=== PATIENT | female | born 1990 | race Caucasian/White ===

== ENCOUNTER 2018-04-04 10:15 | Outpatient (RCR) | payer MEDICAID, SELFPAY | END 2018-04-04 10:16 | disposition home or self-care (01) | LOC: PT 10:15 | PROVIDERS: Visit Provider Orthopaedic Surgery | DX: S82.899A Other fracture of unspecified lower leg, initial encounter for closed fracture (principal) | CPT/HCPCS: 97760 ==

== ENCOUNTER → 2018-04-11 11:44 | Outpatient (CLI) | payer MEDICAID, SELFPAY ==
--- NOTE | 2018-04-11 11:46 | XR_ITS ---
XR ankle RT min 3V HISTORY: Follow-up fracture ITS.REASON: Right Ankle Fracture ORDERING PHYSICIAN: Amaris Herrera MD PATIENT AGE: 27 years Comparison: 04/02/2018 FINDINGS: Oblique distal fibular fracture once again noted nondisplaced with good alignment. Fracture lines not significant change. IMPRESSION: Overall no change in nondisplaced oblique distal fibular fracture
== END ==
PROVIDERS: PCP Nurse Practitioner Family; Visit Provider Orthopaedic Surgery
DX: S82.899A Other fracture of unspecified lower leg, initial encounter for closed fracture (principal)
CPT/HCPCS: 73610

== ENCOUNTER → 2018-05-09 13:36 | Outpatient (CLI) | payer MEDICAID, SELFPAY ==
--- NOTE | 2018-05-09 13:38 | XR_ITS ---
XR ankle RT min 3V HISTORY: Follow-up ankle fracture ITS.REASON: Rt ankle fx ORDERING PHYSICIAN: Amaris Herrera MD PATIENT AGE: 27 years Comparison: 04/11/2018 FINDINGS: Nondisplaced oblique fracture involves the distal fibula as before. The fracture line is still visible although somewhat less distinct. No significant callus formation. IMPRESSION: No change nondisplaced oblique fracture distal fibula
== END ==
PROVIDERS: PCP Physician Assistant; Visit Provider Orthopaedic Surgery
DX: S82.891A Other fracture of right lower leg, initial encounter for closed fracture (principal)
CPT/HCPCS: 73610

== ENCOUNTER → 2018-06-06 13:43 | Outpatient (CLI) | payer MEDICAID, SELFPAY ==
--- NOTE | 2018-06-06 13:45 | XR_ITS ---
XR ankle RT min 3V HISTORY: Follow-up fracture ITS.REASON: Rt Ankle Fx ORDERING PHYSICIAN: Amaris Herrera MD PATIENT AGE: 27 years Comparison: 05/09/2018 FINDINGS: Nondisplaced oblique fracture once again noted involving the distal fibula exiting medially at the level of the ankle joint. Fracture line is still visible with no obvious significant callus formation.. Ankle mortise is not widened. IMPRESSION: No change nondisplaced oblique fracture of the distal fibula
== END ==
PROVIDERS: PCP Physician Assistant; Visit Provider Orthopaedic Surgery
DX: S82.891A Other fracture of right lower leg, initial encounter for closed fracture (principal)
CPT/HCPCS: 73610

== ENCOUNTER → 2018-07-04 13:42 | Outpatient (CLI) | payer MEDICAID, SELFPAY ==
--- NOTE | 2018-07-04 14:06 | XR_ITS ---
XR ankle wt bearing RT min 3V HISTORY: Follow-up fracture ITS.REASON: Rt ankle fx ORDERING PHYSICIAN: Amaris Herrera MD PATIENT AGE: 27 years Comparison: 06/06/2018 FINDINGS: Nondisplaced oblique fracture once again noted involving the distal fibula overall not significant change. There is good alignment in the ankle mortise is well-preserved. Fracture line still visible. IMPRESSION: No change oblique nondisplaced fracture distal fibula
== END ==
PROVIDERS: PCP Physician Assistant; Visit Provider Orthopaedic Surgery
DX: S82.899A Other fracture of unspecified lower leg, initial encounter for closed fracture (principal)
CPT/HCPCS: 73610

== ENCOUNTER 2018-08-11 16:30 | Outpatient (RCR) | payer MEDICAID, SELFPAY ==
--- NOTE | 2018-06-12 12:12 | HMH.PTOPEV ---
PT Outpatient Evaluation Rehab PT Outpatient Evaluation Start: 06/12/18 11:42 Freq: Status: Active Protocol: Document 06/12/18 11:42 LINDA (Rec: 06/12/18 12:11 VIOLETASERCANDIDOX [id number]) Electronically Signed By Rinku Taveras, MARQUEZ 06/12/18 11:42 Outpatient Therapy Subjective History Subjective History Pt. is a 27 year old female who presents to outpatient PT for complaints of chronic R ankle/foot pain since 2017. Pt. reports slipping and falling on her R ankle/foot while descending her stairs at home. Recent diagnostic imaging positive for a fracture per pt . report. Pt. reports she was told to discontinue using her axillary crutches 2 weeks ago, but to continue to don her CAM walker boot. Pt. reports she returns to her MD in the middle of 2018. PMH includes two sections . Current medications include Lortab, Prozac, Zyrtec, control, and Buspirone per pt. report. Chief Complaint Pain Symptom Type Ache Sharp Symptoms Relieved By Rest/Positioning Heat Brace/Support Prescription Meds Symptoms Aggravated By Standing Physical Activity Twisting Walking Lifting Prior Functional Limitations None Current Functional Limitations Lifting Housework Dressing Sleeping Standing Squatting Recreation Activity Walking Stairs Balance Symptom Description Constant but Variable Level of pain today (0-10) 2 Pain scale - at its best (0-10) 0 Pain scale - at its worst (0-10) 10 Ankle/Foot Eval Gait Observation General Gait Pattern Observation Antalgic Gait Wide Based Gait
== END 2018-08-20 14:06 | disposition home or self-care (01) ==
LOC: PT 16:30
PROVIDERS: Visit Provider Orthopaedic Surgery
DX: S82.831D Other fracture of upper and lower end of right fibula, subsequent encounter for closed fracture with routine healing (principal)
CPT/HCPCS: 97010; 97014; 97033; 97035; 97110; 97112; 97116; 97140; 97163; 97164; 97760; G0283

== ENCOUNTER → 2018-08-21 08:53 | Outpatient (CLI) | payer MEDICAID, SELFPAY ==
[2018-08-21 14:11] LABS: HCG Qualitative, Serum Negative (Negative)
== END ==
PROVIDERS: PCP Physician Assistant; Visit Provider Nurse Practitioner Family
DX: N91.2 Amenorrhea, unspecified (principal)
CPT/HCPCS: 36415; 84703

== ENCOUNTER → 2019-02-22 20:50 | Outpatient (CLI) | payer MEDICAID, SELFPAY ==
[2019-02-23 09:07] LABS: Adenovirus F 40/41, stool Not Detected (NotDetected); Astrovirus Not Detected (NotDetected); Campylobacter Not Detected (NotDetected); Clostridium Difficile A/B, PCR Not Detected (NotDetected); Cryptosporidium Not Detected (NotDetected); Cyclospora Cayetanesis Not Detected (NotDetected); Entamoeba histolytica Not Detected (NotDetected); Enteroaggregative E coli Not Detected (NotDetected); Enterotoxigenic E coli Not Detected (NotDetected); Giardia lamblia Not Detected (NotDetected); Norovirus Not Detected (NotDetected); Plesimonas Shigalloides, PCR Not Detected (NotDetected); Rotavirus A Not Detected (NotDetected); Salmonella, PCR Not Detected (NotDetected); Sapovirus Not Detected (NotDetected); Shiga-like toxin E coli Not Detected (NotDetected); Shigella Enterovasive E coli Not Detected (NotDetected); Vibrio Cholerae Not Detected (NotDetected); Vibrio, PCR Not Detected (NotDetected); Yersinia Entercolitica, PCR Not Detected (NotDetected)
[2019-02-23 16:50] LABS: Enteropathogenic E coli Detected (NotDetected)
== END ==
PROVIDERS: PCP Nurse Practitioner Family; Visit Provider Nurse Practitioner Family
DX: R19.7 Diarrhea, unspecified (principal); A04.0 Enteropathogenic Escherichia coli infection
CPT/HCPCS: 87507

== ENCOUNTER → 2019-09-17 14:55 | Outpatient (CLI) | payer MEDICAID, SELFPAY ==
[2019-09-17 17:07] LABS: HCG,Quantitative 808 mIU/ml (0-5.42)
== END ==
PROVIDERS: Visit Provider Nurse Practitioner Obstetrics & Gynecology
DX: Z34.90 Encounter for supervision of normal pregnancy, unspecified, unspecified trimester (principal)
CPT/HCPCS: 36415; 84702

== ENCOUNTER → 2019-10-15 10:26 | Outpatient (CLI) | payer MEDICAID, SELFPAY ==
[2019-10-15 11:08] LABS: Basophils # 0.1 K/mm3 (0-0.2); Basophils % 0.6 % (0.1-2.0); Eosinophils # 0.1 K/mm3 (0.0-0.4); Eosinophils % 0.3 % (0.1-12.0); Hemoglobin 13.6 g/dL (12.2-16.2); Lymphocytes # 2.7 K/mm3 (0.7-4.5); Lymphocytes % 17.7 % (10-50); Mean Corpuscular HGB Conc 31.6 g/dL (31.8-35.4); Mean Corpuscular Hemoglobin 24.9 pg (27.0-31.2); Mean Corpuscular Volume 78.6 fl (81-99); Monocytes # 0.5 K/mm3 (0.1-1.0); Monocytes % 3.4 % (1.7-9.3); Neutrophils % 77.9 % (37.0-80.0); Platelet Count 370 K/mm3 (142-424); Red Blood Count 5.46 M/mm3 (4.20-5.40); Red Cell Distribution Width 13.4 % (11.5-17.5); White Blood Count 15.4 K/mm3 (4.8-10.8)
[2019-10-15 11:10] LABS: MANUAL DIFFERENTIAL MANUAL DIFFERENTIAL (MANUAL DIFF)
[2019-10-15 12:41] LABS: Anisocytosis 1+; Lymphocytes % 21 % (10-50); Microcytosis 1+; Monocytes % 2 % (2-9); Neutrophils % 74 % (42-76); Platelet Estimate Normal; Total Cells Counted 100
[2019-10-16 05:16] LABS: HIV Screen 4th Generation wRfx Non Reactive (Non Reactive)
[2019-10-16 05:38] LABS: Hepatitis B Surface Antigen Negative (Negative); Hepatitis C Antibody <0.1 s/co ratio (0.0-0.9)
[2019-10-16 09:30] LABS: Rapid Plasma Reagin Ab Titer Non Reactive (NonRea<1:1)
== END ==
PROVIDERS: Visit Provider Nurse Practitioner Obstetrics & Gynecology
DX: Z34.90 Encounter for supervision of normal pregnancy, unspecified, unspecified trimester (principal); Z3A.01 Less than 8 weeks gestation of pregnancy
CPT/HCPCS: 36415; 85007; 85025; 86592; 86703; 86762; 86850; 87340; 87380; G0432

== ENCOUNTER → 2019-10-22 09:19 | Outpatient (CLI) | payer MEDICAID, SELFPAY ==
--- NOTE | 2019-10-22 09:19 | US_ITS ---
PROCEDURE: US OB TRANSVAGINAL CLINICAL INDICATION: for dates Early Ob evaluation for dates COMPARISON: No exams were available for comparison FINDINGS: An intrauterine gestational sac is present with a pole with a crown-rump length of 2.6cm correlating to gestational age of 9weeks 3days. heart tones are present with an FHR of 182bpm. Yolk sac is noted. Ovaries are not identified. IMPRESSION: Live IUP at 9 weeks 3 days Estimated due date by Ultrasound is 05/23/2020 Dictated by: Eloy Manrique MD 10/22/2019 13:55 Electronically signed by Eloy Manrique MD in [place] 10/22/2019 13:55
== END ==
PROVIDERS: PCP Nurse Practitioner Family; Visit Provider Nurse Practitioner Obstetrics & Gynecology
DX: Z34.90 Encounter for supervision of normal pregnancy, unspecified, unspecified trimester (principal)
CPT/HCPCS: 76817

== ENCOUNTER → 2019-11-26 11:01 | Outpatient (CLI) | payer MEDICAID, SELFPAY | PROVIDERS: Visit Provider Nurse Practitioner Obstetrics & Gynecology | DX: Z36.0 Encounter for antenatal screening for chromosomal anomalies (principal) | CPT/HCPCS: 36415 ==

== ENCOUNTER 2019-12-26 14:36 | Emergency (ER) | payer MEDICAID, SELFPAY ==
[2019-12-26 14:42] VITALS: BP 116/78; PULSE 95; RESP 18; TEMP 36.8; O2SAT 100; BMI 36.7
[2019-12-26 15:11] VITALS: BP 116/78; PULSE 95; RESP 18; TEMP 36.8; O2SAT 100; BMI 36.6
[2019-12-26 15:14] VITALS: BP 116/78; PULSE 95; RESP 18; TEMP 36.8; O2SAT 100; BMI 36.6
--- NOTE | 2019-12-26 15:19 | HMH.EDUTC ---
[facility] Disposition Clinical Impression: Dizzy spells Disposition: Still a Patient Condition on Discharge: Good Referrals: Ronna Rainey [Primary Care Provider] - Time of Disposition: 15:05 Medical Decision Making - Burton Inquiry Pt receiving controlled substance: No Vital Signs: 12/26/19 14:42 12/26/19 15:11 12/26/19 15:14 Temperature 98.3 F 98.3 F 98.3 F Temperature Source Oral Oral Oral Pulse Rate [Left Radial] 95 H 95 H 95 H Respiratory Rate 18 18 18 Blood Pressure [Left Arm] 116/78 116/78 116/78 Blood Pressure Mean [Left Arm] 90 90 90 Blood Pressure Source [Left Arm] Automatic Cuff Automatic Cuff Automatic Cuff Blood Pressure Position [Left Arm] Sitting Sitting Sitting 02 Sat by Pulse Oximetry 100 100 100 Oxygen Delivery Method Room Air Room Air Room Air Medical Decision Narrative: sent to ed for eval report to [facility] HPI - General Chief complaint: Dizziness Stated complaint: dizzy Time Seen by Provider: 12/26/19 15:01 Mode of Arrival: Ambulatory Source of Information: Patient Limitations: No Limitations Description of Symptoms (Recalled from Triage Doc. by RN): PATIENT C/O DIZZINESS AND LIGHTHEADEDNESS X 2 DAYS THAT HAS GOTTEN WORSE TODAY. PATIENT IS 18 WEEKS WITH HER THIRD CHILD HEENT Symptoms (Recalled from RN notes): Yes Resp Symptoms (Recalled from RN notes): No Skin Symptoms (Recalled from RN notes): No MS Symptoms (Recalled from RN notes): No Functional Status (Recalled from RN notes): WNL - History of Present Illness Provider Complaint: 29-year-old female presents for dizziness for a few days But worse today. Patient states she also has a headache with pressure. Patient states she inform Dr. Beavers at her visit of her dizziness and she was told it was probably vertigo and to take some magnesium. Patient states it is worse today and even worse if she lays down the room spins. Patient is also complaining of left lower leg pain. Patient is reporting urinary frequency states she went for 5 times last night. Patient states she has had vertigo before and this does not feel like her normal vertigo. - Related Data Home Medications Medication Instructions Recorded Confirmed fluoxetine 40 mg capsule mg PO 11/26/19 12/25/19 levothyroxine 50 mcg tablet PO 11/26/19 12/25/19 Previous Rx's Medication Instructions Recorded promethazine 12.5 mg tablet 12.5 mg PO Q4-6H PRN #30 tab 09/29/19 promethazine 12.5 mg rectal 12.5 mg ND Q6H PRN #12 each 10/15/19 suppository promethazine 6.25 mg/5 mL oral 12.5 mg PO Q4-6H PRN #473 ml 10/15/19 syrup ondansetron 4 mg disintegrating 4 mg PO Q6H #30 tab 11/09/19 tablet ferrous sulfate 325 mg (65 mg 325 mg PO DAILY #90 tab 12/25/19 iron) tablet Allergies Allergy/AdvReac Type Severity Reaction Status Date / Time azithromycin [AZITHROMYCIN] Allergy Mild Verified 12/25/19 11:02 latex [LATEX] Allergy Mild Verified 12/25/19 11:02 - Worker's Comp Is this a Worker's Comp case?: No [facility] History - Hepatitis A Screen Drug use history?: No High risk sexual behaviors?: No History of sexually transmitted infection?: No Currently employed?: No Childcare worker?: No Do you have indoor plumbing?: Yes Do you have electricity?: Yes Attestation statement:: This patient has been screened for Hepatitis A risk factors. I have reviewed the patient's past medical history: Yes 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: Reports:: Anxiety, Depression Other Surgeries: Yes: Amputation: No Fractures: Yes (ANKLE) - Social History Smoking Status: Never smoker Alcohol Intake: never Alcohol Intake Frequency:: other Occupational Status: other Housing: house - Psychiatric History Pschychiatric History:: Reports:: Anxiety, Depression Family Hx:: Non-contributory ROS Obtained: Yes Systems reviewed as appropriate & no additional complaints - Constitutional Constitutional: Reports system reviewed and no additional complaints, except as Wilkins
--- NOTE | 2019-12-26 15:20 | PC.NURSE ---
PATIENT SENT TO ER PER SANDY HINKLE APRN FOR FURTHER EVALUATION
--- NOTE | 2019-12-26 15:28 | HMH.EDDIZZ ---
ED Disposition Clinical Impression: Dizzy spells, BPPV (benign paroxysmal positional vertigo) Disposition: Home, Self-Care Condition on Discharge: Good Prescriptions: Meclizine HCl [Meclizine 25mg Tab] 25 mg PO Q8HP PRN #30 tab PRN Reason: dizziness/vertigo Transmission Status: Pending to [facility] Referrals: Ronna Rainey [Primary Care Provider] - - Critical Care Critical Care Time: No Attestation: On 12/26/19, the high probability of a clinically significant, sudden or life threatening deterioration of the following system(s) required my full and direct attention, intervention and personal management. The time I documented below is in addition to time spent performing reported procedures but includes the following listed in this critical care notation. Medical Decision Making - Medical Records Medical records reviewed: Yes: I reviewed the patient's medical records. - Burton Inquiry Pt receiving controlled substance: No Vital Signs: 12/26/19 14:42 12/26/19 15:11 12/26/19 15:14 Temperature 98.3 F 98.3 F 98.3 F Temperature Source Oral Oral Oral Pulse Rate [Left Radial] 95 H 95 H 95 H Respiratory Rate 18 18 18 Blood Pressure [Left Arm] 116/78 116/78 116/78 Blood Pressure Mean [Left Arm] 90 90 90 Blood Pressure Source [Left Arm] Automatic Cuff Automatic Cuff Automatic Cuff Blood Pressure Position [Left Arm] Sitting Sitting Sitting 02 Sat by Pulse Oximetry 100 100 100 Oxygen Delivery Method Room Air Room Air Room Air 12/26/19 16:57 Temperature Temperature Source Pulse Rate [Left Radial] 78 Respiratory Rate Blood Pressure [Left Arm] 95/47 L Blood Pressure Mean [Left Arm] 63 Blood Pressure Source [Left Arm] Automatic Cuff Blood Pressure Position [Left Arm] Sitting 02 Sat by Pulse Oximetry 97 Oxygen Delivery Method Room Air - Lab Data Lab results reviewed: Yes: I reviewed the patient's lab results. Lab Results 12/26/19 16:56: WBC 14.5 H, RBC 4.62, Hgb 12.2, Hct 36.0 L, MCV 77.9 L, MCH 26.4 L, MCHC 33.8, RDW 14.9, Plt Count 329, MPV 7.6, Neut % (Auto) 79.3, Lymph % (Auto) 16.9, Loving % (Auto) 3.2, Eos % (Auto) 0.5, Baso % (Auto) 0.1, Neut # (Auto) 11.5 H, Lymph # (Auto) 2.5, Loving # (Auto) 0.5, Eos # (Auto) 0.1, Baso # (Auto) 0.0 12/26/19 16:56: Sodium 135 L, Potassium 3.9, Chloride 103, Carbon Dioxide 25, Anion Gap 10.9, BUN 5 L, Creatinine 0.50 L, Estimated Creat Clear 216, Estimated GFR 146, Est GFR ( Amer) 177, Glucose 99, Calcium 9.3 12/26/19 16:56: Magnesium 1.8 Result diagrams: 12/26/19 16:56 12/26/19 16:56 Orders (Tests/Meds): ED MEDICATIONS Discontinued Medications Generic Name Dose Route Start Last Admin Trade Name Freq PRN Reason Stop Dose Admin Ketorolac Tromethamine 60 mg 12/26/19 15:27 12/26/19 16:43 Toradol 60mg/2ml Vial IM 12/26/19 15:28 60 mg ONCE ONE Administration Dizzy HPI - General Chief Complaint: Dizziness Stated Complaint: dizzy Time Seen by Provider: 12/26/19 15:01 Mode of Arrival: Ambulatory Source of Information: Patient Limitations: No Limitations Description of Symptoms (Recalled from ER Triage Doc. by RN): PATIENT C/O DIZZINESS AND LIGHTHEADEDNESS X 2 DAYS THAT HAS GOTTEN WORSE TODAY. PATIENT IS 18 WEEKS WITH HER THIRD CHILD - History of Present Illness HPI Narrative: Is a 29-year-old female who presents with 2-day history of dizziness patient reports dizziness worsens upon standing or change in position. She does report that the dizziness began after she had a pop in her left ear followed by the dizziness. Dizziness is moderate in intensity. Patient also reports a global headache that began shortly after her presentation to the emergency department. Pain is dull and global not exacerbated or alleviated by anything. No fever no chills or photophobia. No changes in vision or hearing. Patient does report she is 18 weeks . - Related Data Home Medications Medication Instructions
[2019-12-26 16:57] VITALS: BP 95/47; PULSE 78; O2SAT 97
[2019-12-26 17:15] LABS: Chloride 103 mmol/L (98-107); Potassium 3.9 mmoL/L (3.5-5.1); Sodium 135 mmol/L (136-145)
[2019-12-26 17:18] LABS: Blood Urea Nitrogen 5 mg/dl (7-17); Creatinine Clearance Estimated 216 mL/min (50-200); Estimated Glomerular Filt Rate 146 ml/min (>60); GFR (African American) 177 ML/MIN (>60)
[2019-12-26 17:19] LABS: Anion Gap 10.9 mEq/L (5-15); Calcium 9.3 mg/dl (8.4-10.2); Carbon Dioxide 25 mmol/L (22.0-30.0); Glucose 99 mg/dl (74-100); Magnesium 1.8 mg/dl (1.6-2.3)
[2019-12-26 17:30] LABS: Basophils % 0.1 % (0.1-2.0); Eosinophils # 0.1 K/mm3 (0.0-0.4); Eosinophils % 0.5 % (0.1-12.0); Hemoglobin 12.2 g/dL (12.2-16.2); Lymphocytes # 2.5 K/mm3 (0.7-4.5); Lymphocytes % 16.9 % (10-50); Mean Corpuscular HGB Conc 33.8 g/dL (31.8-35.4); Mean Corpuscular Hemoglobin 26.4 pg (27.0-31.2); Mean Corpuscular Volume 77.9 fl (81-99); Mean Platelet Volume 7.6 fl (7.4-10.4); Monocytes # 0.5 K/mm3 (0.1-1.0); Monocytes % 3.2 % (1.7-9.3); Neutrophils # 11.5 K/mm3 (1.8-7.8); Neutrophils % 79.3 % (37.0-80.0); Platelet Count 329 K/mm3 (142-424); Red Blood Count 4.62 M/mm3 (4.20-5.40); Red Cell Distribution Width 14.9 % (11.5-17.5); White Blood Count 14.5 K/mm3 (4.8-10.8)
[2019-12-26 17:51] VITALS: BP 95/47; PULSE 78; RESP 18; TEMP 36.8; O2SAT 97
== END 2019-12-26 17:52 | disposition home or self-care (01) ==
LOC: UTC 14:45 → ER 15:01
PROVIDERS: Emergency Provider Emergency Medicine; PCP Nurse Practitioner Family
DX: H81.10 Benign paroxysmal vertigo, unspecified ear (principal); Z3A.18 18 weeks gestation of pregnancy; F41.8 Other specified anxiety disorders; Z79.899 Other long term (current) drug therapy
CPT/HCPCS: 80048; 83735; 85025; 96372; 99282; 99283

== ENCOUNTER → 2020-01-07 10:11 | Outpatient (CLI) | payer MEDICAID, SELFPAY ==
--- NOTE | 2020-01-07 10:11 | US_ITS ---
PROCEDURE: US OB /MATERNAL DETAIL CLINICAL INDICATION: 20 week gestation Twenty week anatomy exam COMPARISON: US US OB TRANSVAGINAL from 10/22/2019 FINDINGS: There is a single live fetus which is in cephalic presentation. Cervix is closed and measures 3.9 cm transabdominal. heart body motion noted. Placenta is posterior and grade 1 without previa Complete survey performed and was unremarkable on the submitted images as in PACS. No discrete anomalies identified on survey imaging by technologist. Active fetus. Three-vessel cord with satisfactory umbilical cord insertion. 4- chamber heart noted. Survey of brain & ventricles Unremarkable. Face and neck survey unremarkable. Diaphragm and chest views unremarkable. Abdomen: Both kidneys noted and unremarkable. Stomach noted and satisfactory. Spine: Survey of the spine satisfactory with no anomalies identified nor imaged. Both arms and legs noted. Amniotic Fluid: Adequate. Maternal adnexa: No significant findings. Measurements: Average ultrasound age 20weeks. Gestational Age 20weeks 2days Estimated due date by ultrasound age 1205/26/2020. Estimated weight 340g BPD = 20weeks OFD = 20weeks HC = 19weeks 2days AC = 20weeks 6days FL = 19weeks 6days Growth Percentile= 42Percent% Heart Rate = 139bpm Cerebellum = 20weeks 5days Humerus = 20weeks 5days HC/AC is 1.05 CI is 0.8 FL/BPD is 0.69 FL/AC is 0.2 IMPRESSION: Live IUP at 20 weeks 0 days. No obvious anomalies. Please see above for detail Dictated by: Eloy Manrique MD 01/08/2020 10:16 Eloy Manrique MD in [place] 01/08/2020 10:16
== END ==
PROVIDERS: PCP Nurse Practitioner Family; Visit Provider Nurse Practitioner Obstetrics & Gynecology
DX: Z34.90 Encounter for supervision of normal pregnancy, unspecified, unspecified trimester (principal); Z3A.20 20 weeks gestation of pregnancy
CPT/HCPCS: 76811

== ENCOUNTER → 2020-02-16 07:01 | Outpatient (CLI) | payer MEDICAID, SELFPAY ==
[2020-02-16 08:55] LABS: Glucose 1 Hour 176 mg/dL (74-100); Glucose,Fasting 92 mg/dl (74-100)
== END ==
PROVIDERS: Visit Provider Nurse Practitioner Obstetrics & Gynecology
DX: Z34.90 Encounter for supervision of normal pregnancy, unspecified, unspecified trimester (principal)
CPT/HCPCS: 36415; 82951

== ENCOUNTER → 2020-02-18 07:00 | Outpatient (CLI) | payer MEDICAID, SELFPAY ==
[2020-02-18 07:46] LABS: Glucose,Fasting 98 mg/dl (74-100)
[2020-02-18 09:09] LABS: Glucose 1 Hour 202 mg/dL (74-100)
[2020-02-18 10:09] LABS: Glucose 2 Hour 158 mg/dL (74-100)
[2020-02-18 11:17] LABS: Glucose 3 Hour 145 mg/dL (74-100)
== END ==
PROVIDERS: Visit Provider Nurse Practitioner Obstetrics & Gynecology
DX: Z34.90 Encounter for supervision of normal pregnancy, unspecified, unspecified trimester (principal)
CPT/HCPCS: 36415; 82951

== ENCOUNTER → 2020-04-22 10:24 | Outpatient (CLI) | payer MEDICAID, SELFPAY ==
--- NOTE | 2020-04-22 10:24 | US_ITS ---
PROCEDURE: US OB BIOPHYSICAL PROFILE CLINICAL INDICATION: gestational diabetes TECHNIQUE: FINDINGS: The following parameters are obtained: Average ultrasound age is Average 34 weeks 0 days estimated due date by ultrasound is 06/03/2020. Estimated weight is 2429 g which is 20th percentile. BPD: 33 weeks 6 days OFD: 31 weeks 1 day HC: 32 weeks 1 day AC: 34 weeks 6 days FL: 35 weeks 0 days heart rate: 152 bpm. HC/AC: 0.94 Cephalic index: 84 percent FL/BPD: 81 percent FL/AC: 22 percent Amniotic fluid index: 10 cm Qualitative AFV: 2 breathing movements: 2 Gross body movements: 2 Tone: 2 Biophysical profile score: 8 The fetus is in cephalic presentation. Heart rate is 146 BPM. The placenta is posterior and lateral and is grade 2-3 IMPRESSION: Live IUP in cephalic presentation with an average ultrasound age of 34 weeks 0 days. Estimated weight is 2004 in 29 g which is 20th percentile. Placenta is posterior and lateral and grade 2-3 Biophysical profile 8 of 8 ZACH 10 cm Dictated by: Eloy Manrique MD 04/22/2020 15:57 Eloy Manrique MD in [place] 04/22/2020 15:57
== END ==
PROVIDERS: PCP Nurse Practitioner Family; Visit Provider Nurse Practitioner Obstetrics & Gynecology
DX: O24.419 Gestational diabetes mellitus in pregnancy, unspecified control (principal)
CPT/HCPCS: 76811; 76819

== ENCOUNTER 2020-04-29 11:20 | Outpatient (CLI) | payer MEDICAID, SELFPAY ==
[2020-04-29 11:49] VITALS: BP 110/80; PULSE 110; RESP 20; O2SAT 97; BMI 38.0
== END 2020-04-29 13:15 | disposition home or self-care (01) ==
LOC: OBOUT 11:22 → OB 11:22
PROVIDERS: PCP Surgery; Visit Provider Nurse Practitioner Obstetrics & Gynecology
DX: O47.03 False labor before 37 completed weeks of gestation, third trimester (principal); Z3A.36 36 weeks gestation of pregnancy; R11.0 Nausea
CPT/HCPCS: 59025; 96372; G0463

== ENCOUNTER → 2020-04-29 15:55 | Outpatient (CLI) | payer MEDICAID, SELFPAY ==
[2020-04-29 15:58] LABS: Microscopic, Urine URINE MICROSCOPIC (MICROSCOPIC)
[2020-04-29 16:42] LABS: Appearance,Urine CLEAR (Clear); Bilirubin,Urine Negative (Negative); Blood, Urine Negative (Negative); Color,Urine YELLOW (Yellow); Glucose,Urine (UA) Negative (Negative); Ketones,Urine Negative (Negative); Leukocyte Esterase,Urine Negative (Negative); Nitrate,Urine Negative (Negative); Protein,Urine Negative (Negative); Urobilinogen,Urine 0.2 EU/dl (0.2)
[2020-04-29 17:44] LABS: Bacteria,Urine 2+ /lpf
== END ==
PROVIDERS: Visit Provider Nurse Practitioner Obstetrics & Gynecology
DX: Z34.90 Encounter for supervision of normal pregnancy, unspecified, unspecified trimester (principal); Z3A.36 36 weeks gestation of pregnancy
CPT/HCPCS: 81001; 86403; 87086

== ENCOUNTER → 2020-05-05 15:05 | Outpatient (CLI) | payer MEDICAID, SELFPAY ==
[2020-05-05 15:06] LABS: Microscopic, Urine URINE MICROSCOPIC (MICROSCOPIC)
[2020-05-05 15:38] LABS: Appearance,Urine SL CLOUDY (Clear); Bilirubin,Urine Negative (Negative); Blood, Urine Negative (Negative); Color,Urine YELLOW (Yellow); Glucose,Urine (UA) Negative (Negative); Ketones,Urine Negative (Negative); Leukocyte Esterase,Urine Negative (Negative); Nitrate,Urine Negative (Negative); PH,Urine 5.5 (5.0-8.5); Protein,Urine Negative (Negative); Urobilinogen,Urine 0.2 EU/dl (0.2)
[2020-05-05 15:49] LABS: Bacteria,Urine 1+ /lpf; WBC,Urine Occasional #/hpf (0-3)
== END ==
PROVIDERS: Visit Provider Nurse Practitioner Obstetrics & Gynecology
DX: Z34.90 Encounter for supervision of normal pregnancy, unspecified, unspecified trimester (principal); Z3A.37 37 weeks gestation of pregnancy
CPT/HCPCS: 81001

== ENCOUNTER 2020-05-16 05:22 | Inpatient (IN) | payer MEDICAID, SELFPAY ==
[2020-05-16] VITALS (10 sets, daily range): BP systolic 102–126; BP diastolic 58–77; PULSE 68–89; RESP 16–20; TEMP 36.1–36.8; O2SAT 96–100; BMI 38.3
[2020-05-16 06:19] LABS: Microscopic, Urine URINE MICROSCOPIC (MICROSCOPIC)
[2020-05-16 06:20] LABS: Chloride 105 mmol/L (98-107)
[2020-05-16 06:21] LABS: Sodium 135 mmol/L (136-145)
[2020-05-16 06:23] LABS: Basophils % 0.4 % (0.1-2.0); Blood Urea Nitrogen 9 mg/dl (7-17); Creatinine Clearance Estimated 188 mL/min (50-200); Eosinophils # 0.1 K/mm3 (0.0-0.4); Eosinophils % 0.6 % (0.1-12.0); Estimated Glomerular Filt Rate 118 ml/min (>60); GFR (African American) 143 ML/MIN (>60); Hematocrit 37.1 % (37.0-47.0); Hemoglobin 12.1 g/dL (12.2-16.2); Lymphocytes # 3.6 K/mm3 (0.7-4.5); Mean Corpuscular HGB Conc 32.6 g/dL (31.8-35.4); Mean Corpuscular Hemoglobin 24.3 pg (27.0-31.2); Mean Corpuscular Volume 74.4 fl (81-99); Monocytes # 0.7 K/mm3 (0.1-1.0); Monocytes % 5.1 % (1.7-9.3); Neutrophils # 8.4 K/mm3 (1.8-7.8); Neutrophils % 65.9 % (37.0-80.0); Platelet Count 368 K/mm3 (142-424); Red Blood Count 4.98 M/mm3 (4.20-5.40); Red Cell Distribution Width 15.9 % (11.5-17.5); White Blood Count 12.8 K/mm3 (4.8-10.8)
[2020-05-16 06:24] LABS: Carbon Dioxide 23 mmol/L (22.0-30.0); Glucose 89 mg/dl (74-100)
[2020-05-16 06:25] LABS: Appearance,Urine CLEAR (Clear); Bilirubin,Urine Negative (Negative); Blood, Urine Negative (Negative); Color,Urine YELLOW (Yellow); Glucose,Urine (UA) Negative (Negative); Ketones,Urine Negative (Negative); Leukocyte Esterase,Urine Negative (Negative); Nitrate,Urine Negative (Negative); Protein,Urine Negative (Negative); Urobilinogen,Urine 0.2 EU/dl (0.2)
[2020-05-16 06:36] LABS: Barbiturates Screen,Urine Negative ng/ml (<200); Benzodiazepines Screen,Urine Negative ng/ml (<200)
[2020-05-16 06:37] LABS: Amphetamine/Metha Screen,Urine Negative ng/ml (<1000)
[2020-05-16 06:39] LABS: Methadone Screen,Urine Negative ng/ml (<300)
[2020-05-16 06:40] LABS: Cannabinoid Screen,Urine Negative ng/ml (<50); Cocaine Screen,Urine Negative ng/ml (<300)
[2020-05-16 06:41] LABS: Opiate Screen,Urine Negative ng/ml (<300); Phencyclidine Screen,Urine Negative ng/ml (<25)
[2020-05-16 06:54] LABS: Coronavirus 19 IgG Antibody Negative (Negative); Coronavirus 19 IgM Antibody Negative (Negative)
--- NOTE | 2020-05-16 07:21 | HMH.OBAPHP ---
OB - H&P: HPI Antepartum - History of Present Illness Chief complaint: Term , previous section, desire for sterilization History of present illness: She is a 29-year-old 3 para 2 at 39 weeks gestational age. She has gestational diabetes that is diet-controlled. She has had 2 previous sections and as result of that is brought in for repeat lower segment transverse section at term. She also expressed desire for sterilization. The risks and benefits as well as the irreversibility of bilateral salpingectomy were discussed with the patient prior to surgery. - History of Present Criteria for establishing EDC:: LMP confirmed by 1st trimester US care: good care Ultrasounds: normal 1st trimester US, normal mid trimester US Obstetrical complications: gestational diabetes Medical complications: none - Labs Blood type: A (+) positive Rubella: immune RPR/VDRL: nonreactive GBS status: negative HBsAG: negative [facility] History I have reviewed the patient's past medical history: Yes 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: Reports:: Anxiety, Depression *Have you ever received a pneumonia vaccine?: No *Have you received a flu vaccine this season?: Yes Other Surgeries: Yes: Amputation: No Fractures: Yes (ANKLE) - *Social History Smoking Status: Never smoker Alcohol Intake: never Alcohol Intake Frequency:: other Substance Use Type: denies use *Occupational Status:: employed Housing: house *Travel in the last 8 weeks: None - Psychiatric History Pschychiatric History:: Reports:: Anxiety, Depression Family Hx:: Non-contributory Para: 2 Review of Systems - Review of Systems Review of systems:: pertinent systems reviewed and negative unless documented below Meds Home Medications Medication Instructions Recorded Confirmed Type fluoxetine 40 mg capsule 40 mg PO DAILY 11/26/19 05/12/20 History levothyroxine 50 mcg tablet 50 mcg PO DAILY 11/26/19 05/12/20 History ferrous sulfate 325 mg (65 mg 325 mg PO DAILY #90 tab 12/25/19 05/12/20 Rx iron) tablet levocetirizine 5 mg tablet 5 mg PO DAILY tab 02/19/20 05/16/20 History blood sugar diagnostic See Rx Instructions .ROUTE 02/25/20 05/12/20 Rx .MEDSUPPLY #10 each blood-glucose meter See Rx Instructions .ROUTE 02/25/20 05/12/20 Rx .MEDSUPPLY #1 each lancets See Rx Instructions .ROUTE 02/25/20 05/12/20 Rx .MEDSUPPLY #100 each flu vac qs 2019-(4 yr up) CD 60 IM 03/25/20 05/12/20 History mcg (15 mcg x 4)/0.5 mL IM susp lancets 33 gauge See Rx Instructions .ROUTE 03/25/20 05/12/20 History .MEDSUPPLY #100 each Ondansetron [Zofran 4mg ODT] 4 mg PO Q6H 05/16/20 05/16/20 History Allergies Allergy/AdvReac Type Severity Reaction Status Date / Time azithromycin [AZITHROMYCIN] Allergy Mild Verified 05/12/20 10:08 latex [LATEX] Allergy Mild Verified 05/12/20 10:08 OB - H&P: Exam - Physical Exam Vital signs: Temp Pulse Resp BP Pulse Ox 98.3 F 87 20 102/65 L 97 05/16/20 06:17 05/16/20 06:17 05/16/20 06:17 05/16/20 06:17 05/16/20 06:17 - Constitutional no acute distress - Routine HEENT Exam Head: Present: normocephalic Eye: Present: EOMI, PERRL ENT: Present: mucous membranes moist - Routine Neck Exam Present: supple, full ROM - Routine Respiratory Exam Absent: accessory muscle use (good air entry bilaterally), respiratory distress, wheezes, crackles - Routine Cardiovascular Exam Present: RRR. Absent: murmur - Routine Abdominal Exam Present: soft, normoactive bowel sounds. Absent: tenderness, distended, guarding - Routine Rectal Exam Patient deferred: visual exam, digital exam - Routine Exam Patient deferred: external exam, groin exam, perineal exam - Routine Extremities Exam Present: full ROM. Absent: cyanosis, edema - Routine Skin Exam Present: intact. Absent: cyanosis - Routine Neurological Exam Present: alert, oriented X3 - Routine Psychiatr
[2020-05-16 07:56] LABS: Cord Blood PH 7.38 (7.35-7.45)
--- NOTE | 2020-05-16 08:33 | HMH.OPNOTE ---
Date of procedure: 05/16/20 Pre-op Diagnosis:: Term , previous section, desire for sterilization, gestational diabetes Post-op Diagnosis:: Term , previous section, gestational diabetes, desire for sterilization, pelvic peritoneal adhesions Procedure performed:: Repeat lower segment transverse section, bilateral salpingectomy, lysis of adhesions Surgeon:: Jed Jacobs MD Software Engineering Associate Manager(s):: Jinny Jameson CO DIRECTOR:: Grant Jaime Anesthesia: spinal Estimated blood loss (mL): 800 Clinical Note:: She is a 29-year-old 3 para 2 who was 39 weeks gestational age. She has been followed with diet-controlled gestational diabetes throughout the . She has done well with this. She also expressed desire for sterilization. She is brought in for repeat lower segment transverse section at term. The risks and benefits of surgery as well as the irreversibility of bilateral salpingectomy were discussed with the patient prior to surgery. Operative findings:: She delivered a liveborn male child at 7:46 AM on the morning of May 16, 2020. The baby had a nuchal cord x2 that was loose. Apgars were 9 at 1 minute and 9 at 5 minutes. Ovaries and tubes appeared normal. There were some adhesions along the tubes especially on the left side. There were extensive adhesions of omentum to the anterior abdominal wall. The uterus itself was also adherent to the anterior abdominal wall. Operative note:: She was taken to the operating room where spinal anesthesia was found be adequate. She was prepped and draped in normal sterile fashion in the supine position with a leftward tilt. A Cerda catheter was in the bladder. A Pfannenstiel skin incision was made with knife then carried through to the underlying layer of fascia with cautery. The fascia was opened in the midline with cautery and extended laterally using Olvera scissors. Austin clamps were applied to the superior aspect of the fascial incision which was tented up and the underlying rectus muscles dissected off using cautery. The Ivan clamps were then applied to the inferior aspect of the fascial incision which in a similar fashion was tented up and the underlying rectus muscles dissected off using cautery. The rectus muscles were then in the midline, the peritoneum identified, and entered sharply with Metzenbaum scissors. This incision was then extended superiorly and inferiorly with cautery. We had good visualization of the bladder inferiorly. The bladder peritoneum was then opened in the midline and extended laterally using Metzenbaum scissors. A bladder flap was created digitally. Transverse incision was made through the uterine muscle to the amnion. This incision was then extended laterally using fingers traction. The amnion was entered sharply with knife. There was clear amniotic fluid. The 's head was then delivered atraumatically. There were 2 loose nuchal cords that were then reduced. This was followed by the anterior shoulder and the rest of the infant's body atraumatically. The oropharynx and nasopharynx were bulb suctioned. The was vigorous so we allowed the cord to continue to pulsate for approximately 1 minute. The infant was then handed off to Dr. Morton Who assigned Apgars of 9 at 1 minute and 9 at 5 minutes. We then obtained cord blood as well as cord pH. Using gentle traction on the cord and countertraction on the fundus I was able to easily deliver the placenta intact. It had a normal three-vessel cord. The uterus was then cleared of clots and debris . The uterine incision was then closed using running 0 Vicryl suture in a locked fashion. A second layer of the same suture was used to imbricate the first layer. The gutters and cul-de-sac were then cleared of clots and debris . Once again hemostasis was assured. There were adhesions on the both right and left side of the uterus around the round ligaments and o
--- NOTE | 2020-05-16 08:33 | HMH.ANESCL ---
[facility] Anesthesia Checklist - Patient Identification Patient Identification: Arm Band - Structural Data Admitted From: Inpatient Planned Operative Procedure/s: Repeat C/S with BTL Consent for Planned Operative Procedure(s) Verified: Yes Verified Documents: Surgical Consent, History and Physical - NPO Status Verified Time NPO: 00:00 - Additional verifications Anesthesia Reactions: No - Airway Assessment C-Spine Mobility Assessed: Yes (mp2) TMJ Mobility Assessed: Yes Dentition: Good Dentition - Neurological Assessment Level of Consciousness: Awake, Alert - Anesthesia Plan Anesthesia Risk discussed: Yes Anesthesia Plan: Verified ASA Class: II Anesthesia Type: Spinal [facility] History I have reviewed the patient's past medical history: Yes 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: Reports:: Anxiety, Depression *Have you ever received a pneumonia vaccine?: No *Have you received a flu vaccine this season?: Yes Anesthesia experience/problems:: nac Other Surgeries: Yes: Amputation: No Fractures: Yes (ANKLE) - *Social History Smoking Status: Never smoker Alcohol Intake: never Alcohol Intake Frequency:: other Substance Use Type: denies use *Occupational Status:: employed Housing: house *Travel in the last 8 weeks: None - Psychiatric History Pschychiatric History:: Reports:: Anxiety, Depression Family Hx:: Non-contributory Para: 2
--- NOTE | 2020-05-16 08:34 | P.PN_ITS ---
[facility] Anesthesia Record Part I Intake, IV Amount: 2,000 Estimated blood loss (mL): 800 Urine output (mL): 300 Blood Pressure: 126/59 SaO2: 99 Pulse Rate: 71 Respiratory Rate: 16 Temperature: 97.6 F Patient is:: Awake, Stable Stable to PACU at:: 08:30
[2020-05-16 08:50] LABS: POC Glucose,Bedside 77 (70-110)
[2020-05-16 10:17] LABS: POC Glucose,Bedside 100 (70-110)
--- NOTE | 2020-05-16 11:24 | P.PN_ITS ---
[facility] Anesthesia Record Part II Discharge Time: 09:00 Destination: Obstetric PACU nurse assessment reviewed?: Yes Patient Condition:: Good Anesthesia Complications:: None Swallowing reflex intact?: Yes Cyanosis?: No Blood Pressure: 124/77 Pulse Rate: 69 Temperature: 97.0 F Mental Status: Alert & Oriented Pain level:: 0 Nausea and/or vomitting:: None Intake, IV Amount: 0
[2020-05-16 12:52] LABS: Microscopic,Cath URINE MICROSCOPIC (MICROSCOPIC)
--- NOTE | 2020-05-16 15:00 | P.CONPHA_ITS ---
[facility] Pharmacy VTE Monitoring - Patient Demographics Admission date: 05/16/20 Report Date: 05/16/20 Time: 15:00 Allergies/Adverse Reactions: Patient Allergies azithromycin [AZITHROMYCIN] Allergy (Mild, Verified 05/12/20 10:08) latex [LATEX] Allergy (Mild, Verified 05/12/20 10:08) Height: 1.5 m Weight: 86.183 kg Patient Problems: Current Active Problems Previous section complicating (Acute) delivery delivered (Acute) Encounter for female sterilization procedure (Acute) Gestational diabetes (Acute) - VTE Risk Labs: VTE Related Lab Results Hgb 12.1 g/dL (12.2-16.2) L 05/16/20 05:35 Hct 37.1 % (37.0-47.0) 05/16/20 05:35 Plt Count 368 K/mm3 (142-424) 05/16/20 05:35 BUN 9 mg/dl (7-17) 05/16/20 05:35 Creatinine 0.60 mg/dl (0.52-1.04) 05/16/20 05:35 Estimated Creat Clear 188 mL/min (50-200) 05/16/20 05:35 Clinical Trial Participant: No - Prophylaxis VTE Prophylaxis Ordered?: Yes Types of VTE Prophylaxis: IPCS Thigh High
[2020-05-16 15:32] LABS: Appearance,Urine/Cath CLEAR (Clear); Bilirubin,Cath Negative (Negative); Blood, Urine/Cath Negative (Negative); Color,Urine/Cath YELLOW (Yellow); Glucose,Urine/Cath (UA) Negative (Negative); Ketones,Urine/Cath Negative (Negative); Leukocyte Esterase,Cath Negative (Negative); Nitrate,Cath Negative (Negative); Protein,Urine/Cath Negative (Negative); Specific Gravity, Urine/Cath <= 1.005 (1.005-1.030); Urobilinogen,Cath 0.2 EU/dl (0.2)
[2020-05-16 16:14] LABS: RBC,Urine/Cath Occasional # /hpf (0-3)
[2020-05-16 17:05] LABS: Hematocrit 35.7 % (37.0-47.0)
[2020-05-16 17:21] LABS: Hemoglobin 11.3 g/dL (12.2-16.2)
[2020-05-17 03:39] VITALS: BP 120/76; PULSE 96; RESP 18; TEMP 36.8; O2SAT 97
[2020-05-17 07:15] LABS: Basophils % 0.2 % (0.1-2.0); Eosinophils # 0.1 K/mm3 (0.0-0.4); Eosinophils % 0.4 % (0.1-12.0); Hematocrit 34.5 % (37.0-47.0); Hemoglobin 10.5 g/dL (12.2-16.2); Lymphocytes # 2.1 K/mm3 (0.7-4.5); Mean Corpuscular HGB Conc 30.6 g/dL (31.8-35.4); Mean Corpuscular Hemoglobin 23.6 pg (27.0-31.2); Mean Corpuscular Volume 77.2 fl (81-99); Mean Platelet Volume 7.4 fl (7.4-10.4); Monocytes # 0.7 K/mm3 (0.1-1.0); Monocytes % 4.9 % (1.7-9.3); Neutrophils # 11.9 K/mm3 (1.8-7.8); Neutrophils % 80.5 % (37.0-80.0); Platelet Count 328 K/mm3 (142-424); Red Blood Count 4.47 M/mm3 (4.20-5.40); White Blood Count 14.8 K/mm3 (4.8-10.8)
--- NOTE | 2020-05-17 08:25 | P.PN_ITS ---
Internal Medicine - PN: Subj *Date: 05/17/20 *Time: 08:25 Interval history: She is doing very well this morning. She is eating and drinking and ambulating. Her pain is reasonably well controlled. Her lochia is normal. She is breast- feeding. Exam Vital signs and Labs for Last 24 Hours: Temp Pulse Resp BP Pulse Ox 98.3 F 96 H 18 120/76 97 05/17/20 03:39 05/17/20 03:39 05/17/20 03:39 05/17/20 03:39 05/17/20 03:39 Laboratory Results - last 24 hr 05/16/20 07:16: POC Glucose 77 05/16/20 07:32: Urine Color Yellow, Urine Appearance Clear, Urine pH 7.0, Ur Specific [place] <= 1.005, Urine Protein Negative, Urine Glucose (UA) Negative, Urine Ketones Negative, Urine Blood Negative, Urine Nitrate Negative, Urine Bilirubin Negative, Urine Urobilinogen 0.2, Ur Leukocyte Esterase Negative, Urine RBC Occasional, Urine WBC 3-5, Ur Squamous Epith Cells 3-5 05/16/20 09:22: POC Glucose 100 05/16/20 16:40: Hgb 11.3 L, Hct 35.7 L 05/17/20 07:05: WBC 14.8 H, RBC 4.47, Hgb 10.5 L, Hct 34.5 L, MCV 77.2 L, MCH 23.6 L, MCHC 30.6 L, RDW 16.0, Plt Count 328, MPV 7.4, Neut % (Auto) 80.5 H, Lymph % (Auto) 14.0, [place] % (Auto) 4.9, Eos % (Auto) 0.4, Baso % (Auto) 0.2, Neut # (Auto) 11.9 H, Lymph # (Auto) 2.1, [place] # (Auto) 0.7, Eos # (Auto) 0.1, Baso # (Auto) 0.0 I & O for Last 24 hours: Intake & Output 05/14/20 05/15/20 05/16/20 05/17/20 11:59 11:59 11:59 11:59 Intake Total 1999 Output Total 500 / 500 Balance 1999 -500 / -500 Weight 190 lb - Constitutional no acute distress - *Routine HEENT Exam Head: Present: normocephalic Eye: Present: EOMI, PERRL ENT: Present: mucous membranes moist Assessment and Plan (1) Previous section complicating Status: Acute Category: Surgical Code(s): O34.219 - Maternal care for unspecified type scar from previous delivery (2) delivery delivered Status: Acute Category: Medical Code(s): O82 - Encounter for delivery without indication (3) Encounter for female sterilization procedure Status: Acute Category: Medical Code(s): Z30.2 - Encounter for sterilization (4) Gestational diabetes Status: Acute Category: Medical Code(s): O24.419 - Gestational diabetes mellitus in , unspecified control - Assessment and plan all Dx Assessment and Plan for all problems:: She is doing well this morning. We will plan to send her home in 48 hours time.
--- NOTE | 2020-05-18 10:26 | HMH.OBDCSM ---
General - General Admission date:: 05/16/20 Discharge date: 05/18/20 HPI - History of Present Illness History of present illness: She is a 29-year-old 3 now para 3 who was 39 weeks gestational age. She has had 2 previous sections and as result of that was offered repeat lower segment transverse section at term. She also expressed desire for sterilization and had a bilateral salpingectomy as well. Hospital Course Hospital Course: On May 16, 2020 she underwent a repeat lower segment transverse section and bilateral salpingectomy. She delivered a liveborn male child at 7:46 AM. The baby had Apgars of 9 at 1 minute and 9 at 5 minutes. He weighed 6 pounds 7 ounces and was 19 inches long. She has done well postoperatively and has remained afebrile throughout her hospitalization. She is eating and drinking and ambulating. She is breast-feeding. Her pain is reasonably well controlled. She has a positive blood, she is rubella immune and was group B streptococcus negative. Her hot man is Dr. Morton. She is discharged home to follow-up with me in approximately 2 weeks time. She will continue with her vitamins and iron. She was given the usual instructions with respect to limiting her activity, driving and sexual activity. Her condition on discharge is stable and improved. Rhogam Administration: Not Indicated Objective Vital signs: Temp Pulse Resp BP Pulse Ox 98.3 F 96 H 18 120/76 97 05/17/20 03:39 05/17/20 03:39 05/17/20 03:39 05/17/20 03:39 05/17/20 03:39 no acute distress - *Routine HEENT Exam Head: Present: normocephalic Eye: Present: EOMI, PERRL ENT: Present: mucous membranes moist DS: Diagnosis - Discharge Diagnosis (1) Previous section complicating Status: Acute (2) delivery delivered Status: Acute (3) Encounter for female sterilization procedure Status: Acute (4) Gestational diabetes Status: Acute Discharge Plan - Patient Discharge Instructions ACTIVITY: No heavy lifting DIET: continue same diet Additional Instructions: No driving No heavy lifting Nothing in the vagina for 6 weeks Patient Instructions: Depression, Hemorrhage, DI for , DI for Pre-eclampsia, [facility] Post Discharge Instructions, Preventing the Spread of Coronavirus Discharge Instructions - Follow up Plan Follow up with: Jed Jacobs MD [Staff Physician] - 05/30/20 1:45 pm Disposition: Home, Self-Senior Living Medications: Home Medications Medication Instructions Recorded Confirmed Type fluoxetine 40 mg capsule 40 mg PO DAILY 11/26/19 05/16/20 History levothyroxine 50 mcg tablet 50 mcg PO DAILY 11/26/19 05/16/20 History levocetirizine 5 mg tablet 5 mg PO PM tab 02/19/20 05/16/20 History Ondansetron [Zofran 4mg ODT] 4 mg PO Q6H 05/16/20 05/16/20 History Ibuprofen [Motrin 400mg 400 mg PO Q4HP PRN #40 tab 05/18/20 Rx tablet] Oxycodone HCl/Acetaminophen 1 tab PO Q4-6H PRN #20 tablet 05/18/20 Rx [Percocet 5/325mg tablet] Prescriptions/Medication Reconciliation: New Oxycodone HCl/Acetaminophen [Percocet 5/325mg tablet] 1 tab PO Q4-6H PRN #20 tablet PRN Reason: Severe Pain Ibuprofen [Motrin 400mg tablet] 400 mg PO Q4HP PRN #40 tab PRN Reason: Moderate Pain Continued fluoxetine 40 mg capsule 40 mg PO DAILY levothyroxine 50 mcg tablet 50 mcg PO DAILY levocetirizine 5 mg tablet 5 mg PO PM tab Ondansetron [Zofran 4mg ODT] 4 mg PO Q6H - Problem Reconciliation Problems Reviewed?: Yes
== END 2020-05-18 15:00 | disposition home or self-care (01) | DRG 785 ==
PROVIDERS: Admitting Provider Nurse Practitioner Obstetrics & Gynecology; PCP Nurse Practitioner Family; Visit Provider Nurse Practitioner Obstetrics & Gynecology
PROC: 10D00Z1 Extraction of Products of Conception, Low, Open Approach (ICD-10-PCS; CPT 59514; principal; 2020-05-16 07:30)
DX: O24.410 Gestational diabetes mellitus in pregnancy, diet controlled (principal); O34.211 Maternal care for low transverse scar from previous cesarean delivery; N85.8 Other specified noninflammatory disorders of uterus; Z3A.39 39 weeks gestation of pregnancy; Z37.0 Single live birth; O69.81X0 Labor and delivery complicated by cord around neck, without compression, not applicable or unspecified; Z30.2 Encounter for sterilization
CPT/HCPCS: 59514; 58700; 36415; 59025; 80048; 80305; 81001; 82800; 82962; 85014; 85018; 85025; 86328; 86850; 88302; 94761; J2405

== ENCOUNTER → 2020-07-22 11:20 | Outpatient (CLI) | payer MEDICAID, SELFPAY ==
--- NOTE | 2020-07-22 11:24 | XR_ITS ---
PROCEDURE: XR KNEE LT 3V CLINICAL INDICATION: PAIN IN LT KNEE COMPARISON: No exams were available for comparison FINDINGS: No fracture or dislocation. No lytic or blastic change. There is normal mineralization. The joint spaces are well-preserved. No significant degenerative/arthritic changes. No erosive changes evident. Other findings:None. IMPRESSION: No acute findings. Dictated by: Eloy Manrique MD 07/22/2020 16:03 Eloy Manrique MD in [place] 07/22/2020 16:03
== END ==
PROVIDERS: PCP Nurse Practitioner Family; Visit Provider Nurse Practitioner Family
DX: M25.562 Pain in left knee (principal)
CPT/HCPCS: 73562

== ENCOUNTER 2020-08-05 09:00 | Outpatient (RCR) | payer MEDICAID, SELFPAY | END 2020-08-24 16:00 | disposition home or self-care (01) | LOC: PT.CARL 09:00 | PROVIDERS: Visit Provider Nurse Practitioner Family | DX: M25.562 Pain in left knee (principal) | CPT/HCPCS: 97110; 97163 ==

== ENCOUNTER 2020-12-18 09:06 | Emergency (ER) | payer MEDICAID, SELFPAY ==
[2020-12-18 09:07] VITALS: BP 113/87; PULSE 89; RESP 18; TEMP 36.8; O2SAT 98; BMI 38.3
--- NOTE | 2020-12-18 09:29 | HMH.EDABDPAI ---
ED Disposition Clinical Impression: Abdominal pain Qualifiers: Abdominal location: generalized Qualified Code(s): R10.84 - Generalized abdominal pain Disposition: Home, Self-Care Condition on Discharge: Good Instructions: DI for Acute Abdominal Pain Prescriptions: Hydrocod/Acet 5/325 mg [[place] 5/325mg tablet] 1 tab PO Q6HP PRN #7 tab PRN Reason: Moderate Pain Transmission Status: Sent to [employer] Referrals: Ronna Rainey [Primary Care Provider] - Jed Jacobs MD [Staff Physician] - - Critical Care Critical Care Time: No Attestation: On 12/18/20, the high probability of a clinically significant, sudden or life threatening deterioration of the following system(s) required my full and direct attention, intervention and personal management. The time I documented below is in addition to time spent performing reported procedures but includes the following listed in this critical care notation. Medical Decision Making - Medical Records Medical records reviewed: Yes: I reviewed the patient's medical records. - [place] Inquiry Pt receiving controlled substance: No Vital Signs: 12/18/20 09:07 Temperature 98.3 F Temperature Source Oral Pulse Rate [Right] 89 Respiratory Rate 18 Blood Pressure [Right Arm] 113/87 Blood Pressure Mean [Right Arm] 95 02 Sat by Pulse Oximetry 98 Oxygen Delivery Method Room Air - Lab Data Lab Results 12/18/20 09:23: Urine Color Yellow, Urine Appearance Clear, Urine pH 7.5, Ur Specific [place] 1.020, Urine Protein Trace, Urine Glucose (UA) Negative, Urine Ketones Negative, Urine Blood Negative, Urine Nitrate Negative, Urine Bilirubin Negative, Urine Urobilinogen 0.2, Ur Leukocyte Esterase Negative, Urine RBC None, Urine WBC Occasional, Ur Squamous Epith Cells 10-20, Urine Bacteria 1+ 12/18/20 09:27: WBC 13.1 H, RBC 5.43 H, Hgb 13.1, Hct 39.9, MCV 73.5 L, MCH 24.1 L, MCHC 32.8, RDW 14.9, Plt Count 403, MPV 7.0 L, Neut % (Auto) 67.0, Lymph % (Auto) 27.4, [place] % (Auto) 4.0, Eos % (Auto) 1.0, Baso % (Auto) 0.7, Neut # (Auto) 8.7 H, Lymph # (Auto) 3.6, [place] # (Auto) 0.5, Eos # (Auto) 0.1, Baso # (Auto) 0.1 12/18/20 09:27: Sodium 138, Potassium 4.0, Chloride 102, Carbon Dioxide 31 H, Anion Gap 9.0, BUN 12, Creatinine 0.70, Estimated Creat Clear 160, Estimated GFR 98, Est GFR ( Amer) 119, Glucose 93, Calcium 9.0, Total Bilirubin 0.5, AST 31, ALT 32, Alkaline Phosphatase 135 H, Total Protein 7.5, Albumin 4.1, Globulin 3.4 H, Albumin/Globulin Ratio 1.2, Lipase 111 12/18/20 09:30: Urine HCG, Qual Negative Result diagrams: 12/18/20 09:27 12/18/20 09:27 Orders (Tests/Meds): ED MEDICATIONS Generic Name Dose Route Start Last Admin Trade Name Freq PRN Reason Stop Dose Admin Sodium Chloride 1,000 mls @ 999 mls/hr 12/18/20 10:30 12/18/20 10:20 Sod Chlor 0.9% 1000ml Bag IV 12/18/20 11:30 999 mls/hr .Q1H1M CHRISTIAN Administration Discontinued Medications Generic Name Dose Route Start Last Admin Trade Name Freq PRN Reason Stop Dose Admin Diphenhydramine HCl 25 mg 12/18/20 09:23 12/18/20 09:31 Diphenhydramine 50mg/Ml Vial IV 12/18/20 09:24 25 mg ONCE ONE Administration Iopamidol 75 ml 12/18/20 10:51 12/18/20 10:52 Iopamidol-370 (76%);100ml Bottle IV 12/18/20 10:52 75 ml ONCE ONE Administration Ketorolac Tromethamine 30 mg 12/18/20 09:23 12/18/20 09:31 Ketorolac 30mg/Ml Vial IV 12/18/20 09:24 30 mg ONCE ONE Administration Sodium Chloride 10 ml 12/18/20 10:51 12/18/20 10:52 Sodium Chloride 0.9% 10ml Syr (Rad Only) IV 12/18/20 10:52 10 ml ONCE ONE Administration - CT Data CT Scan: Abdomen, Pelvis Time Received: 11:[address] Reviewed: Yes: I have reviewed the patient's CT results, I have viewed the radiologist's interpretation Findings Narrative: IMPRESSION: 1. Stable nodule partially visualized in the left breast measures 1.3 cm. 2. Stable subpleural nodules left base, larger measures 9 mm with central
[2020-12-18 09:41] LABS: Basophils # 0.1 K/mm3 (0-0.2); Basophils % 0.7 % (0.1-2.0); Eosinophils # 0.1 K/mm3 (0.0-0.4); Hematocrit 39.9 % (37.0-47.0); Hemoglobin 13.1 g/dL (12.2-16.2); Lymphocytes # 3.6 K/mm3 (0.7-4.5); Lymphocytes % 27.4 % (10-50); Mean Corpuscular HGB Conc 32.8 g/dL (31.8-35.4); Mean Corpuscular Hemoglobin 24.1 pg (27.0-31.2); Mean Corpuscular Volume 73.5 fl (81-99); Monocytes # 0.5 K/mm3 (0.1-1.0); Neutrophils # 8.7 K/mm3 (1.8-7.8); Platelet Count 403 K/mm3 (142-424); Red Blood Count 5.43 M/mm3 (4.20-5.40); Red Cell Distribution Width 14.9 % (11.5-17.5); White Blood Count 13.1 K/mm3 (4.8-10.8)
[2020-12-18 09:43] LABS: Microscopic, Urine URINE MICROSCOPIC (MICROSCOPIC)
[2020-12-18 09:44] LABS: Appearance,Urine CLEAR (Clear); Bilirubin,Urine Negative (Negative); Blood, Urine Negative (Negative); Color,Urine YELLOW (Yellow); Glucose,Urine (UA) Negative (Negative); Ketones,Urine Negative (Negative); Leukocyte Esterase,Urine Negative (Negative); Nitrate,Urine Negative (Negative); PH,Urine 7.5 (5.0-8.5); Protein,Urine TRACE (Negative); Urobilinogen,Urine 0.2 EU/dl (0.2)
[2020-12-18 09:44] LABS: Chloride 102 mmol/L (98-107); Sodium 138 mmol/L (136-145)
[2020-12-18 09:46] LABS: Urine Pregnancy, HCG Qual. Negative (Negative)
[2020-12-18 09:47] LABS: Alanine Aminotransferase 32 U/L (12-78); Albumin Level 4.1 g/dl (3.5-5.0); Albumin/Globulin Ratio 1.2 (1.1-1.8); Alkaline Phosphatase 135 U/L (38-126); Aspartate Amino Transferase 31 U/L (14-36); Bilirubin,Total 0.5 mg/dl (0.2-1.3); Blood Urea Nitrogen 12 mg/dl (7-17); Carbon Dioxide 31 mmol/L (22.0-30.0); Creatinine Clearance Estimated 160 mL/min (50-200); Estimated Glomerular Filt Rate 98 ml/min (>60); GFR (African American) 119 ML/MIN (>60); Globulin 3.4 g/dL (1.3-3.2); Glucose 93 mg/dl (74-100); Lipase 111 U/L (23-300); Total Protein,Serum 7.5 g/dl (6.3-8.2)
[2020-12-18 09:50] LABS: Bacteria,Urine 1+ /lpf; WBC,Urine Occasional #/hpf (0-3)
--- NOTE | 2020-12-18 10:17 | CT_ITS ---
PROCEDURE INFORMATION: Exam: CT Abdomen And Pelvis With Contrast Exam date and time: 12/18/2020 10:17 AM Age: 30 years old Clinical indication: Abdominal pain; Localized; Prior surgery; Patient HX: Right sided abdomen pain TECHNIQUE: Imaging protocol: Computed tomography of the abdomen and pelvis with contrast. Radiation optimization: All CT scans at this facility use at least one of these dose optimization techniques: automated exposure control; mA and/or kV adjustment per patient size (includes targeted exams where dose is matched to clinical indication); or iterative reconstruction. Contrast material: ISOVUE; Contrast volume: 75 ml; Contrast route: IV; COMPARISON: CT ABDOMEN PELVIS W CON 04/12/2019 3:08 PM FINDINGS: Liver: Normal. No mass. Gallbladder and bile ducts: Normal. No calcified stones. No ductal dilation. Pancreas: Normal. No ductal dilation. Spleen: Normal. No splenomegaly. Adrenal glands: Normal. No mass. Kidneys and ureters: Normal. No hydronephrosis. Stomach and bowel: Unremarkable. No obstruction. No mucosal thickening. Appendix: Appendix normal. Intraperitoneal space: Unremarkable. No free air. No significant fluid collection. Vasculature: Unremarkable. No abdominal aortic aneurysm. Lymph nodes: Unremarkable. No enlarged lymph nodes. Urinary bladder: Unremarkable as visualized. Reproductive: Right adnexal cyst measures 2.4 x 2.9 cm. Bones/joints: Unremarkable. No acute fracture. Soft tissues: Stable nodule partially visualized in the left breast measures 1.3 cm. Other findings: Stable subpleural nodules left base, larger measures 9 mm with central calcification. No additional workup necessary. IMPRESSION: 1. Stable nodule partially visualized in the left breast measures 1.3 cm. 2. Stable subpleural nodules left base, larger measures 9 mm with central calcification. No additional workup necessary. 3. Right adnexal cyst measures 2.4 x 2.9 cm. 4. Appendix normal.
--- NOTE | 2020-12-18 10:38 | PC.NURSE ---
Pt to CT scan via wheelchair at this time.
[2020-12-18 11:50] VITALS: BP 141/77; PULSE 70; RESP 18; TEMP 36.7; O2SAT 100
== END 2020-12-18 11:52 | disposition home or self-care (01) ==
PROVIDERS: Emergency Provider Emergency Medicine; PCP Nurse Practitioner Family
DX: R10.84 Generalized abdominal pain (principal); F41.8 Other specified anxiety disorders; E03.9 Hypothyroidism, unspecified; Z91.040 Latex allergy status
CPT/HCPCS: 74177; 80053; 81001; 81025; 83690; 85025; 96365; 96375; 99283; Q9967

== ENCOUNTER → 2021-06-14 15:59 | Outpatient (CLI) | payer MEDICAID, SELFPAY | PROVIDERS: Visit Provider Nurse Practitioner | DX: U07.1 COVID-19 (principal) | CPT/HCPCS: C9803; U0003; U0005 ==

== ENCOUNTER 2022-01-29 13:47 | Emergency (ER) | payer BC, MEDICAID, SELFPAY ==
[2022-01-29 14:52] VITALS: BP 137/75; PULSE 84; RESP 16; TEMP 36.8; O2SAT 97; BMI 41.8
--- NOTE | 2022-01-29 15:33 | EXP.UTC ---
Discharge Plan Disposition Patient Disposition: Home, Self-Care Condition: Good Prescriptions Prescriptions: New methylprednisolone 4 mg Tablets,Dose Pack 4 mg PO DIRECTED Qty: 21 0RF cefdinir 300 mg capsule 300 mg PO BID Qty: 20 0RF No Action levothyroxine 50 mcg tablet 50 mcg PO DAILY fluoxetine 40 mg capsule 40 mg PO DAILY levocetirizine 5 mg tablet 5 mg PO PM nystatin 100,000 unit/gram cream 1 applic TOPICAL TID Qty: 30 2RF nystatin 100,000 unit/gram powder 1 applic TOPICAL TID Qty: 60 1RF fluticasone propionate 50 mcg/actuation spray,suspension INTRANASAL Xulane 150-35 mcg/24 hr patch weekly 1 patch TRANSDERMA WEEKLY Qty: 3 12RF Rx Instructions: apply once weekly for 3 weeks of a 4-week cycle hydrocodone-acetaminophen 1 TAB tablet 1 tab PO Q6HP PRN (Reason: Moderate Pain) Qty: 7 0RF Referrals Follow up/Referrals: Ronna Rainey [Primary Care Provider] - See instructions Activity Restrictions/Add. Instructions Additional Instructions/Restrictions: Drink plenty of fluids. Take tylenol or ibuprofen for pain or fever. Take the medications as directed. Follow up with your regular doctor. GO TO THE ER FOR ANY WORSENING SYMPTOMS Clinical Impressions Clinical Impression: Otitis media Stand Alone Forms Stand Alone Forms: Work/School Release Instructions Patient Instructions: Middle Ear Infection Discharge ED Provider: Elijah Dale [facility] General Stated complaint: right ear pain Mode of Arrival: Ambulatory Source of Information: Patient Limitations: No Limitations Time Seen by Provider: 01/29/22 15:30 Description of Symptoms (Recalled from Triage Doc. by RN): pt comes in with c/o right ear pain that began last night, dizziness that has been ongoing for 2 weeks. HEENT Symptoms (Recalled from RN notes): Yes Resp Symptoms (Recalled from RN notes): No Skin Symptoms (Recalled from RN notes): No MS Symptoms (Recalled from RN notes): No Functional Status (Recalled from RN notes): n/a History of Present Illness Provider Complaint: She states that she has had ear pain intermittently for the past 2 weeks. She started to have dizziness at times 2 days ago. She denies other significant symptoms. Related Data Home Medications Medication Instructions Recorded Confirmed fluoxetine 40 mg capsule 40 mg PO DAILY Nausea & vomiting 11/26/19 06/29/20 levothyroxine 50 mcg tablet 50 mcg PO DAILY THYROID 11/26/19 06/29/20 levocetirizine 5 mg tablet 5 mg PO PM Allergy symptoms 02/19/20 06/29/20 fluticasone propionate 50 intranasal 06/29/20 06/29/20 mcg/actuation nasal spray,suspension Previous Rx's Medication Instructions Recorded nystatin 100,000 unit/gram topical 1 applic topical TID #30 grams 06/23/20 cream nystatin 100,000 unit/gram topical 1 applic topical TID #60 grams 06/23/20 powder norelgestromin 150 mcg-e.estradiol 1 patch transdermal WEEKLY #3 ea 08/03/20 35 mcg/24 hr weekly transderm patch (Xulane) hydrocodone 5 mg-acetaminophen 325 1 tab PO Q6HP PRN Moderate Pain #7 12/18/20 mg tablet tabs cefdinir 300 mg capsule 300 mg PO BID #20 caps 01/29/22 methylprednisolone 4 mg tablets in 4 mg PO DIRECTED #21 tabs 01/29/22 a dose pack Allergies Allergy/AdvReac Type Severity Reaction Status Date / Time azithromycin [AZITHROMYCIN] Allergy Mild Verified 01/29/22 14:55 latex [LATEX] Allergy Mild Verified 01/29/22 14:55 Worker's Comp Is this a Worker's Comp case?: No PFSH PFSH Social History Smoking Status: Never smoker alcohol intake: never substance use type: denies use current occupational status: employed Travel in the last 8 weeks: None housing: house ROS Obtained: Yes All systems reviewed & no additional complaints except as documented Constitutional Constitutional: Denies chills, Reports fever(s) and Reports poor appetite
[2022-01-29 15:38] VITALS: BP 137/75; PULSE 84; RESP 16; TEMP 36.8
== END 2022-01-29 15:43 | disposition home or self-care (01) ==
PROVIDERS: Emergency Provider Nurse Practitioner Family; PCP Nurse Practitioner Family
DX: H66.91 Otitis media, unspecified, right ear (principal)
CPT/HCPCS: 99212; G0463

== ENCOUNTER → 2022-10-31 09:10 | Outpatient (CLI) | payer BC, MEDICAID, SELFPAY ==
[2022-10-31 11:15] LABS: Triiodothryronine (T3) Uptake 32 % (23.5-40.5)
[2022-11-01 09:19] LABS: Estradiol 82.5 pg/mL (.); LH 18.5 mIU/mL (.)
[2022-11-01 10:45] LABS: FSH 7.5 mIU/mL (.)
[2022-11-01 12:33] LABS: Free Thyroxine Index 2.4 ug/dL (5.93-13.13)
[2022-11-01 12:34] LABS: T4 (Thyroxine) 7.6 ug/dl (5.53-11.0)
== END ==
PROVIDERS: PCP Family Medicine; Visit Provider Nurse Practitioner Obstetrics & Gynecology
DX: N92.6 Irregular menstruation, unspecified (principal)
CPT/HCPCS: 36415; 82670; 83001; 83002; 84436; 84443; 84479

== ENCOUNTER 2022-11-15 16:41 | Emergency (ER) | payer BC, MEDICAID, OTHER, SELFPAY ==
[2022-11-15 16:42] VITALS: BP 162/99; PULSE 87; RESP 16; TEMP 37.1; O2SAT 100; BMI 39.4
[2022-11-15 16:51] VITALS: BMI 39.4
--- NOTE | 2022-11-15 16:52 | XR_ITS ---
PROCEDURE INFORMATION: Exam: XR Left Ankle Exam date and time: 11/15/2022 4:51 PM Age: 32 years old Clinical indication: Injury or trauma; Fall; Blunt trauma; Ankle; Left TECHNIQUE: Imaging protocol: Radiologic exam of the left ankle. Views: 3 or more views. AP, lateral and oblique views are received. COMPARISON: CR XR KNEE LT 3V 07/22/2020 11:29 AM FINDINGS: Bones/joints: No acute fracture or dislocation. Rounded contour of the posterior process of the talus appears developmental.There are no lytic skeletal lesions seen. No significant arthritic deformities at the ankle joint. Question small ankle joint effusion, suboptimally imaged, lateral view is slightly rotated at the ankle. Soft tissues: Slight soft tissue swelling. No radiopaque foreign bodies. No pathologic soft tissue calcification. IMPRESSION: 1. No acute fracture or dislocation. 2. Soft tissue swelling.
--- NOTE | 2022-11-15 16:52 | XR_ITS ---
PROCEDURE INFORMATION: Exam: XR Left Knee Exam date and time: 11/15/2022 4:53 PM Age: 32 years old Clinical indication: Injury or trauma; Fall; Blunt trauma; Knee; Left TECHNIQUE: Imaging protocol: Radiologic exam of the left knee. Views: 3 views. AP, oblique and lateral views are received. COMPARISON: CR XR KNEE LT 3V 07/22/2020 11:29 AM FINDINGS: Bones/joints: There is prominent narrowing of the lateral tibiofemoral joint space suggesting underlying chondromalacia. No significant bony arthritic deformities at the knee or patellofemoral joint. No significant knee joint effusion visible.There are no lytic skeletal lesions seen.No acute fracture or dislocation. Soft tissues: No radiopaque foreign bodies. No pathologic soft tissue calcification.No acute findings. IMPRESSION: 1. Narrowed lateral knee joint space suggesting underlying chondromalacia. 2. No acute fracture or dislocation.
--- NOTE | 2022-11-15 16:52 | XR_ITS ---
PROCEDURE INFORMATION: Exam: XR Left Tibia and Fibula Exam date and time: 11/15/2022 4:54 PM Age: 32 years old Clinical indication: Injury or trauma; Fall; Blunt trauma; Lower leg; Left TECHNIQUE: Imaging protocol: Radiologic exam of the left tibia and fibula. Views: 2 views. AP and lateral views, 4 images are received. COMPARISON: CR Ankle L 11/15/2022 4:51 PM FINDINGS: Bones/joints: No acute fracture or dislocation. The tibia and fibula appear intact and normally aligned with no lytic lesions or arthritic deformities. Soft tissues: Slight soft tissue swelling.No radiopaque foreign bodies. No pathologic soft tissue calcification. IMPRESSION: No acute fracture or dislocation.
--- NOTE | 2022-11-15 16:59 | PC.NURSE ---
pt to radiology
--- NOTE | 2022-11-15 17:58 | HMH.EDLOEX ---
Discharge Plan Disposition Patient Disposition: Home, Self-Care Prescriptions Prescriptions: New naproxen 375 mg tablet 375 mg PO BID Qty: 20 0RF No Action sumatriptan succinate 50 mg tablet 50 mg PO ONCE PRN (Reason: migraine headache) Label Comments: TAKE 1 TABLET AT START OF HEADACHE. MAY TAKE ANOTHER TABLET IN 2 HOURS IF NEEDED. DO NOT TAKE MORE THAN 4 TABLETS IN 24 HOURS. fluoxetine 20 mg capsule 20 mg PO DAILY 30 Days Qty: 30 2RF levocetirizine 5 mg tablet 5 mg PO PM 30 Days Qty: 30 5RF phentermine [Adipex-P] 37.5 mg tablet 37.5 mg PO DAILY Qty: 30 0RF Rx Instructions: must administer 30 minutes before or 1-2 hours after breakfast norgestimate-ethinyl estradiol [Sprintec (28)] 0.25-35 mg-mcg tablet 1 tab PO DAILY Qty: 84 4RF Referrals Follow up/Referrals: Rick Kim MD [Primary Care Provider] - See instructions Clinical Impressions Clinical Impression: Injury of leg, left, superficial Instructions Patient Instructions: DI for Minor Laceration Discharge ED Provider: Myron Gallegos Lower Extremity Injury HPI General Chief Complaint: Extremity Injury, Lower Stated Complaint: WC11/15 fall LT leg inj Time Seen by Provider: 11/15/22 17:00 Mode of Arrival: Wheelchair Source of Information: Patient Limitations: No Limitations Description of Symptoms (Recalled from ER Triage Doc. by RN): pt to ED with left hip pain after a fall earlier today. pt reports her right ankle gave out earlier causing her to fall on her left side. pt has abrasions to her left knee and reports her left leg feels like jello and intermitten pins and needles senation down her leg since the fall History of Present Illness HPI Narrative: 32-year-old white female got to the side of the road was walking and twisted her ankle fell striking her left knee. The patient is allergic to azithromycin and latex. Her past medical history positive for gastroenteritis TMJ weight gain Related Data Home Medications Medication Instructions Recorded Confirmed sumatriptan succinate 50 mg tablet 50 mg PO ONCE PRN migraine headache 03/14/22 11/12/22 Previous Rx's Medication Instructions Recorded fluoxetine 20 mg capsule 20 mg PO DAILY 30 days #30 caps 04/09/22 levocetirizine 5 mg tablet 5 mg PO PM Allergy symptoms 30 04/09/22 days #30 tabs norgestimate 0.25 mg-ethinyl 1 tab PO DAILY #84 tabs 10/31/22 estradiol 35 mcg tablet (Sprintec (28)) phentermine 37.5 mg tablet 37.5 mg PO DAILY #30 tabs 10/31/22 (Adipex-P) naproxen 375 mg tablet 375 mg PO BID #20 tabs 11/15/22 Allergies Allergy/AdvReac Type Severity Reaction Status Date / Time azithromycin [AZITHROMYCIN] Allergy Mild Verified 11/12/22 09:56 latex [LATEX] Allergy Mild Verified 11/12/22 09:56 [facility] Disclaimer: The information contained in this section may have been updated after the patient was seen, as this information can be updated by other users. 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 Anxiety Depression Dizziness of unknown cause Gestational diabetes Hypothyroidism Seasonal allergies TMJ (temporomandibular joint syndrome) Surgical History History of History of tubal ligation Family History Mother Hypertension Thyroid disorder Father Hypertension Social History Smoking Status: Never smoker alcohol intake: never substance use type: denies use current occupational status: employed Travel in the last 8 weeks: None housing: house ROS Obtained: Yes Systems reviewed as appropriate & no additional complaints except as documented Physical Exam General General appearance: alert and in distress (Mild) Head Head exam: atraumatic and normocephalic Respiratory Respiratory exam: Present no
[2022-11-15 18:10] VITALS: BP 146/90; PULSE 70; RESP 17; TEMP 36.9; O2SAT 98
--- NOTE | 2022-11-15 18:10 | PC.NURSE ---
KNEE CLEANED AND BACITRACIN APPLIED
== END 2022-11-15 18:17 | disposition home or self-care (01) ==
PROVIDERS: Emergency Provider Emergency Medicine; PCP Family Medicine
DX: S80.922A Unspecified superficial injury of left lower leg, initial encounter (principal); E03.9 Hypothyroidism, unspecified; F41.9 Anxiety disorder, unspecified; F32.A Depression, unspecified; X50.1XXA Overexertion from prolonged static or awkward postures, initial encounter
CPT/HCPCS: 73560; 73590; 73600; 96372; 99283; 99284

== ENCOUNTER → 2023-01-09 16:03 | Outpatient (POV) | payer BC, MEDICAID, SELFPAY | PROVIDERS: Visit Provider Specialist/Technologist | DX: Z00.00 Encounter for general adult medical examination without abnormal findings (principal) ==

== ENCOUNTER → 2023-01-24 16:27 | Outpatient (CLI) | payer BC, MEDICAID, SELFPAY ==
--- NOTE | 2023-01-24 17:01 | MR_ITS ---
PROCEDURE INFORMATION: Exam: MRA Neck Without Contrast Exam date and time: 01/24/2023 4:57 PM Age: 32 years old Clinical indication: Pain; Headache; Additional info: Eval posterior circulation TECHNIQUE: Imaging protocol: Magnetic resonance angiography of the neck without contrast. Mfwb-[id number]-[id number] (TOF) technique was utilized for this exam. COMPARISON: No relevant prior studies available. FINDINGS: Right common carotid artery: No stenosis. No dissection or occlusion. Right internal carotid artery: No stenosis of the extracranial segment. No dissection or occlusion. Right external carotid artery: No stenosis. No dissection or occlusion of the origin. Right vertebral artery: No stenosis. No dissection or occlusion. Left common carotid artery: No stenosis. No dissection or occlusion. Left internal carotid artery: No stenosis of the extracranial segment. No dissection or occlusion. Left external carotid artery: No stenosis. No dissection or occlusion of the origin. Left vertebral artery: No stenosis. No dissection or occlusion. IMPRESSION: No stenosis. No evidence of acute dissection. REFERENCES: NASCET CRITERIA. The degree of stenosis in the cervical segment of the internal carotid artery is based on NASCET criteria. Normal is no stenosis. Mild is less than 50% stenosis. Moderate is 50-69% stenosis. Severe is 70% to 99% stenosis. Total occlusion is no detectable patent lumen.
--- NOTE | 2023-01-24 17:01 | MR_ITS ---
PROCEDURE INFORMATION: Exam: MRA Head Without Contrast; Arteriography Exam date and time: 01/24/2023 4:57 PM Age: 32 years old Clinical indication: Pain; Headache; Additional info: Eval posterior circulation TECHNIQUE: Imaging protocol: Magnetic resonance angiography head without contrast. Qaju-[id number]-[id number] (TOF) technique was utilized for this exam. Exam focused on the arteries. COMPARISON: No relevant prior studies available. FINDINGS: ANTERIOR CIRCULATION: Right internal carotid artery: Intracranial segment is patent with no significant stenosis. No aneurysm. Right middle cerebral artery: No occlusion or significant stenosis. No aneurysm. Right anterior cerebral artery: No occlusion or significant stenosis. No aneurysm. Left internal carotid artery: Intracranial segment is patent with no significant stenosis. No aneurysm. Left middle cerebral artery: No occlusion or significant stenosis. No aneurysm. Left anterior cerebral artery: No occlusion or significant stenosis. No aneurysm. POSTERIOR CIRCULATION: Right vertebral artery: No occlusion or significant stenosis. No aneurysm. Left vertebral artery: No occlusion or significant stenosis. No aneurysm. Basilar artery: No occlusion or significant stenosis. No aneurysm. Right posterior cerebral artery: No occlusion or significant stenosis. No aneurysm. Left posterior cerebral artery: No occlusion or significant stenosis. No aneurysm. IMPRESSION: No significant stenosis or aneurysm.
[2023-01-24 17:35] LABS: Basophils # 0.1 K/mm3 (0-0.2); Basophils % 0.6 % (0.1-2.0); Eosinophils # 0.1 K/mm3 (0.0-0.4); Eosinophils % 1.2 % (0.1-12.0); Hematocrit 40.3 % (37.0-47.0); Hemoglobin 13.1 g/dL (12.2-16.2); Lymphocytes # 4.3 K/mm3 (0.7-4.5); Lymphocytes % 37.9 % (10-50); Mean Corpuscular HGB Conc 32.5 g/dL (31.8-35.4); Mean Corpuscular Hemoglobin 25.1 pg (27.0-31.2); Mean Platelet Volume 7.6 fl (7.4-10.4); Monocytes # 0.5 K/mm3 (0.1-1.0); Monocytes % 4.6 % (1.7-9.3); Neutrophils # 6.3 K/mm3 (1.8-7.8); Neutrophils % 55.7 % (37.0-80.0); Platelet Count 396 K/mm3 (142-424); Red Blood Count 5.23 M/mm3 (4.20-5.40); Red Cell Distribution Width 13.8 % (11.5-17.5); White Blood Count 11.3 K/mm3 (4.8-10.8)
[2023-01-24 18:01] LABS: Chloride 109 mmol/L (98-107); Sodium 141 mmol/L (136-145)
[2023-01-24 18:04] LABS: Alanine Aminotransferase 21 U/L (12-78); Albumin Level 3.4 g/dl (3.5-5.0); Albumin/Globulin Ratio 1.1 (1.1-1.8); Alkaline Phosphatase 85 U/L (38-126); Aspartate Amino Transferase 25 U/L (14-36); Blood Urea Nitrogen 12 mg/dl (7-17); Calcium 9.3 mg/dl (8.4-10.2); Carbon Dioxide 23 mmol/L (22.0-30.0); Estimated Glomerular Filt Rate 73 ml/min (>60); GFR (African American) 88 ML/MIN (>60); Globulin 3.2 g/dL (1.3-3.2); Glucose 91 mg/dl (74-100); Total Protein,Serum 6.6 g/dl (6.3-8.2)
[2023-01-24 18:10] LABS: C-Reactive Protein 11.6 mg/L (0-4)
[2023-01-24 18:16] LABS: Bilirubin,Total 0.1 mg/dl (0.2-1.3)
[2023-01-24 19:43] LABS: Erythrocyte Sedimentation Rate 22 mm/hr (0-20)
[2023-01-24 22:22] LABS: Vitamin B12 239 pg/mL (239-931)
[2023-01-26 11:50] LABS: Rapid Plasma Reagin Ab Titer Non Reactive (NonRea<1:1)
[2023-01-30 09:12] LABS: Antinuclear Antibodies (ANA) Negative
== END ==
PROVIDERS: PCP Family Medicine; Visit Provider Nurse Practitioner Family
DX: R42 Dizziness and giddiness (principal); R51.9 Headache, unspecified; H91.90 Unspecified hearing loss, unspecified ear; H92.02 Otalgia, left ear; R53.83 Other fatigue; R06.83 Snoring; E66.01 Morbid (severe) obesity due to excess calories; Z68.39 Body mass index [BMI] 39.0-39.9, adult; Z86.69 Personal history of other diseases of the nervous system and sense organs
CPT/HCPCS: 36415; 70544; 70547; 80053; 82607; 82746; 85025; 85651; 86038; 86140; 86225; 86235; 86593

== ENCOUNTER → 2023-02-05 16:01 | Outpatient (CLI) | payer BC, MEDICAID, SELFPAY ==
--- NOTE | 2023-02-05 16:01 | MR_ITS ---
PROCEDURE INFORMATION: Exam: MR Head Without and With Contrast Exam date and time: 02/05/2023 4:00 PM Age: 32 years old Clinical indication: Pain; Headache; Patient HX: Special attention 8th cn, posterior fossa; Additional info: Worsening headache TECHNIQUE: Imaging protocol: Magnetic resonance imaging of the head without and with contrast. Contrast material: ISOVUE; Contrast volume: 19 ml; Contrast route: IV; COMPARISON: No relevant prior studies available. FINDINGS: Brain parenchyma demonstrates normal signal intensity and enhancement without an intra- or extra-axial mass or abnormality. No mass effect or midline shift. No evidence of restricted diffusion in the supra-or infratentorial brain. . Midline brain structures including the corpus callosum, pituitary gland, pineal region, and craniovertebral junction are unremarkable. Ventricles and sulci are normal without evidence of hydrocephalus. Intracranial vessels demonstrate a normal flow-void. IMPRESSION: 1. Normal study without acute hemorrhagic or ischemic infarct. 2. No evidence of supra-, infratentorial mass or abnormality.
== END ==
LOC: RAD 16:01
PROVIDERS: PCP Family Medicine; Visit Provider Nurse Practitioner Family
DX: R51.9 Headache, unspecified (principal); R42 Dizziness and giddiness; R53.83 Other fatigue; R06.83 Snoring; Z86.69 Personal history of other diseases of the nervous system and sense organs
CPT/HCPCS: 70553; A9576

== ENCOUNTER → 2023-02-18 16:49 | Outpatient (CLI) | payer OTHER, SELFPAY ==
--- NOTE | 2023-02-18 16:53 | MR_ITS ---
PROCEDURE INFORMATION: Exam: MR Left Lower Extremity Joint Without Contrast, Knee Exam date and time: 02/18/2023 4:48 PM Age: 32 years old Clinical indication: Pain; Knee; Left; Additional info: Left knee pain. Fell 3 months ago. [place] a pop in knee 2 months ago. Pain when applying pressure to patella. Lateral sided knee pain TECHNIQUE: Imaging protocol: Magnetic resonance imaging of the left lower extremity joint without contrast. Exam focused on the knee. COMPARISON: CR XR KNEE LT 2V 11/15/2022 4:53 PM FINDINGS: Bones/joints: No fracture or suspicious marrow signal. Good preservation of articular cartilage in all 3 joint spaces. There is a tiny focal fissure in the articular cartilage lateral facet of the patella. Medial meniscus: No internal derangement. Lateral meniscus: Unremarkable. No tear. Anterior cruciate ligament: Unremarkable. No tear. Posterior cruciate ligament: Unremarkable. No tear. Medial capsule and supporting structures: Unremarkable. No tear. Lateral capsule and supporting structures: Unremarkable. No tear. Extensor mechanism of knee: Unremarkable. No tear. Soft tissues: Unremarkable. IMPRESSION: 1. No fracture or suspicious marrow signal. 2. No internal derangement. 3. Good preservation of articular cartilage in all 3 joint spaces. There is a tiny focal fissure in the articular cartilage lateral facet of the patella.
== END ==
PROVIDERS: PCP Family Medicine; Visit Provider Orthopaedic Surgery
DX: M25.562 Pain in left knee (principal)
CPT/HCPCS: 73721

== ENCOUNTER → 2023-03-07 09:04 | Outpatient (CLI) | payer BC, MEDICAID, SELFPAY ==
[2023-03-07 10:09] LABS: Basophils # 0.1 K/mm3 (0-0.2); Basophils % 0.5 % (0.1-2.0); Eosinophils # 0.1 K/mm3 (0.0-0.4); Eosinophils % 1.3 % (0.1-12.0); Hemoglobin 13.7 g/dL (12.2-16.2); Lymphocytes # 2.8 K/mm3 (0.7-4.5); Lymphocytes % 28.7 % (10-50); Mean Corpuscular HGB Conc 33.5 g/dL (31.8-35.4); Mean Corpuscular Hemoglobin 26.5 pg (27.0-31.2); Mean Platelet Volume 7.5 fl (7.4-10.4); Monocytes # 0.4 K/mm3 (0.1-1.0); Neutrophils # 6.5 K/mm3 (1.8-7.8); Neutrophils % 65.5 % (37.0-80.0); Platelet Count 329 K/mm3 (142-424); Red Blood Count 5.19 M/mm3 (4.20-5.40); Red Cell Distribution Width 13.6 % (11.5-17.5); White Blood Count 9.9 K/mm3 (4.8-10.8)
[2023-03-07 11:05] LABS: Ferritin 18.3 ng/ml (6.24-137)
[2023-03-07 18:14] LABS: Iron 74 ug/dL (37-170)
[2023-03-07 18:29] LABS: Total Iron Binding Capacity 385 ug/dL (265-497)
[2023-03-09 09:36] LABS: Peripheral Smear Review Scanned Result
== END ==
PROVIDERS: PCP Family Medicine; Visit Provider Internal Medicine Medical Oncology
DX: R51.9 Headache, unspecified (principal); R53.83 Other fatigue; R42 Dizziness and giddiness; R06.83 Snoring; Z86.69 Personal history of other diseases of the nervous system and sense organs; E66.01 Morbid (severe) obesity due to excess calories; Z68.39 Body mass index [BMI] 39.0-39.9, adult
CPT/HCPCS: 36415; 82728; 83540; 83550; 85025

== ENCOUNTER → 2023-04-08 19:37 | Outpatient (CLI) | payer BC, MEDICAID, SELFPAY | PROVIDERS: PCP Nurse Practitioner Family; Visit Provider Nurse Practitioner Family | DX: J02.9 Acute pharyngitis, unspecified (principal) | CPT/HCPCS: 87635 ==

== ENCOUNTER 2023-08-15 09:56 | Emergency (ER) | payer BC, SELFPAY ==
[2023-08-15 10:35] VITALS: BP 127/77; PULSE 84; RESP 18; TEMP 36.7; O2SAT 99; BMI 34.2
--- NOTE | 2023-08-15 11:04 | ED_ITS ---
Discharge Plan Disposition Patient Disposition: Home, Self-Care Condition: Good Prescriptions Prescriptions: No Action buspirone 7.5 mg tablet 7.5 mg PO ONCE fluoxetine [Prozac] 40 mg capsule 40 mg PO DAILY Qty: 30 2RF omeprazole 20 mg capsule,delayed release(DR/EC) 20 mg PO DAILY Patient Comments: Take 1 capsule every day by oral route for 60 days. levocetirizine 5 mg tablet See Rx Instructions .ROUTE .COMPLEX Qty: 30 5RF Dose Instruction: TAKE 1 TABLET 1 TIME EACH DAY IN THE EVENING FOR FOR ALLERGY SYMPTOMS Rx Instructions: TAKE 1 TABLET 1 TIME EACH DAY IN THE EVENING FOR FOR ALLERGY SYMPTOMS Nurtec ODT 75 mg tablet,disintegrating 75 mg PO Q OTHER DAY PRN (Reason: migraine headache) Qty: 8 5RF Rx Instructions: 1 tablet per day, by mouth, as needed. Max 1 tab per 24 hours. Emgality Pen 120 mg/mL pen injector 120 mg SQ QMONTH Qty: 1 2RF rizatriptan 10 mg tablet 10 mg PO DAILY Patient Comments: Take 1 tablet every day by oral route as needed for Migraine. Referrals Follow up/Referrals: Ronna Rainey [Primary Care Provider] - See instructions Activity Restrictions/Add. Instructions Additional Instructions/Restrictions: Go home lay down and try to sleep off remaining of Migraine headache Follow up with your Family Doctor if migraines continue Follow up with Neurology if migraines continue Straight to ER if any life threatening symptoms Clinical Impressions Clinical Impression: Migraine Stand Alone Forms Stand Alone Forms: Work/School Release Instructions Patient Instructions: DI for Migraine, Migraine -- Adult Discharge ED Provider: Sayda Isaacs [facility] General Stated complaint: migraine Mode of Arrival: Ambulatory Source of Information: Patient Limitations: No Limitations Time Seen by Provider: 08/15/23 11:04 Description of Symptoms (Recalled from Triage Doc. by RN): PATIENT C/O HEADACHE THAT STARTED THIS MORNING HEENT Symptoms (Recalled from RN notes): Yes Resp Symptoms (Recalled from RN notes): No Skin Symptoms (Recalled from RN notes): No MS Symptoms (Recalled from RN notes): No Functional Status (Recalled from RN notes): WNL History of Present Illness Provider Complaint: Patient states that she has a hx of migraine headaches that she sees Neurology for States that she recently stopped the Topamax she took for Migraines and is suppose to start her new medication on Saturday but woke up this morning with migraine headache like she normally has States that she took her Nurtec but it hasnt helped so she came in to get something to help knock the migraine Related Data Home Medications Medication Instructions Recorded Confirmed buspirone 7.5 mg tablet 7.5 mg PO ONCE 07/24/23 08/15/23 omeprazole 20 mg capsule,delayed 20 mg PO DAILY 08/08/23 08/15/23 release rizatriptan 10 mg tablet 10 mg PO DAILY 08/15/23 08/15/23 Previous Rx's Medication Instructions Recorded levocetirizine 5 mg tablet See Rx Instructions .Route 01/10/23 .COMPLEX #30 tabs rimegepant 75 mg disintegrating 75 mg PO Q OTHER DAY PRN migraine 03/18/23 tablet (Nurtec ODT) headache #8 tabs fluoxetine 40 mg capsule (Prozac) 40 mg PO DAILY #30 caps 04/08/23 galcanezumab-gnlm 120 mg/mL 120 mg SQ QMONTH Migraine Headache 08/02/23 subcutaneous pen injector #1 mL (Emgality Pen) Allergies Allergy/AdvReac Type Severity Reaction Status Date / Time azithromycin [AZITHROMYCIN] Allergy Mild Verified 08/08/23 15:45 latex [LATEX] Allergy Mild Verified 08/08/23 15:45 Worker's Comp Is this a Worker's Comp case?: No [facility] Disclaimer: The information contained in this section may have been updated after the patient was seen, as this information can be updated by other users. 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 Dizziness of unknown cause TMJ (temporomandibular joint syndrome) Hypothyroidism Depression Anxiety Gestational diabetes Seasonal allergies Surgical History History of tubal ligation History of Family History Mother Hypertension Thyroid disorder Father Hypertension Social History Smoking Status: Never smoker alcohol intake: never substance use type: denies use current occupational status: employed Travel in the last 8 weeks: None housing: house ROS Obtained: Yes All systems reviewed & no additional complaints except as documented and Yes Systems reviewed as appropriate & no additional complaints except as documented Constitutional Constitutional: Reports system reviewed and no additional complaints, except as documented, Reports as per HPI and Reports headache(s) Eyes Eyes: Reports system reviewed and no additional complaints, except as documented, Reports as per HPI, Denies blurry vision, Denies loss of vision, Denies eye pain, Reports photophobia, Denies seeing flashes and Denies tunnel vision ENT Ears, Nose, Mouth, and Throat: Reports system reviewed and no additional complaints, except as documented, Reports as per HPI and Reports headache(s) Cardiovascular Cardiovascular: Reports system reviewed and no additional complaints, except as documented and Reports as per HPI Respiratory Respiratory: Reports system reviewed and no additional complaints, except as documented and Reports as per HPI Gastrointestinal Gastrointestingal: Reports system reviewed and no additional complaints, except as documented, as per HPI and nausea Genitourinary Female Genitourinary: Reports system reviewed and no additional complaints, except as documented and Reports as per HPI Neurologic Neurologic: Reports headache(s) and Denies loss of vision Physical Exam General General appearance: alert and in no apparent distress Eye Eye exam: Present normal appearance, PERRL and EOMI Chest Chest inspection: Present normal inspection and symmetric chest wall rise Respiratory Respiratory exam: Present normal lung sounds bilaterally; Absent respiratory distress or wheezes Cardiovascular Cardiovascular exam: Present regular rate, normal rhythm and normal heart sounds Neurological Exam Neurological exam: Present alert, oriented X3 and normal gait Medical Decision Making Burton Inquiry Pt receiving controlled substance: No Burton was queried for this patient: No Vital Signs: 08/15/23 10:35 Temperature 98.1 F Temperature Source Oral Pulse Rate [Left Brachial] 84 Respiratory Rate 18 Blood Pressure [Left Arm] 127/77 Blood Pressure Mean [Left Arm] 93 Blood Pressure Source [Left Arm] Automatic Cuff Blood Pressure Position [Left Arm] Sitting 02 Sat by Pulse Oximetry 99 Oxygen Delivery Method Room Air Medical Decision Narrative: Patient denies states that she had her Tubes removed, states that she thinks she has taken migraine cocktail before of Toradol and benadryl Medication discussed with pharmacy will give Toradol, benadryl and zofran and reassess for diminishing of pain from migraine Patient states that migraine is starting to ease up patient dc home
[2023-08-15 11:18] VITALS: BP 127/77; PULSE 84; RESP 18; TEMP 36.7; O2SAT 99
[2023-08-15] MEDS: KETOROLAC 60MG/2ML VIAL 60 MG IM (11:18)
[2023-08-15] MEDS: ONDANSETRON 4MG ODT 4 MG SL (11:18)
[2023-08-15] MEDS: diphenhydrAMINE 50MG/ML VIAL 25 MG IM (11:18)
== END 2023-08-15 11:50 | disposition home or self-care (01) ==
PROVIDERS: Emergency Provider Nurse Practitioner; PCP Nurse Practitioner Family
DX: G43.909 Migraine, unspecified, not intractable, without status migrainosus (principal); E03.9 Hypothyroidism, unspecified
CPT/HCPCS: 96372; 99212; 99214; G0463

== ENCOUNTER 2023-09-05 16:42 | Emergency (ER) | payer BC, SELFPAY ==
[2023-09-05 16:50] VITALS: BP 130/96; PULSE 85; RESP 20; TEMP 36.8; O2SAT 97; BMI 36.7
--- NOTE | 2023-09-05 16:53 | EXP.UTC ---
Discharge Plan Disposition Patient Disposition: Home, Self-Care Condition: Good Prescriptions Prescriptions: New triamcinolone acetonide 0.1 % cream 1 applic topical BID PRN (Reason: itching) Qty: 30 0RF No Action buspirone 7.5 mg tablet 7.5 mg PO ONCE prednisone 10 mg tablets,dose pack See Rx Instructions PO PER PKG DIR Qty: 21 0RF Rx Instructions: PO PER PKG DIR fluoxetine [Prozac] 40 mg capsule 40 mg PO DAILY Qty: 30 2RF omeprazole 20 mg capsule,delayed release(DR/EC) 20 mg PO DAILY Patient Comments: Take 1 capsule every day by oral route for 60 days. levocetirizine 5 mg tablet See Rx Instructions .ROUTE .COMPLEX Qty: 30 5RF Dose Instruction: TAKE 1 TABLET 1 TIME EACH DAY IN THE EVENING FOR FOR ALLERGY SYMPTOMS Rx Instructions: TAKE 1 TABLET 1 TIME EACH DAY IN THE EVENING FOR FOR ALLERGY SYMPTOMS Emgality Pen 120 mg/mL pen injector 120 mg SQ QMONTH Qty: 1 2RF Ubrelvy 100 mg tablet 100 mg PO ONCE PRN (Reason: migraine headache) Qty: 10 5RF Referrals Follow up/Referrals: Ronna Rainey [Primary Care Provider] - See instructions Activity Restrictions/Add. Instructions Additional Instructions/Restrictions: Don't put the topical steroids (triamcinolone) on your face or your groin. Follow up with your regular doctor. GO TO THE ER FOR ANY WORSENING SYMPTOMS OR CONCERNS Clinical Impressions Clinical Impression: Insect bite Instructions Patient Instructions: DI for Insect Bites and Stings, Triamcinolone Topical Discharge ED Provider: Elijah Dale [facility] HPI General Stated complaint: poss bug bite Time Seen by Provider: 09/05/23 16:51 History of Present Illness Provider Complaint: She states that she has 2 bug bites on on her forearms. She states they have been present for 2 days. She was instructed by her boss to come to the [facility] to make sure the the places were not ringworm. She denies any other skin lesions or any other complaints. Related Data Home Medications Medication Instructions Recorded Confirmed buspirone 7.5 mg tablet 7.5 mg PO ONCE 07/24/23 09/04/23 omeprazole 20 mg capsule,delayed 20 mg PO DAILY 08/08/23 09/04/23 release Previous Rx's Medication Instructions Recorded levocetirizine 5 mg tablet See Rx Instructions .Route 01/10/23 .COMPLEX #30 tabs fluoxetine 40 mg capsule (Prozac) 40 mg PO DAILY #30 caps 04/08/23 galcanezumab-gnlm 120 mg/mL 120 mg SQ QMONTH Migraine Headache 08/02/23 subcutaneous pen injector #1 mL (Emgality Pen) ubrogepant 100 mg tablet (Ubrelvy) 100 mg PO ONCE PRN migraine 08/28/23 headache #10 tabs prednisone 10 mg tablets in a dose See Rx Instructions PO PER PKG DIR 09/04/23 pack #21 tabs triamcinolone acetonide 0.1 % 1 applic topical BID PRN itching 09/05/23 topical cream #30 grams Allergies Allergy/AdvReac Type Severity Reaction Status Date / Time azithromycin [AZITHROMYCIN] Allergy Mild Verified 09/04/23 14:53 latex [LATEX] Allergy Mild Verified 09/04/23 14:53 [facility] Disclaimer: The information contained in this section may have been updated after the patient was seen, as this information can be updated by other users. 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 Dizziness of unknown cause TMJ (temporomandibular joint syndrome) Hypothyroidism Depression Anxiety Gestational diabetes Seasonal allergies Surgical History History of tubal ligation History of Family History Mother Hypertension Thyroid disorder Father Hypertension Social History Smoking Status: Never smoker alcohol intake: never substance use type: denies use current occupational status: employed Travel in the last 8 weeks: None housing: house ROS Obtained: Yes All systems reviewed & no additional complaints except as documented Constitutional Constitutional: Denies chills and Denies fever(s) Eyes Eyes: Denies eye discharge ENT Ears, Nose, Mouth, and Throat: Denies dizziness, Denies otalgia and Denies sore throat Cardiovascular Cardiovascular: Denies chest pain Respiratory Respiratory: Denies shortness of breath, Denies chest congestion, Denies cough, Denies stridor and Denies wheezing Gastrointestinal Gastrointestingal: Denies nausea or vomiting Musculoskeletal Musculoskeletal: Reports system reviewed and no additional complaints, except as documented and Denies arthralgias Integumentary/Breasts Skin/Breast: Reports as per HPI and Reports redness Neurologic Neurologic: Denies dizziness and Denies paresthesias Allergic/Immunologic Allergic/Immunologic: Denies wheezing Physical Exam General General appearance: alert and in no apparent distress Head Head exam: atraumatic, normocephalic and normal inspection Eye Eye exam: Present normal appearance, PERRL and EOMI ENT ENT exam: Present normal exam, normal oropharynx, mucous membranes moist, TM's normal bilaterally and normal external ear exam Neck Neck exam: Present normal inspection, full ROM and trachea midline; Absent meningismus or lymphadenopathy Chest Chest inspection: Present normal inspection and symmetric chest wall rise; Absent tenderness Respiratory Respiratory exam: Present normal lung sounds bilaterally; Absent respiratory distress Cardiovascular Cardiovascular exam: Present regular rate and normal rhythm; Absent JVD Abdominal Exam Abdominal exam: Present soft and normal bowel sounds; Absent distention, tenderness or guarding Extremities Exam Extremities exam: Present normal inspection, full ROM and normal capillary refill; Absent calf tenderness Back Exam Back exam: Present normal inspection; Absent tenderness Neurological Exam Neurological exam: Present alert and oriented X3 Psychiatric Psychiatric exam: Present normal affect and normal mood Skin Skin exam: Present erythema (she has an area of redness on her right forearm and her left forearm that both measure 2 cm diameter, no central clearing, no induration, no open wounds or drainage. ) Lymphatic Lymphatic Findings: no adenopathy Medical Decision Making Medical Records Medical records reviewed: No I reviewed the patient's medical records. Burton Inquiry Pt receiving controlled substance: No
[2023-09-05 17:10] VITALS: BP 130/96; PULSE 85; RESP 20; TEMP 36.8; O2SAT 97
== END 2023-09-05 17:13 | disposition home or self-care (01) ==
PROVIDERS: Emergency Provider Nurse Practitioner Family; PCP Nurse Practitioner Family
DX: S50.861A Insect bite (nonvenomous) of right forearm, initial encounter (principal); S50.862A Insect bite (nonvenomous) of left forearm, initial encounter; W57.XXXA Bitten or stung by nonvenomous insect and other nonvenomous arthropods, initial encounter; E03.9 Hypothyroidism, unspecified
CPT/HCPCS: 99212; 99214; G0463

== ENCOUNTER 2023-12-20 07:06 | Outpatient (CLI) | payer MEDICAID, SELFPAY ==
--- NOTE | 2023-12-20 07:11 | US_ITS ---
FINAL REPORT TECHNIQUE: Multiple transverse and longitudinal images CLINICAL HISTORY: RUQ PAIN FINDINGS: The gallbladder shows no wall thickening, distention or stone disease. No biliary ductal dilatation is appreciated. No fluid collections are seen. Limited portions of the right liver are unremarkable. Limited portions of the right kidney are unremarkable. IMPRESSION: 1. No evidence of cholelithiasis 2. No evidence of biliary obstruction Reviewed, Interpreted and Dictated by Maik Nava MD Transcribed by Chani Elkins Authenticated and [facility]
== END 2023-12-20 23:59 | disposition home or self-care (01) ==
PROVIDERS: PCP Nurse Practitioner Family; Visit Provider Nurse Practitioner Family
DX: R10.11 Right upper quadrant pain (principal)
CPT/HCPCS: 76705

== ENCOUNTER → 2024-02-13 07:09 | Outpatient (CLI) | payer MEDICAID, SELFPAY | LOC: SL 07:10 | PROVIDERS: Visit Provider Specialist | DX: G47.33 Obstructive sleep apnea (adult) (pediatric) (principal) | CPT/HCPCS: G0399 ==

== ENCOUNTER 2024-04-05 09:11 | Emergency (ER) | payer MEDICAID, SELFPAY ==
[2024-04-05 10:00] VITALS: BP 112/79; PULSE 73; RESP 20; TEMP 36.8; O2SAT 98; BMI 36.3
--- NOTE | 2024-04-05 10:18 | ED_ITS ---
Discharge Plan Disposition Patient Disposition: Home, Self-Care Condition: Good Prescriptions Prescriptions: No Action buspirone 7.5 mg tablet 7.5 mg PO ONCE bupropion HCl 150 mg tablet extended release 24 hr 150 mg PO DAILY Patient Comments: Take 1 tablet every day by oral route, for depression. fluoxetine [Prozac] 40 mg capsule 40 mg PO DAILY Qty: 30 2RF Qulipta 60 mg tablet 60 mg PO DAILY Qty: 30 6RF levocetirizine 5 mg tablet See Rx Instructions .ROUTE .COMPLEX Qty: 30 5RF Dose Instruction: TAKE 1 TABLET 1 TIME EACH DAY IN THE EVENING FOR FOR ALLERGY SYMPTOMS Rx Instructions: TAKE 1 TABLET 1 TIME EACH DAY IN THE EVENING FOR FOR ALLERGY SYMPTOMS Referrals Follow up/Referrals: Ronna Rainey [Primary Care Provider] - See instructions Activity Restrictions/Add. Instructions Additional Instructions/Restrictions: Follow-up with primary care for more workup If symptoms worsen or do not improve return Clinical Impressions Clinical Impression: Acute wrist pain, Acute leg pain Instructions Patient Instructions: DI for Wrist Pain, DI for Leg Pain Print Language Print Language: Setswana Discharge ED Provider: Johnny ([facility] [facility] [place] General Stated complaint: leg and arm pain Mode of Arrival: Ambulatory Source of Information: Patient Limitations: No Limitations Time Seen by Provider: 04/05/24 10:03 Description of Symptoms (Recalled from Triage Doc. by RN): PATIENT C/O PAIN TO RIGHT FOREARM AND RIGHT LOWER LEG FOR A COUPLE OF WEEKS, NO KNOWN INJURY HEENT Symptoms (Recalled from RN notes): No Resp Symptoms (Recalled from RN notes): No Skin Symptoms (Recalled from RN notes): No MS Symptoms (Recalled from RN notes): Yes Functional Status (Recalled from RN notes): WNL History of Present Illness Provider Complaint: 33-year-old female presents for pain in pinky that radiates down forearm and pain in right calf muscle for couple of weeks and walking makes it worse Related Data Home Medications ?Medication ?Instructions ?Recorded ?Confirmed buspirone 7.5 mg tablet 7.5 mg PO ONCE 07/24/23 04/05/24 bupropion HCl 150 mg 24 hr tablet, 150 mg PO DAILY 11/19/23 04/05/24 extended release Previous Rx's ?Medication ?Instructions ?Recorded levocetirizine 5 mg tablet See Rx Instructions .Route 01/10/23 .COMPLEX #30 tabs fluoxetine 40 mg capsule (Prozac) 40 mg PO DAILY #30 caps 04/08/23 atogepant 60 mg tablet (Qulipta) 60 mg PO DAILY #30 tabs 01/01/24 Allergies Allergy/AdvReac Type Severity Reaction Status Date / Time azithromycin [AZITHROMYCIN] Allergy Mild Unknown Verified 04/05/24 10:17 allergy reaction latex [LATEX] Allergy Mild Unknown Verified 04/05/24 10:17 allergy reaction cefdinir Allergy Unknown Verified 04/05/24 10:17 allergy reaction Worker's Comp Is this a Worker's Comp case?: No [facility] Disclaimer: The information contained in this section may have been updated after the patient was seen, as this information can be updated by other users. 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) Smoking Status: Never smoker alcohol intake: never substance use type: denies use current occupational status: employed Travel in the last 8 weeks: None housing: house ROS Obtained: Yes Systems reviewed as appropriate & no additional complaints except as documented Musculoskeletal Musculoskeletal: Reports system reviewed and no additional complaints, except as documented, Reports as per HPI, Reports arthralgias, Reports myalgias, Reports radiating pain into limb and Reports small joint pain in the hands Physical Exam General General appearance: alert and in no apparent distress Head Head exam: atraumatic Eye Eye exam: Present normal appearance ENT ENT exam: Present normal exam Respiratory Respiratory exam: Present normal lung sounds bilaterally Cardiovascular Cardiovascular exam: Present regular rate and normal rhythm Extremities Exam Extremities exam: Present normal inspection, full ROM and tenderness Expanded Upper Extremity Exam Right: Arm exam: Present normal inspection and full ROM Elbow exam: Present normal inspection and full ROM Forearm/Wrist exam: Present normal inspection and full ROM Hand exam: Present normal inspection and full ROM Neuromotor exam: Normal wrist extension Neurosensory exam: Normal radial nerve Expanded Lower Extremity Exam Right: Upper leg exam: Present normal inspection and full ROM Lower leg exam: Present normal inspection and full ROM Neurological Exam Neurological exam: Present alert, oriented X3 and CN II-XII intact Lymphatic Lymphatic Findings: no adenopathy Medical Decision Making Medical Records Medical records reviewed: Yes I reviewed the patient's medical records. Screening: Per USPSTF and CDC recommendations, given the prevalence of disease in our region, it is our hospital?s policy to screen for HIV and viral Hepatitis for all patients aged 18 and over and those with ongoing risk factors. Burton Inquiry Pt receiving controlled substance: No Burton was queried for this patient: No Vital Signs: 04/05/24 10:00 Temperature 98.2 F Temperature Source Oral Pulse Rate [Left Brachial] 73 Respiratory Rate 20 Blood Pressure [Left Arm] 112/79 Blood Pressure Mean [Left Arm] 90 Blood Pressure Source [Left Arm] Automatic Cuff Blood Pressure Position [Left Arm] Sitting 02 Sat by Pulse Oximetry 98 Oxygen Delivery Method Room Air Lab Data Lab results reviewed: Yes I reviewed the patient's lab results. Orders (Tests/Meds): ORDERS Category Date Time Status CBC Man Diff [Complete Blood Count Man Dif] Stat Lab 04/05/24 10:08 Ordered CMP [Comprehensive Metabolic Panel] Stat Lab 04/05/24 10:07 Ordered Magnesium Stat Lab 04/05/24 10:07 Ordered
[2024-04-05 11:01] LABS: MANUAL DIFFERENTIAL MANUAL DIFFERENTIAL (MANUAL DIFF)
[2024-04-05 11:04] LABS: Basophils # 0.1 K/mm3 (0-0.2); Basophils % 1.2 % (0.1-2.0); Eosinophils # 0.1 K/mm3 (0.0-0.4); Eosinophils % 1.5 % (0.1-12.0); Hematocrit 42.4 % (37.0-47.0); Hemoglobin 13.9 g/dL (12.2-16.2); Lymphocytes # 2.9 K/mm3 (0.7-4.5); Mean Corpuscular HGB Conc 32.7 g/dL (31.8-35.4); Mean Corpuscular Hemoglobin 25.7 pg (27.0-31.2); Mean Corpuscular Volume 78.5 fl (81-99); Mean Platelet Volume 6.8 fl (7.4-10.4); Monocytes # 0.4 K/mm3 (0.1-1.0); Monocytes % 5.2 % (1.7-9.3); Neutrophils # 3.8 K/mm3 (1.8-7.8); Neutrophils % 52.1 % (37.0-80.0); Platelet Count 319 K/mm3 (142-424); Red Cell Distribution Width 14.4 % (11.5-17.5); White Blood Count 7.4 K/mm3 (4.8-10.8)
[2024-04-05 11:10] LABS: Alanine Aminotransferase 27 U/L (12-78); Albumin/Globulin Ratio 1.3 (1.1-1.8); Alkaline Phosphatase 88 U/L (38-126); Anion Gap 7.4 mEq/L (5-15); Aspartate Amino Transferase 31 U/L (14-36); Bilirubin,Total 0.5 mg/dl (0.2-1.3); Blood Urea Nitrogen 11 mg/dl (7-17); Calcium 8.9 mg/dl (8.4-10.2); Carbon Dioxide 31 mmol/L (22.0-30.0); Chloride 103 mmol/L (98-107); Creatinine Clearance Estimated 129 mL/min (50-200); Estimated Glomerular Filt Rate 83 ml/min (>60); GFR (African American) 100 ML/MIN (>60); Glucose 84 mg/dl (74-100); Potassium 4.4 mmoL/L (3.5-5.1); Sodium 137 mmol/L (136-145)
[2024-04-05 11:14] LABS: Magnesium 2.1 mg/dl (1.6-2.3)
[2024-04-05 11:19] VITALS: BP 112/79; PULSE 73; RESP 20; TEMP 36.8; O2SAT 98
[2024-04-05 11:48] LABS: Hypochromasia 1+; Lymphocytes % 50 % (10-50); Monocytes % 5 % (2-9); Neutrophils % 45 % (42-76); Platelet Estimate Normal; Total Cells Counted 100
== END 2024-04-05 11:26 | disposition home or self-care (01) ==
PROVIDERS: Emergency Provider Nurse Practitioner Family; PCP Nurse Practitioner Family
DX: M25.531 Pain in right wrist (principal); M79.661 Pain in right lower leg
CPT/HCPCS: 80053; 83735; 85007; 85014; 85018; 85048; 85049; 99213; G0381

== ENCOUNTER 2024-04-07 16:49 | Emergency (ER) | payer MEDICAID, SELFPAY ==
[2024-04-07 17:49] VITALS: BP 119/77; PULSE 81; RESP 19; TEMP 37.1; O2SAT 98; BMI 25.1
--- NOTE | 2024-04-07 17:53 | ED_ITS ---
Discharge Plan Disposition Patient Disposition: Home, Self-Care Condition: Good Prescriptions Prescriptions: No Action buspirone 7.5 mg tablet 7.5 mg PO ONCE bupropion HCl 150 mg tablet extended release 24 hr 150 mg PO DAILY Patient Comments: Take 1 tablet every day by oral route, for depression. fluoxetine [Prozac] 40 mg capsule 40 mg PO DAILY Qty: 30 2RF Qulipta 60 mg tablet 60 mg PO DAILY Qty: 30 6RF levocetirizine 5 mg tablet See Rx Instructions .ROUTE .COMPLEX Qty: 30 5RF Dose Instruction: TAKE 1 TABLET 1 TIME EACH DAY IN THE EVENING FOR FOR ALLERGY SYMPTOMS Rx Instructions: TAKE 1 TABLET 1 TIME EACH DAY IN THE EVENING FOR FOR ALLERGY SYMPTOMS metformin 500 mg tablet extended release 24 hr 500 mg PO DIRECTED Patient Comments: TAKE ONE TABLET BY MOUTH ONCE DAILY Qulipta 60 mg tablet 60 mg PO DIRECTED Patient Comments: take 1 tablet by mouth daily Referrals Follow up/Referrals: Ronna Rainey [Primary Care Provider] - See instructions Activity Restrictions/Add. Instructions Additional Instructions/Restrictions: Drink plenty of fluids. Resume your normal prescribed migraine medications. Go home and rest. Follow up with your regular doctor. GO TO THE ER FOR ANY WORSENING SYMPTOMS Clinical Impressions Clinical Impression: Migraine Stand Alone Forms Stand Alone Forms: Work/School Release Instructions Patient Instructions: Migraine -- Adult, DI for Migraine, Promethazine, Ketorolac Injection, Dexamethasone Injection Print Language Print Language: Senegalese Discharge ED Provider: Elijah Dale [facility] [place] HPI General Stated complaint: GARCIA Time Seen by Provider: 04/07/24 17:53 History of Present Illness Provider Complaint: She states that she has had a migraine headache for the past 2 days. She has taken her normal prescribed medications and they have not relieved the headache. She denies that this headache is the worst in her life. She states that it feels like her normal migraine symptoms. She has had to have a toradol injection in the past for similar symptoms. That is what she is requesting to have. Related Data Home Medications ?Medication ?Instructions ?Recorded ?Confirmed buspirone 7.5 mg tablet 7.5 mg PO ONCE 07/24/23 04/07/24 bupropion HCl 150 mg 24 hr tablet, 150 mg PO DAILY 11/19/23 04/07/24 extended release atogepant 60 mg tablet (Qulipta) 60 mg PO DIRECTED 04/07/24 04/07/24 metformin 500 mg tablet,extended 500 mg PO DIRECTED 04/07/24 04/07/24 release 24 hr Previous Rx's ?Medication ?Instructions ?Recorded levocetirizine 5 mg tablet See Rx Instructions .Route 01/10/23 .COMPLEX #30 tabs fluoxetine 40 mg capsule (Prozac) 40 mg PO DAILY #30 caps 04/08/23 atogepant 60 mg tablet (Qulipta) 60 mg PO DAILY #30 tabs 01/01/24 Allergies Allergy/AdvReac Type Severity Reaction Status Date / Time azithromycin [AZITHROMYCIN] Allergy Mild Unknown Verified 04/05/24 10:17 allergy reaction latex [LATEX] Allergy Mild Unknown Verified 04/05/24 10:17 allergy reaction cefdinir Allergy Unknown Verified 04/05/24 10:17 allergy reaction PFSH [facility] Disclaimer: The information contained in this section may have been updated after the patient was seen, as this information can be updated by other users. 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) Smoking Status: Never smoker alcohol intake: never substance use type: denies use current occupational status: employed Travel in the last 8 weeks: None housing: house ROS Obtained: Yes All systems reviewed & no additional complaints except as documented Constitutional Constitutional: Denies chills, Denies fever(s) and Reports headache(s) Eyes Eyes: Denies eye discharge ENT Ears, Nose, Mouth, and Throat: Denies dizziness, Denies otalgia, Reports headache(s) and Denies sore throat Cardiovascular Cardiovascular: Denies chest pain Respiratory Respiratory: Denies shortness of breath, Denies chest congestion, Denies cough, Denies stridor and Denies wheezing Gastrointestinal Gastrointestingal: Denies nausea or vomiting Musculoskeletal Musculoskeletal: Reports system reviewed and no additional complaints, except as documented and Denies arthralgias Integumentary/Breasts Skin/Breast: Denies rash Neurologic Neurologic: Reports as per HPI, Denies dizziness, Reports headache(s) and Denies paresthesias Allergic/Immunologic Allergic/Immunologic: Denies wheezing Physical Exam General General appearance: alert and in no apparent distress Head Head exam: atraumatic, normocephalic and normal inspection Eye Eye exam: Present normal appearance, PERRL and EOMI ENT ENT exam: Present normal exam, normal oropharynx, mucous membranes moist, TM's normal bilaterally and normal external ear exam Neck Neck exam: Present normal inspection, full ROM and trachea midline; Absent meningismus or lymphadenopathy Chest Chest inspection: Present normal inspection and symmetric chest wall rise; Absent tenderness Respiratory Respiratory exam: Present normal lung sounds bilaterally; Absent respiratory distress Cardiovascular Cardiovascular exam: Present regular rate and normal rhythm; Absent JVD Abdominal Exam Abdominal exam: Present soft and normal bowel sounds; Absent distention, tenderness or guarding Extremities Exam Extremities exam: Present normal inspection, full ROM and normal capillary refill; Absent calf tenderness Back Exam Back exam: Present normal inspection; Absent tenderness Neurological Exam Neurological exam: Present alert, oriented X3, CN II-XII intact, normal gait and reflexes normal; Absent motor sensory deficit Expanded Neurological Exam Patient oriented to: Present person, place and time Speech: Present fluid speech Cranial nerves: Normal: EOM function (II, III, IV, ), facial sensation (V), facial palsy (VII), gag reflex (IX), spinal accessory function (XI) and tongue deviation (XII) Cerebellar function: Normal: finger to nose Cerebellar function: normal gait Motor strength - LUE: 5/5 Motor strength - RUE: 5/5 Motor strength - LLE: 5/5 Motor strength - RLE: 5/5 Upper motor neuron exam: Normal: david neglect and sensory extinction Sensory exam upper extremity: Normal: light touch and 2 point discrimination Sensory exam lower extremity: Normal: light touch and 2 point discrimination DTR: 2+: biceps (L), biceps (R), patellar (L), patellar (R), Achilles tendon (L) and Achilles tendon (R) Psychiatric Psychiatric exam: Present normal affect and normal mood Skin Skin exam: Present warm, dry, intact and normal color Lymphatic Lymphatic Findings: no adenopathy Medical Decision Making Medical Records Medical records reviewed: No I reviewed the patient's medical records. Screening: Per USPSTF and CDC recommendations, given the prevalence of disease in our region, it is our hospital?s policy to screen for HIV and viral Hepatitis for all patients aged 18 and over and those with ongoing risk factors. Burton Inquiry Pt receiving controlled substance: No
[2024-04-07] MEDS: PROMETHAZINE HCL 25MG/ML 1ML VIAL 25 MG IM (18:50)
[2024-04-07] MEDS: KETOROLAC 60MG/2ML VIAL 60 MG IM (18:50)
[2024-04-07] MEDS: DEXAMETHASONE 4MG/ML 1ML VIAL 8 MG IM (18:51)
[2024-04-07 19:03] VITALS: BP 119/77; PULSE 81; RESP 19; TEMP 37.1
== END 2024-04-07 19:06 | disposition home or self-care (01) ==
PROVIDERS: Emergency Provider Nurse Practitioner Family; PCP Nurse Practitioner Family
DX: G43.909 Migraine, unspecified, not intractable, without status migrainosus (principal)
CPT/HCPCS: 96372; 99213; G0381; J1100; J1885; J2550

== ENCOUNTER 2024-05-21 16:22 | Emergency (ER) | payer MEDICAID, SELFPAY ==
--- NOTE | 2024-05-21 17:24 | PC.NURSE ---
no needs at this time
--- NOTE | 2024-05-21 17:49 | ED_ITS ---
<Statement entered by Mini Rhodes DO - 05/21/24 22:08> I was consulted by the MARIA ELENA, and we discussed the complexity of the problems being addressed. I approved the treatment and management plan for this patient's care in the emergency department, thus performing a substantive portion of the medical decision making. Mini Rhodes DO Discharge Plan Disposition Patient Disposition: Home, Self-Care Condition: Good Prescriptions Prescriptions: New methocarbamol 750 mg tablet 750 mg PO Q6H PRN (Reason: muscle spasm) Qty: 20 0RF prednisone 50 mg tablet 50 mg PO DAILY 5 Days Qty: 5 0RF ondansetron 4 mg tablet,disintegrating 4 mg PO QID PRN (Reason: nausea and vomiting) Qty: 10 0RF No Action buspirone 10 mg tablet 10 mg PO BID Patient Comments: TAKE ONE TABLET BY MOUTH TWICE DAILY omeprazole 20 mg capsule,delayed release(DR/EC) 20 mg PO DAILY Patient Comments: TAKE ONE CAPSULE BY MOUTH DAILY FOR 60 DAYS bupropion HCl 300 mg tablet extended release 24 hr 300 mg PO ONCE Patient Comments: TAKE ONE TABLET BY MOUTH ONCE DAILY levocetirizine [Xyzal] 5 mg tablet 5 mg PO DAILY Ubrelvy 100 mg tablet 100 mg PO ONCE PRN Patient Comments: take 1 tablet by mouth once As Needed for migraine headache Ajovy Autoinjector 225 mg/1.5 mL auto-injector 225 mg SQ QMONTH Qty: 1.5 3RF fluoxetine [Prozac] 40 mg capsule 40 mg PO DAILY Qty: 30 2RF metformin 500 mg tablet extended release 24 hr 500 mg PO DIRECTED Patient Comments: TAKE ONE TABLET BY MOUTH ONCE DAILY Referrals Follow up/Referrals: Ronna Rainey [Primary Care Provider] - See instructions Activity Restrictions/Add. Instructions Additional Instructions/Restrictions: Owing to await your urine culture to see if whether or not there is actually an infection there. If you start developing urinary symptoms please follow-up with your PCP sooner. Follow-up with your PCP next week for recheck and reevaluation to see if you may need referral to an orthopedic automotive product specialist. I have sent medications to your pharmacy to try and help with some of your symptoms. Return for any numbness tingling loss of bowel or bladder function loss of sensation. Clinical Impressions Clinical Impression: Low back pain Instructions Patient Instructions: DI for Low Back Pain Print Language Print Language: Lao Discharge ED Provider: Mini Rhodes General Adult HPI General Chief complaint: Back Pain/Injury Stated complaint: lower back pain Time Seen by Provider: 05/21/24 17:49 History of Present Illness HPI narrative: Patient presents for evaluation of acute low back pain. Patient has had atraumatic midline low back pain for going on 2 weeks. It has been progressive and patient can now find no position of comfort. Patient does not however have any radicular or neuropathic pain. It does not radiate. Nothing makes it better there is no position of comfort. She denies any fever chills hemoptysis hematochezia melena nausea vomiting diarrhea. She does not have any saddle anesthesia or loss of bowel or bladder function. Related Data Home Medications ?Medication ?Instructions ?Recorded ?Confirmed metformin 500 mg tablet,extended 500 mg PO DIRECTED 04/07/24 04/15/24 release 24 hr bupropion HCl 300 mg 24 hr tablet, 300 mg PO ONCE 04/14/24 04/15/24 extended release buspirone 10 mg tablet 10 mg PO BID 04/14/24 04/15/24 levocetirizine 5 mg tablet (Xyzal) 5 mg PO DAILY 04/14/24 04/15/24 omeprazole 20 mg capsule,delayed 20 mg PO DAILY 04/14/24 04/15/24 release ubrogepant 100 mg tablet (Ubrelvy) 100 mg PO ONCE PRN 04/14/24 04/15/24 Previous Rx's ?Medication ?Instructions ?Recorded fluoxetine 40 mg capsule (Prozac) 40 mg PO DAILY #30 caps 04/08/23 fremanezumab-vfrm 225 mg/1.5 mL 225 mg (1.5 mL) SQ QMONTH #1.5 mL 04/14/24 subcutaneous auto-injector (Ajovy) methocarbamol 750 mg tablet 750 mg PO Q6H PRN muscle spasm #20 05/21/24 tabs ondansetron 4 mg disintegrating 4 mg PO QID PRN nausea and 05/21/24 tablet vomiting #10 tabs prednisone 50 mg tablet 50 mg PO DAILY 5 days #5 tabs 05/21/24 Allergies Allergy/AdvReac Type Severity Reaction Status Date / Time azithromycin (AZITHROMYCIN) Allergy Mild Unknown Verified 04/15/24 15:29 allergy reaction latex (LATEX) Allergy Mild Unknown Verified 04/15/24 15:29 allergy reaction cefdinir Allergy Unknown Verified 04/15/24 15:29 allergy reaction PFSH PFSH Disclaimer: The information contained in this section may have been updated after the patient was seen, as this information can be updated by other users. 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 cause TMJ (temporomandibular joint syndrome) Hypothyroidism Depression Anxiety Gestational diabetes Seasonal allergies Surgical History History of tubal ligation History of Family History Mother Hypertension Thyroid disorder Father Hypertension Social History Smoking Status: Never smoker alcohol intake: never substance use type: denies use current occupational status: employed Travel in the last 8 weeks: None housing: house Have you lived/traveled outside [place] in past 30 days?: No Contact w/someone who lives/traveled outside US past 30 days?: No Exposure to someone with infectious disease in past 14 days?: No Do you have a fever (greater than 100.4 F or 38 C)?: No Have you tested positive for COVID-19: No Exposed to someone with COVID-19 in past 14 days?: No Do you have a sore throat?: No Do you have a cough?: No Do you have any weakness?: No Do you have any diarrhea?: No Are you experiencing any unusual bleeding?: No Do you have any muscle aches/pain?: No Do you have any abdominal pain?: No Are you experiencing loss of taste or smell?: No Other 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 Have you received the Flu Vaccine for this season: No Have you received the Pneumonia Vaccine: No ROS Obtained: Yes Systems reviewed as appropriate & no additional complaints except as documented Physical Exam General General appearance: alert and in no apparent distress Respiratory Respiratory exam: Present normal lung sounds bilaterally Cardiovascular Cardiovascular exam: Present regular rate Neurological Exam Neurological exam: Present alert and oriented X3 Medical Decision Making Medical Records Medical records reviewed: Yes I reviewed the patient's medical records. Screening: Per USPSTF and CDC recommendations, given the prevalence of disease in our region, it is our hospital?s policy to screen for HIV and viral Hepatitis for all patients aged 18 and over and those with ongoing risk factors. Burton Inquiry Pt receiving controlled substance: No Vital Signs: 05/21/24 17:55 Temperature 98.2 F Temperature Source Oral Pulse Rate [Right Radial] 71 Respiratory Rate 18 Blood Pressure [Right Arm] 134/86 Blood Pressure Mean [Right Arm] 102 02 Sat by Pulse Oximetry 97 Oxygen Delivery Method Room Air Lab Data Lab results reviewed: Yes I reviewed the patient's lab results. Lab Results 05/21/24 17:50: Urine Color Yellow, Urine Appearance Cloudy, Urine pH 8.5, Ur Specific [place] 1.020, Urine Protein Negative, Urine Glucose (UA) Negative, Urine Ketones Negative, Urine Blood Negative, Urine Nitrate Negative, Urine Bilirubin Negative, Urine Urobilinogen 0.2, Ur Leukocyte Esterase Negative, Urine RBC None, Urine WBC 3-5, Ur Squamous Epith Cells 5-10, Urine Bacteria 4+, Urine HCG, Qual Negative Orders (Tests/Meds): ED MEDICATIONS Generic Name Dose Route Start Last Admin Trade Name Freq PRN Reason Stop Dose Admin Dexamethasone Sodium Phosphate 10 mg 05/21/24 18:45 05/21/24 18:47 Dexamethasone 4mg/Ml 5ml Mdv IM 06/20/24 18:44 10 mg Q6H CHRISTIAN Administration Discontinued Medications Generic Name Dose Route Start Last Admin Trade Name Freq PRN Reason Stop Dose Admin Acetaminophen 1,000 mg 05/21/24 18:31 05/21/24 18:47 Acetaminophen 500mg Tab PO 05/21/24 18:32 1,000 mg ONCE ONE Administration Ibuprofen 800 mg 05/21/24 18:31 05/21/24 18:47 Ibuprofen 400 Mg Tablet PO 05/21/24 18:32 800 mg ONCE ONE Administration Methocarbamol 500 mg 05/21/24 18:31 05/21/24 18:47 Methocarbamol 500mg Tablet PO 05/21/24 18:32 500 mg ONCE ONE Administration ORDERS Category Date Time Status CT lumbar spine wo con Stat Cat Scan 05/21/24 18:30 Taken UA [Urinalysis and Microscopic] Stat Lab 05/21/24 17:50 Completed Urine , HCG Qual. Stat Lab 05/21/24 17:50 Completed Urine Culture Stat Micro 05/21/24 17:50 Received Medical Decision Narrative: In summary patient is a 33-year-old female who presents to the emergency department for evaluation of atraumatic low back pain. Patient is hemodynamically stable upon arrival, afebrile. Physical exam is remarkable for tenderness to palpation in the lumbar spine but no palpable bony deformities. It is in the midline. It does not radiate on palpation. I can feel and see no crepitus or step-offs contusions abrasions. Patient is neurovascular intact in both lower extremities has normal gait and station. Patient has no saddle anesthesia.. Differential diagnosis includes degenerative disc disease versus osteoarthritis versus muscle spasm etc. Initial workup will be conducted with CT scan Noncon of the lumbar spine. Initial interventions include ibuprofen acetaminophen Decadron IM. Initial workup reviewed by me and patient has a negative dipstick however microscopic exam shows no red blood cells 3-5 white ce lls white cells 5-10 epithelial cells and 4+ bacteria. Informed interpretation of her imaging shows no acute processes prior to radiology read. Upon repeat evaluation patient actually had improvement in her symptoms after initial intervention. Given this patient is appropriate for discharge with prescription for Robaxin and recommendations with close follow-up with her PCP for possible further evaluation for the cause of her pain. Today we have ruled out any serious or life-threatening condition to the best of our ability and feel the patient is safe for discharge. Critical Care Critical Care Time Critical Care Time: No
[2024-05-21 17:55] VITALS: BP 134/86; PULSE 71; RESP 18; TEMP 36.8; O2SAT 97; BMI 37.1
--- NOTE | 2024-05-21 18:30 | CT_ITS ---
PROCEDURE INFORMATION: Exam: CT Lumbar Spine Without Contrast Exam date and time: 05/21/2024 7:41 PM Age: 33 years old Clinical indication: Low back pain; Additional info: Midline low back pain for 2 weeks TECHNIQUE: Imaging protocol: Computed tomography of the lumbar spine without contrast. Radiation optimization: All CT scans at this facility use at least one of these dose optimization techniques: automated exposure control; mA and/or kV adjustment per patient size (includes targeted exams where dose is matched to clinical indication); or iterative reconstruction. COMPARISON: CT ABDOMEN PELVIS W CON 18/12/2020 10:43 FINDINGS: Bones/joints: No acute fracture. Normal alignment. No significant disc bulge or herniation. No severe spinal canal stenosis. No significant neural foraminal narrowing. Kidneys and ureters: Nonobstructing left renal calculi. Soft tissues: Unremarkable. IMPRESSION: 1. No acute fracture or malalignment of the lumbar spine. 2. Nonobstructing left renal calculi.
[2024-05-21] MEDS: DEXAMETHASONE 4MG/ML 5ML MDV 10 MG IM (18:47)
[2024-05-21] MEDS: ACETAMINOPHEN 500MG TAB 1000 MG PO (18:47)
[2024-05-21] MEDS: IBUPROFEN 400 MG TABLET 800 MG PO (18:47)
[2024-05-21] MEDS: METHOCARBAMOL 500MG TABLET 500 MG PO (18:47)
[2024-05-21 18:53] LABS: Microscopic, Urine URINE MICROSCOPIC (MICROSCOPIC)
--- NOTE | 2024-05-21 19:15 | PC.NURSE ---
I rounded on the pt and hooked her back up to her IVF. no new complaints at this time. call call in reach.
[2024-05-21 19:37] LABS: Urine Pregnancy, HCG Qual. Negative (Negative)
[2024-05-21 19:57] LABS: Appearance,Urine CLOUDY (Clear); Bilirubin,Urine Negative (Negative); Blood, Urine Negative (Negative); Color,Urine YELLOW (Yellow); Glucose,Urine (UA) Negative (Negative); Ketones,Urine Negative (Negative); Leukocyte Esterase,Urine Negative (Negative); Nitrate,Urine Negative (Negative); PH,Urine 8.5 (5.0-8.5); Protein,Urine Negative (Negative); Urobilinogen,Urine 0.2 EU/dl (0.2)
[2024-05-21 20:23] LABS: Bacteria,Urine 4+ /lpf
[2024-05-21 21:17] VITALS: BP 134/64; PULSE 64; RESP 18; TEMP 36.8; O2SAT 98
--- NOTE | 2024-05-23 18:58 | PC.NURSE ---
pt called and I instructed her about the levaquin sent in for her.
--- NOTE | 2024-05-24 08:39 | PC.NURSE ---
URINE CULTURE DISCUSSED WITH CARLA CERON SENT TO PHARMACY
== END 2024-05-21 21:20 | disposition home or self-care (01) ==
PROVIDERS: Emergency Provider Emergency Medicine; PCP Nurse Practitioner Family
DX: M54.50 Low back pain, unspecified (principal)
CPT/HCPCS: 72131; 81001; 81025; 87086; 87088; 87186; 96372; 99284; J1100

== ENCOUNTER 2024-06-25 17:00 | Outpatient (RCR) | payer MEDICAID, SELFPAY | END 2024-06-25 23:59 | disposition home or self-care (01) | LOC: PT 17:00 | PROVIDERS: Visit Provider Nurse Practitioner Family | DX: M54.50 Low back pain, unspecified (principal) | CPT/HCPCS: 97014; 97110; 97140; 97163; 97530; G0283 ==

== ENCOUNTER 2024-07-08 17:00 | Outpatient (RCR) | payer MEDICAID, SELFPAY | END 2024-07-08 23:59 | disposition home or self-care (01) | LOC: PT 17:00 | PROVIDERS: Visit Provider Nurse Practitioner Family | DX: M54.50 Low back pain, unspecified (principal) | CPT/HCPCS: 97014; 97110; 97140; G0283 ==

== ENCOUNTER 2024-08-11 16:08 | Emergency (ER) | payer MEDICAID, SELFPAY ==
--- NOTE | 2024-08-11 16:09 | ED_ITS ---
<Statement entered by Mini Rhodes DO - 08/11/24 23:42> I was consulted by the MARIA ELENA, and we discussed the complexity of the problems being addressed. I approved the treatment and management plan for this patient's care in the emergency department, thus performing a substantive portion of the medical decision making. Mini Rhodes DO Discharge Plan Disposition Patient Disposition: Home, Self-Care Condition: Good Prescriptions Prescriptions: No Action buspirone 10 mg tablet 10 mg PO BID Patient Comments: TAKE ONE TABLET BY MOUTH TWICE DAILY omeprazole 20 mg capsule,delayed release(DR/EC) 20 mg PO DAILY Patient Comments: TAKE ONE CAPSULE BY MOUTH DAILY FOR 60 DAYS bupropion HCl 300 mg tablet extended release 24 hr 300 mg PO ONCE Patient Comments: TAKE ONE TABLET BY MOUTH ONCE DAILY levocetirizine [Xyzal] 5 mg tablet 5 mg PO DAILY Ubrelvy 100 mg tablet 100 mg PO ONCE PRN Patient Comments: take 1 tablet by mouth once As Needed for migraine headache Ajovy Autoinjector 225 mg/1.5 mL auto-injector 225 mg SQ QMONTH Qty: 1.5 3RF fluoxetine [Prozac] 40 mg capsule 40 mg PO DAILY Qty: 30 2RF methocarbamol 750 mg tablet 750 mg PO Q6H PRN (Reason: muscle spasm) Qty: 20 0RF ondansetron 4 mg tablet,disintegrating 4 mg PO QID PRN (Reason: nausea and vomiting) Qty: 10 0RF levofloxacin 750 mg tablet 750 mg PO DAILY 7 Days Qty: 7 0RF Referrals Follow up/Referrals: Ronna Rainey [Primary Care Provider] - See instructions Lexy Gamino DPM [Staff Physician] - See instructions (Right fifth toe injury) Activity Restrictions/Add. Instructions Additional Instructions/Restrictions: I have referred you to podiatry for further evaluation. I recommend that you wear a hard soled shoe and continue taking Tylenol alternating with Motrin as needed for symptomatic treatment. If you have any continuing new or worsening signs or symptoms follow-up with your PCP as needed. Clinical Impressions Clinical Impression: Pain in toe Qualifiers: Laterality: right Qualified Code(s): M79.674 - Pain in right toe(s) Print Language Print Language: Venezuelan Discharge ED Provider: Mini Rhodes General Adult HPI General Chief complaint: Extremity Injury, Lower Stated complaint: RT pinky toe pain Time Seen by Provider: 08/11/24 16:09 History of Present Illness HPI narrative: Patient presents for evaluation of right fifth digit pain. Patient states approximately 2 weeks ago she injured her fifth toe on her right foot while opening a door. She states it did not turn black or blue appeared normal it hurt but not overly so. Patient reports that it continues to hurt 2 weeks later. She denies any numbness tingling loss of motor or sensory. Related Data Home Medications ?Medication ?Instructions ?Recorded ?Confirmed bupropion HCl 300 mg 24 hr tablet, 300 mg PO ONCE 04/14/24 06/16/24 extended release buspirone 10 mg tablet 10 mg PO BID 04/14/24 06/16/24 levocetirizine 5 mg tablet (Xyzal) 5 mg PO DAILY 04/14/24 06/16/24 omeprazole 20 mg capsule,delayed 20 mg PO DAILY 04/14/24 06/16/24 release ubrogepant 100 mg tablet (Ubrelvy) 100 mg PO ONCE PRN 04/14/24 04/15/24 Previous Rx's ?Medication ?Instructions ?Recorded fluoxetine 40 mg capsule (Prozac) 40 mg PO DAILY #30 caps 04/08/23 fremanezumab-vfrm 225 mg/1.5 mL 225 mg (1.5 mL) SQ QMONTH #1.5 mL 04/14/24 subcutaneous auto-injector (Ajovy) methocarbamol 750 mg tablet 750 mg PO Q6H PRN muscle spasm #20 05/21/24 tabs ondansetron 4 mg disintegrating 4 mg PO QID PRN nausea and 05/21/24 tablet vomiting #10 tabs levofloxacin 750 mg tablet 750 mg PO DAILY 7 days #7 tabs 05/23/24 Allergies Allergy/AdvReac Type Severity Reaction Status Date / Time azithromycin (AZITHROMYCIN) Allergy Mild Unknown Verified 06/16/24 16:15 allergy reaction latex (LATEX) Allergy Mild Unknown Verified 06/16/24 16:15 allergy reaction cefdinir Allergy Unknown Verified 06/16/24 16:15 allergy reaction PFSH PFSH Disclaimer: The information contained in this section may have been updated after the patient was seen, as this information can be updated by other users. 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 Dizziness of unknown cause TMJ (temporomandibular joint syndrome) Hypothyroidism Depression Anxiety Gestational diabetes Seasonal allergies Surgical History History of tubal ligation History of Family History Mother Hypertension Thyroid disorder Father Hypertension Social History Smoking Status: Never smoker alcohol intake: never substance use type: denies use current occupational status: employed Travel in the last 8 weeks: None housing: house Have you lived/traveled outside US in past 30 days?: No Contact w/someone who lives/traveled outside US past 30 days?: No Exposure to someone with infectious disease in past 14 days?: No Do you have a fever (greater than 100.4 F or 38 C)?: No Have you tested positive for COVID-19: No Exposed to someone with COVID-19 in past 14 days?: No Do you have a sore throat?: No Do you have a cough?: No Do you have any weakness?: No Do you have any diarrhea?: No Are you experiencing any unusual bleeding?: No Do you have any muscle aches/pain?: No Do you have any abdominal pain?: No Are you experiencing loss of taste or smell?: No Other 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 Have you received the Flu Vaccine for this season: No Have you received the Pneumonia Vaccine: No ROS Obtained: Yes Systems reviewed as appropriate & no additional complaints except as documented Physical Exam General General appearance: alert and in no apparent distress Respiratory Respiratory exam: Present normal lung sounds bilaterally Cardiovascular Cardiovascular exam: Present regular rate Neurological Exam Neurological exam: Present alert and oriented X3 Medical Decision Making Medical Records Screening: Per USPSTF and CDC recommendations, given the prevalence of disease in our region, it is our hospital?s policy to screen for HIV and viral Hepatitis for all patients aged 18 and over and those with ongoing risk factors. [place] Inquiry Pt receiving controlled substance: No Vital Signs: 08/11/24 16:14 Temperature 97.7 F Temperature Source Oral Pulse Rate [Radial] 63 Respiratory Rate 16 Blood Pressure [Right Arm] 153/90 H Blood Pressure Mean [Right Arm] 111 Blood Pressure Source [Right Arm] Automatic Cuff Blood Pressure Position [Right Arm] Sitting 02 Sat by Pulse Oximetry 100 Oxygen Delivery Method Room Air Orders (Tests/Meds): ORDERS Category Date Time Status Foot XR right minimum 3 views [XR foot RT min 3V] Stat Exams 08/11/24 16:16 Completed HIV Combo Stat Lab 08/11/24 16:17 Ordered Hepatitis C Ab Qual. W/ RFX Stat Lab 08/11/24 16:17 Ordered Medical Decision Narrative: In summary patient is a 33-year-old female who presents to the emergency department for evaluation of right fifth toe pain. Patient is hemodynamically stable upon arrival, afebrile. Physical exam is remarkable for tenderness to palpation at the MTP joint and of the toe itself however there is no edema no palpable bony deformity there is no pain with palpation of the fifth metatarsal. Patient has full range of motion is neurovascular intact distally. Differential diagnosis includes fracture versus ligamentous or other soft tissue injury. Initial workup will be conducted with a film x-rays. Initial interventions were considered however patient is already taking Tylenol Motrin today prior to arrival. Initial workup reviewed by me my informal interpretation of her imaging shows no acute fracture. Given this patient is continuing to have symptoms and I am unable to fully ascertain whether or not she has a soft tissue injury I will refer the pronation to podiatry for follow-up. I recommend patient wear hard soled shoe continue taking Tylenol alternating with Motrin as needed for symptomatic treatment. Critical Care Critical Care Time Critical Care Time: No
[2024-08-11 16:14] VITALS: BP 153/90; PULSE 63; RESP 16; TEMP 36.5; O2SAT 100; BMI 38.3
--- NOTE | 2024-08-11 16:16 | XR_ITS ---
FINAL REPORT CLINICAL HISTORY: Fifth digit pain after kicking a door COMPARISON: none FINDINGS: Three views of the right foot show no evidence of acute displaced fracture or dislocation of the visualized bony architecture. The joint spaces appear normal. IMPRESSION: Unremarkable exam. Reviewed, Interpreted and Dictated by Maik Nava MD Transcribed by Shirlene Beavers Authenticated and [facility]
[2024-08-11 17:25] VITALS: BP 141/85; PULSE 65; RESP 18; TEMP 36.7; O2SAT 99
== END 2024-08-11 17:22 | disposition home or self-care (01) ==
PROVIDERS: Emergency Provider Emergency Medicine; PCP Nurse Practitioner Family
DX: M79.674 Pain in right toe(s) (principal); W22.8XXA Striking against or struck by other objects, initial encounter; Y93.89 Activity, other specified; Y92.9 Unspecified place or not applicable
CPT/HCPCS: 73630; 99283

== ENCOUNTER 2024-09-23 13:26 | Outpatient (CLI) | payer MEDICAID, SELFPAY ==
--- NOTE | 2024-09-23 13:28 | XR_ITS ---
FINAL REPORT CLINICAL HISTORY: Right 5th toe FX COMPARISON: 08/11/2024 FINDINGS: RIGHT FOOT Three views were obtained. There is no fracture or dislocation. The joint spaces appear normal. No soft tissue abnormality is identified. IMPRESSION: No acute process. Reviewed, Interpreted and Dictated by Arden Sood MD Transcribed by Chani Elkins Authenticated and [facility]
== END 2024-09-23 23:59 | disposition home or self-care (01) ==
LOC: RAD 13:27
PROVIDERS: PCP Nurse Practitioner Family; Visit Provider Nurse Practitioner
DX: M79.671 Pain in right foot (principal)
CPT/HCPCS: 73630

== ENCOUNTER 2024-12-30 07:47 | Outpatient (CLI) | payer MEDICAID, SELFPAY ==
--- OUTSIDE RECORDS SUMMARY | 2024-12-30 07:49 | XMS_ITS | Clinical Summary ---
Author Organization Healthcare Address [address] [place] [address] Care Team Providers Care Machine Set Up Operator Name Role Phone Ronna Rainey APRN Primary Care Provider + [phone] Encounters Date Type Department Care Team Description 12/22/2024 Travel 10/23/2024 Telephone [place] Clinic [facility] [address] [place] [address] Myron Michelle PA from Last 3 Months Social History Tobacco Use Types Packs/Day Years Used Date Smoking Tobacco: Never Assessed Comments Unknown Sex and Gender Information Value Date Recorded Sex Assigned at Not on file Legal Sex Female 7:32 PM EDT Gender Identity Not on file Sexual Orientation Not on file Plan of Treatment Health Maintenance Due Date Last Done Comments [facility]-Depression Screening 1990 [facility]-HIV Screening 1990 [facility]-Hepatitis C Screening 1990 [facility]-/Child/Adol SDOH Screenings 1990 [facility]-Varicella Vaccines (1 of 2 - 13+ 2-dose series) 11/14/2003 HPV Vaccines (1 - 3-dose series) 2005 [facility]- SDOH Screenings 2008 [facility]-Adult SDOH Screenings 2008 [facility]-Hepatitis B Vaccines (1 of 3 - 19+ 3-dose series) 2009 [facility]-Pap Smear 11/14/2011 [facility]-Cervical Cancer Screening 2020 [facility]-HPV/Cotest 2020 [facility]-DTaP,Tdap,and Td Vaccines (2 - Td or Tdap) 02/10/2023 02/10/2013 [id number] Vaccine ( season) 2024 01/20/2021, 12/19/2020 [facility]-Influenza Vaccine (#1) 2025 02/15/2020 [facility]-Zoster Vaccines (1 of 2) 2040 [facility]-Hepatitis A Vaccines Aged Out 10/08/2017 No longer eligible based on patient's age to complete this topic [facility]-HIB Vaccines Aged Out No longer e ligible based on patient's age to complete this topic [facility]-IPV Vaccines Aged Out No longer e ligible based on patient's age to complete this topic [facility]-Pneumococcal Vaccine: Pediatrics (0 to 5 Years) and At-Risk Patients (6 to 49 Years) Aged Out No longer eligible b ased on patient's age to complete this topic [facility]-Rotavirus Vaccines Aged Out No lo nger eligible based on patient's age to complete this topic Insurance [employer] Care Teams Machine Set Up Operator Relationship Specialty Start Date End Date Ronna Rainey APRN [address] [place] [address] PCP - General 04/16/24
--- OUTSIDE RECORDS SUMMARY | 2024-12-30 07:49 | XMS_ITS | Encounter Summary ---
Author Organization Healthcare Address [address] [place] [address] Care Team Providers Care Poultry Helper Name Role Phone Ronna Rainey APRN Primary Care Provider [phone] Encounter Details Date Type Department Care Team (Late st Contact Info) Description 10/23/2024 Telephone [place] [facility] [address] [place] [address] Myron Michelle, CELSO [address] [place] [address] Social History Tobacco Use Types Packs/Day Years Used Date Smoking Tobacco: Never Assessed Comments Unknown Sex and Gender Information Value Date Recorded Sex Assigned at Not on file Legal Sex Female 7:32 PM EDT Gender Identity Not on file Sexual Orientation Not on file documented as of this encounter Plan of Treatment Not on file documented as of this encounter Visit Diagnoses Not on filedocumented in this encounter Care Teams Poultry Helper Relationship Specialty Start Date End Date Ronna Rainey APRN [address] [place] [address] PCP - General 04/16/24 documented as of this encounter
--- OUTSIDE RECORDS SUMMARY | 2024-12-30 07:49 | XMS_ITS | Encounter Summary ---
Author Organization [facility] Address [address] [place] [address] Care Team Providers Care Explosives Worker Name Role Phone Ronna Rainey APRN Primary Care Provider [phone] Reason for Referral * Consultation (Routine) - Authorized Specialty Diagnoses / Procedures Referred By Contac t Referred To Contact Neurology Diagnoses Intractable chronic migraine without aura and without status migrainosus Irina Troncoso MD [address] [place] [address] Phone: tel: fax: Referral ID Status Reason Start Date Expiration Date Visits Requested Visits Authorized [id number] Authorized Specialty Services Required 10/15/2025 1 1 Encounter Details Date Type Department Care Team (Late st Contact Info) Description 04/15/2024 Community [facility] [address] [place] [address] Irina Troncoso MD [address] [place] [address] Intractable chronic migraine without aura and without status migrainosus (Primary Dx) Social History Tobacco Use Types Packs/Day Years Used Date Smoking Tobacco: Never Assessed Comments Unknown Sex and Gender Information Value Date Recorded Sex Assigned at Not on file Legal Sex Female 7:32 PM EDT Gender Identity Not on file Sexual Orientation Not on file documented as of this encounter Plan of Treatment Scheduled Referrals Name Type Priority Associated Diagnoses Orde r Schedule Ambulatory referral to Neurology Outpatient Referral Routine Intractable chronic migraine without aura and without status migrainosus Expected: 04/15/2024 (Approximate), Expires: 10/13/2025 documented as of this encounter Visit Diagnoses Diagnosis Intractable chronic migraine without aura and without status migrainosus- Primary documented in this encounter Care Teams Explosives Worker Relationship Specialty Start Date End Date Ronna Rainey, WILFRIDO [address] [place] [address] PCP - General 04/16/24 documented as of this encounter
--- OUTSIDE RECORDS SUMMARY | 2024-12-30 07:49 | XMS_ITS | Encounter Summary ---
Author Organization Healthcare Address [address] [place] [address] Care Team Providers Care Raspberry Checker Name Role Phone Ronna Rainey APRN Primary Care Provider [phone] Encounter Details Date Type Department Care Team (Latest Contact Info) Description 12/22/2024 Travel Social History Tobacco Use Types Packs/Day Years [...] on filedocumented in this encounter Care Teams Raspberry Checker Relationship Specialty Start Date End Date Ronna Rainey, WILFRIDO [address] [place] [address] PCP - General 04/16/24 documented as of this encounter
== END 2024-12-30 23:59 | disposition home or self-care (01) ==
LOC: LAB 07:48
PROVIDERS: PCP Nurse Practitioner Family; Visit Provider Student in an Organized Health Care Education/Training Program
DX: R79.89 Other specified abnormal findings of blood chemistry (principal)
CPT/HCPCS: 36415; 82024; 82533

== ENCOUNTER 2025-02-23 13:12 | Emergency (ER) | payer MEDICAID, SELFPAY ==
[2025-02-23 13:12] VITALS: BP 144/92; PULSE 82; RESP 16; TEMP 37; O2SAT 100; BMI 38.1
--- NOTE | 2025-02-23 13:13 | ECG_ITS ---
APPROVED REPORT Exam: Resting ECG HR:77 bpm ECG Measurements Heart Rate 77 AXES WV 142 P 60 QRSd 103 QRS 40 QT 377 T 64 QTc 409 Conclusion Sinus rhythm Normal axis Normal intervals No STEMI Electronically signed by : Cristobal Herron, 02/24/2025 16:46:22
--- NOTE | 2025-02-23 13:32 | XR_ITS ---
FINAL REPORT CLINICAL HISTORY: Shortness of breath, chest pain COMPARISON: None FINDINGS: CHEST 1 VIEW The heart size is normal. The mediastinum is normal. There is no focal infiltrate or edema. There are no pleural effusions. There is no pneumothorax. There is no osseous abnormality. IMPRESSION: No acute cardiopulmonary process Reviewed, Interpreted and Dictated by Arden Sood MD Transcribed by Qing Richter Authenticated and [facility]
--- OUTSIDE RECORDS SUMMARY | 2025-02-23 13:36 | XMS_ITS | Encounter Summary ---
Author Organization [facility] Address [address] [place] [address] Care Team Providers Care Gettering Operator Name Role Phone Ronna Rainey APRN Primary Care Provider [phone] Reason for Referral * Consultation (Routine) - Authorized Specialty Diagnoses / Procedures Referred By Contac t Referred To Contact Neurology Diagnoses Intractable chronic migraine without aura and without status migrainosus Irina Troncoso MD [address] [facility] [address] [place] [address] Phone: tel: fax: Referral ID Status Reason Start Date Expiration Date Visits Requested Visits Authorized [id number] Authorized Specialty Services Required 10/15/2025 1 1 Encounter Details Date Type Department Care Team (Late st Contact Info) Description 04/15/2024 Community [facility] [address] [place] [address] Irina Troncoso MD [address] [place] [address] Intractable chronic migraine without aura and [...] Primary documented in this encounter Care Teams Gettering Operator Relationship Specialty Start Date End Date Ronna Rainey, WILFRIDO [address] [place] [address] PCP - General 04/16/24 documented as of this encounter
--- OUTSIDE RECORDS SUMMARY | 2025-02-23 13:36 | XMS_ITS | Clinical Summary ---
Author Organization [facility] Address [address] [place] [address] Care Team Providers Care Passenger Attendant Name Role Phone Ronna Rainey APRN Primary Care Provider + [phone] Encounters Date Type Department Care Team Description 12/22/2024 Travel from Last 3 Months Social History Tobacco Use Types Packs/Day Years Used Date Smoking Tobacco: Never Assessed Comments Unknown Sex and Gender Information Value Date Recorded Sex Assigned at Not on file Legal Sex Female 7:32 PM EDT Gender Identity Not on file Sexual Orientation Not on file Plan of Treatment Health Maintenance Due Date Last Done Comments [facility]-Depression Screening 1990 [facility]-/Child/Adol SDOH Screenings 1990 [facility]-Varicella Vaccines (1 of 2 - 13+ 2-dose series) 11/14/2003 [facility]- SDOH Screenings 2008 [facility]-Adult SDOH Screenings 2008 [facility]-Hepatitis B Vaccines (1 of 3 - 19+ 3-dose series) 2009 [facility]-Pap Smear 11/14/2011 HPV Vaccines (1 - 3-dose SCDM series) 2017 [facility]-Cervical Cancer Screening 2020 [facility]-HPV/Cotest 2020 [facility]-DTaP,Tdap,and Td Vaccines (2 - Td or Tdap) 02/10/2023 02/10/2013 [id number] Vaccine (3 - 2024- season) 2025 01/20/2021, 12/19/2020 [facility]-Influenza Vaccine (#1) 2025 02/15/2020 [...] this topic Insurance [employer] Care Teams Passenger Attendant Relationship Specialty Start Date End Date Ronna Rainey APRN [address] [place] [address] PCP - General 04/16/24
--- NOTE | 2025-02-23 13:41 | ED_ITS ---
<Statement entered by Cristobal Herron DO - 02/24/25 07:30> I was consulted by the MARIA ELENA, and we discussed the complexity of problems being addressed. I approved the treatment and management plan for this patient's care in the emergency department, thus performing a substantive portion of the medical decision making. Cristobal Herron DO Discharge Plan Disposition Patient Disposition: Home, Self-Care Condition: Good Prescriptions Prescriptions: No Action omeprazole 20 mg capsule,delayed release(DR/EC) 20 mg PO DAILY Patient Comments: TAKE ONE CAPSULE BY MOUTH DAILY FOR 60 DAYS levocetirizine [Xyzal] 5 mg tablet 5 mg PO DAILY Ubrelvy 100 mg tablet 100 mg PO ONCE PRN Patient Comments: take 1 tablet by mouth once As Needed for migraine headache ropinirole 0.5 mg tablet 1 mg PO HS Patient Comments: Take 1 to 2 tablets every day at bedtime as needed for restless legs metformin 500 mg tablet extended release 24 hr 500 mg PO ONCE Patient Comments: TAKE ONE TABLET BY MOUTH EVERY DAY fluoxetine [Prozac] 40 mg capsule 40 mg PO DAILY Qty: 30 2RF mupirocin 2 % ointment 1 applic topical BID 7 Days Qty: 15 0RF Referrals Follow up/Referrals: Mini Jacobo APRN [Primary Care Provider, Medical] - See instructions Activity Restrictions/Add. Instructions Additional Instructions/Restrictions: Please return to the emergency department with any worsening signs or symptoms. Please continue to take all your medication as prescribed. Please utilize [id number] cold and flu medication as needed for symptomatic relief. Utilize [id number] anti-inflammatory medication such as ibuprofen and Tylenol as needed. Please follow-up with your PCP in the upcoming days/weeks. Clinical Impressions Clinical Impression: Atypical chest pain, Acute viral syndrome Instructions Patient Instructions: DI for Atypical Chest Pain, DI for Viral Pharyngitis, DI for Viral Syndrome Print Language Print Language: Turkish Discharge ED Provider: Cristobal Herron HPI <CELSO Vicente - Last Filed: 02/23/25 17:39> General Chief Complaint: Chest Pain Stated Complaint: Chest Pain Time Seen by Provider: 02/23/25 13:22 Mode of Arrival: Ambulatory Source of Information: Patient Description of Symptoms (Recalled from ER Triage Doc. by RN): pt to the ED with chest pain that radiates across her anterior chest. pt reports she is curently being treated for strep and has been on amoxicillin since yesterday. pt also reported being week and shaky. pt POC glucose checked at this time and is 81. History of Present Illness HPI narrative: 34-year-old female presents the emergency department with chest pain that radiates into the left shoulder, this started approximate 1.5 hours ago when the patient was walking up a hill , patient scribes initially as a 5 out of 10, currently a 4-5 out of 10, patient admits to subjective fever chills nonproductive cough, fatigue, weakness, shaky and congestion for the last 2 days, as well as some ongoing left shoulder pain for the last 2 days, no trauma or injury per history, patient denies any neck pain, no numbness or tingling of the left or right upper extremity, no radicular type symptomatology. Patient was seen by her PCP twice, and had a negative rapid antigen swabs for COVID flu and strep, patient however was subsequently treated clinically for strep , with amoxicillin, patient is been taking the medication as prescribed for 1 day, she endorses diarrhea for the last 2 days, denies 1 episode nausea and vomiting 2 days ago, she admits to some shortness of breath, denies any real abdominal pain, denies any urinary type symptomatology, denies any hematuria melena hematochezia or hematemesis, patient denies any alcohol tobacco or drug use, other past medical history is consistent with migraines, anxiety/depression, restless leg syndrome, GERD. Initial triage vitals are unremarkable. Please note that above description of symptoms, in this electronic medical record under categorization of recalled from ER triage doctor by RN are reflective of an initial nursing assessment, however, is not reflective of my full history and physical exam that was personally taken and clarified. Consequentially, this preceding description of symptoms, which may include the patient's categorized chief complaint in the EMR, do not reflect my personal clinical impression, and the ultimate description of history of present illness and patient stated complaints should be deferred to this section of the note. Unless stated otherwise or congruent with this section of the note, additional signs, symptoms, or incongruence should be interpreted as inaccurate with my clinical impression. complaint: chest pain Onset (ago): hour(s) Related Data Home Medications ?Medication ?Instructions ?Recorded ?Confirmed levocetirizine 5 mg tablet (Xyzal) 5 mg PO DAILY 04/1412/30/24 omeprazole 20 mg capsule,delayed 20 mg PO DAILY 12/30/24 release ubrogepant 100 mg tablet (Ubrelvy) 100 mg PO ONCE PRN 04/14/24 12/30/24 metformin 500 mg tablet,extended 500 mg PO ONCE 12/30/24 release 24 hr ropinirole 0.5 mg tablet 1 mg PO HS 09/14/24 12/30/24 Previous Rx's ?Medication ?Instructions ?Recorded fluoxetine 40 mg capsule (Prozac) 40 mg PO DAILY #30 c aps 04/08/23 mupirocin 2 % topical ointment 1 applic topical BID 7 days #15 12/30/24 grams Allergies Allergy/AdvReac Type Severity Reaction Status Date / Time azithromycin (AZITHROMYCIN) Allergy Mild Unknown Verified 12/30/24 18:32 allergy reaction latex (LATEX) Allergy Mild Unknown Verified 12/30/24 18:32 allergy reaction cefdinir Allergy Unknown Verified 12/30/24 18:32 allergy reaction PFS <CELSO Vicente - Last Filed: 02/23/25 17:39> [facility] Disclaimer: The information contained in this section may have been updated after the patient was seen, as this information can be updated by other users. 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 , SECTIONIZER) Dizziness of unknown cause TMJ (temporomandibular joint syndrome) Hypothyroidism Depression Anxiety Gestational diabetes Seasonal allergies Surgical History , SECTIONIZER) History of tubal ligation History of Family History , SECTIONIZER) Hypertension Mother Father Thyroid disorder Mother Social History , SECTIONIZER) Smoking Status: Unknown if ever smoked alcohol intake: never substance use type: denies use current occupational status: employed Travel in the last 8 weeks?: None housing: house Have you lived/traveled outside US in past 30 days?: No Contact w/someone who lives/traveled outside US past 30 days?: No Exposure to someone with infectious disease in past 14 days?: No Do you have a fever (greater than 100.4 F or 38 C)?: No Have you tested positive for COVID-19?: No Exposed to someone with COVID-19 in past 14 days?: No Do you have a sore throat?: No Do you have a cough?: No Do you have any weakness?: No Do you have any diarrhea?: No Are you experiencing any unusual bleeding?: No Do you have any muscle aches/pain?: No Do you have any abdominal pain?: No Are you experiencing loss of taste or smell?: No Other 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 Have you received the Flu Vaccine for this season: No Have you received the Pneumonia Vaccine: No <CELSO Vicente - Last Filed: 02/23/25 17:39> ROS Obtained: Yes All systems reviewed & no additional complaints except as documented Physical Exam <CELSO Vicente - Last Filed: 02/23/25 17:39> General General appearance: alert and in no apparent distress Head Head exam: atraumatic and normocephalic Eye Eye exam: Present normal appearance, PERRL and EOMI Neck Neck exam: Present full ROM; Absent meningismus Chest Chest inspection: Present normal inspection; Absent tenderness Respiratory Respiratory exam: Absent respiratory distress, wheezes, stridor, accessory muscle use or prolonged expiratory phase Cardiovascular Cardiovascular exam: Present normal rhythm and other (Pulses equal and symmetric in bilateral upper and lower extremities) Abdominal Exam Abdominal exam: Absent distention, tenderness, guarding or rebound Extremities Exam Extremities exam: Present normal inspection, full ROM and other (Patient moves remedies to command, negative left shoulder exam, no pain to palpation to the left shoulder, otherwise neurovascular intact.); Absent tenderness or edema Neurological Exam Neurological exam: Present alert Psychiatric Psychiatric exam: Present normal affect Skin Skin exam: Present warm and dry HEART Score <CELSO Vicente - Last Filed: 02/23/25 17:39> HEART Score HEART Score assessment performed?: Yes HEART Score: 1 <Jayesh Ngo MD - Last Filed: 02/23/25 17:42> HEART Score History (anamnesis): Slightly suspicious ECG: Normal Age: <45 years Risk factors: No known risk factors Troponin: </= normal limit HEART Score: 0 Critical Care <CELSO Vicente - Last Filed: 02/23/25 17:39> Critical Care Time Critical Care Time: No Medical Decision Making <CELSO Vicente - Last Filed: 02/23/25 17:39> Medical Records Medical records reviewed: Yes I reviewed the patient's medical records. Burton Inquiry Pt receiving controlled substance: Yes Burton was queried for this patient: No Reason not queried -: Emergent pt cond-no time Risks and benefits of using a controlled substance: were discussed with pt by me Vital Signs Vital Signs: 02/23/25 13:12 02/23/25 15:14 02/23/25 15:30 Temperature 98.6 F Temperature Source Oral Pulse Rate 60 62 Pulse Rate [Left Radial] 82 Respiratory Rate 16 Blood Pressure 119/68 111/71 Blood Pressure [Right Arm] 144/92 H Blood Pressure Mean [Right Arm] 109 Blood Pressure Source [Right Arm] Automatic Cuff Blood Pressure Position [Right Arm] Sitting 02 Sat by Pulse Oximetry 100 95 96 Oxygen Delivery Method Room Air Lab Data Lab results reviewed: Yes I reviewed the patient's lab results. Labs: Lab Results 02/23/25 13:32: WBC 10.8, RBC 5.42 H, Hgb 13.5, Hct 42.0, MCV 77.5 L, MCH 24.9 L , MCHC 32.1, RDW 14.3, Plt Count 330, MPV 9.1, Neut % (Auto) 49.1, Lymph % (Auto) 42.5, [place] % (Auto) 6.5, Eos % (Auto) 1.3, Baso % (Auto) 0.4, Neut # (Auto) 5.3, Lymph # (Auto) 4.6 H, [place] # (Auto) 0.7, Eos # (Auto) 0.1, Baso # (Auto) 0.0, PT 10.9, INR 0.98, D-Dimer 0.55 H, Sodium 137, Potassium 4.0, Chloride 100, Carbon Dioxide 30, Anion Gap 11.0, BUN 15, Creatinine 0.80, Estimated Creat Clear 134, Estimated GFR 82, Est GFR ( Amer) 99, Glucose 96, Calcium 9.0, Magnesium 1.9, Total Bilirubin 0.6, AST 29, ALT 27, Alkaline Phosphatase 130 H, Troponin I < 0.01, NT-Pro-B Natriuret Pep < 20.0, Total Protein 7.1, Albumin 4.0, Globulin 3.1, Albumin/Globulin Ratio 1.3, Lipase 171, Serum HCG, Qual Negative 02/23/25 16:25: Troponin I < 0.01 02/23/25 13:32 02/23/25 13:32 Response Orders (Tests/Meds): ED MEDICATIONS Discontinued Medications Generic Name Dose Route Start Last Admin Trade Name Milvia PRN Reason Stop Dose Admin Aspirin 324 mg 02/23/25 13:38 02/23/25 14:02 Aspirin 81mg Chewable Tablet PO 02/23/25 13:39 324 mg ONCE ONE Administration Morphine Sulfate 2 mg 02/23/25 14:02 02/23/25 14:08 Morphine 2mg/Ml Syringe IV 02/23/25 14:03 2 mg ONCE ONE Administration Ondansetron HCl 4 mg 02/23/25 13:38 02/23/25 14:02 Ondansetron 4mg/2ml Vial IV 02/23/25 13:39 4 mg ONCE ONE Administration ORDERS Category Date Time Status XR chest portable Stat Exams 02/23/25 13:32 Completed XR shoulder LT min 2V Stat Exams 02/23/25 13:49 Completed Complete Blood Count Auto Diff Stat Lab 02/23/25 13:32 Completed Comprehensive Metabolic Panel Stat Lab 02/23/25 13:32 Completed D-Dimer Stat Lab 02/23/25 13:32 Completed HCG Qualitative, Serum Stat Lab 02/23/25 13:32 Completed Lipase Stat Lab 02/23/25 13:32 Completed Magnesium Stat Lab 02/23/25 13:32 Completed NT Pro Brain Natriuretic Pep. Stat Lab 02/23/25 13:32 Completed PT INR [Prothrombin Time INR] Stat Lab 02/23/25 13:32 Completed Troponin I Q3H Lab 02/23/25 16:25 Completed Troponin I Q3H Lab 02/23/25 19:45 Ordered Troponin I Stat Lab 02/23/25 13:32 Completed MDM Narrative Medical Decision Narrative: 34-year-old female presents the emergency department with multiple chief complaints, chest pain for 1.5 hours, is most notable, see HPI for detailed past medical history differential diagnose include but not limited to, acute bronchitis, viral syndrome, shoulder impingement syndrome, shoulder sprain/strain, pneumothorax, pleurisy, costochondritis, pneumonia, PE, cardiac arrhythmia, electrolyte disturbance, ACS, anxiety reaction, panic attack among others. I discussed patient's case with the attending physician Dr. Herron Will obtain basic laboratory studies, EKG, CXR, left shoulder x-ray, D-dimer, hCG qualitative, lipase level magnesium level proBNP PT/INR, troponin, will give 324 mg p.o. aspirin, 2 mg IV morphine and 4 mg IV Zofran for pain and nausea. CBC notable for decreased MCV at 77.5, which is in line with the patient's baseline. hCG serum qualitative is negative Initial troponin is less than 0.01 proBNP within normals, lipase level within normal limits ALP is minimally elevated at 130 otherwise unremarkable CMP. Coags within normal limits I reviewed the patient's chest x-ray and left shoulder x-ray along with corresponding radiologic report, no acute bony abnormality the left shoulder, there is no acute cardiopulmonary process. D-dimer 0.55, utilizing years algorithm for pulmonary embolism, pulmonary embolism is excluded. Repeat troponin is less than 0.01. I discussed all results with the patient family bedside patient family are in agreement with current treatment plan/discharge plan. Patient will follow-up with PCP and the other providers in the coming days/weeks. Patient's symptomatology is improved upon discharge. Most likely viral syndrome, versus pleurisy, in the setting of the patient's recent viral infection. Patient will continue take all medication as prescribed. Strict return precautions given. <Jayesh Ngo MD - Last Filed: 02/23/25 17:42> Vital Signs Vital Signs: 02/23/25 13:12 02/23/25 15:14 02/23/25 15:30 Temperature 98.6 F Temperature Source Oral Pulse Rate 60 62 Pulse Rate [Left Radial] 82 Respiratory Rate 16 Blood Pressure 119/68 111/71 Blood Pressure [Right Arm] 144/92 H Blood Pressure Mean [Right Arm] 109 Blood Pressure Source [Right Arm] Automatic Cuff Blood Pressure Position [Right Arm] Sitting 02 Sat by Pulse Oximetry 100 95 96 Oxygen Delivery Method Room Air Lab Data Labs: Lab Results 02/23/25 13:32: WBC 10.8, RBC 5.42 H, Hgb 13.5, Hct 42.0, MCV 77.5 L, MCH 24.9 L , MCHC 32.1, RDW 14.3, Plt Count 330, MPV 9.1, Neut % (Auto) 49.1, Lymph % (Auto) 42.5, [place] % (Auto) 6.5, Eos % (Auto) 1.3, Baso % (Auto) 0.4, Neut # (Auto) 5.3, Lymph # (Auto) 4.6 H, [place] # (Auto) 0.7, Eos # (Auto) 0.1, Baso # (Auto) 0.0, PT 10.9, INR 0.98, D-Dimer 0.55 H, Sodium 137, Potassium 4.0, Chloride 100, Carbon Dioxide 30, Anion Gap 11.0, BUN 15, Creatinine 0.80, Estimated Creat Clear 134, Estimated GFR 82, Est GFR ( Amer) 99, Glucose 96, Calcium 9.0, Magnesium 1.9, Total Bilirubin 0.6, AST 29, ALT 27, Alkaline Phosphatase 130 H, Troponin I < 0.01, NT-Pro-B Natriuret Pep < 20.0, Total Protein 7.1, Albumin 4.0, Globulin 3.1, Albumin/Globulin Ratio 1.3, Lipase 171, Serum HCG, Qual Negative 02/23/25 16:25: Troponin I < 0.01 Response Orders (Tests/Meds): ED MEDICATIONS Discontinued Medications Generic Name Dose Route Start Last Admin Trade Name Milvia PRN Reason Stop Dose Admin Aspirin 324 mg 02/23/25 13:38 02/23/25 14:02 Aspirin 81mg Chewable Tablet PO 02/23/25 13:39 324 mg ONCE ONE Administration Morphine Sulfate 2 mg 02/23/25 14:02 02/23/25 14:08 Morphine 2mg/Ml Syringe IV 02/23/25 14:03 2 mg ONCE ONE Administration Ondansetron HCl 4 mg 02/23/25 13:38 02/23/25 14:02 Ondansetron 4mg/2ml Vial IV 02/23/25 13:39 4 mg ONCE ONE Administration ORDERS Category Date Time Status XR chest portable Stat Exams 02/23/25 13:32 Completed XR shoulder LT min 2V Stat Exams 02/23/25 13:49 Completed Complete Blood Count Auto Diff Stat Lab 02/23/25 13:32 Completed Comprehensive Metabolic Panel Stat Lab 02/23/25 13:32 Completed D-Dimer Stat Lab 02/23/25 13:32 Completed HCG Qualitative, Serum Stat Lab 02/23/25 13:32 Completed Lipase Stat Lab 02/23/25 13:32 Completed Magnesium Stat Lab 02/23/25 13:32 Completed NT Pro Brain Natriuretic Pep. Stat Lab 02/23/25 13:32 Completed PT INR [Prothrombin Time INR] Stat Lab 02/23/25 13:32 Completed Troponin I Q3H Lab 02/23/25 16:25 Completed Troponin I Q3H Lab 02/23/25 19:45 Ordered Troponin I Stat Lab 02/23/25 13:32 Completed MDM Narrative Medical Decision Narrative: 34-year-old female presents the emergency department with multiple chief complaints, chest pain for 1.5 hours, is most notable, see HPI for detailed past medical history differential diagnose include but not limited to, acute bronchitis, viral syndrome, shoulder impingement syndrome, shoulder sprain/strain, pneumothorax, pleurisy, costochondritis, pneumonia, PE, cardiac arrhythmia, electrolyte disturbance, ACS, anxiety reaction, panic attack among others. I discussed patient's case with the attending physician Dr. Herron Will obtain basic laboratory studies, EKG, CXR, left shoulder x-ray, D-dimer, hCG qualitative, lipase level magnesium level proBNP PT/INR, troponin, will give 324 mg p.o. aspirin, 2 mg IV morphine and 4 mg IV Zofran for pain and nausea. CBC notable for decreased MCV at 77.5, which is in line with the patient's baseline. hCG serum qualitative is negative Initial troponin is less than 0.01 proBNP within normals, lipase level within normal limits ALP is minimally elevated at 130 otherwise unremarkable CMP. Coags within normal limits I reviewed the patient's chest x-ray and left shoulder x-ray along with corresponding radiologic report, no acute bony abnormality the left shoulder, there is no acute cardiopulmonary process. D-dimer 0.55, utilizing years algorithm for pulmonary embolism, pulmonary embolism is excluded. Repeat troponin is less than 0.01. I discussed all results with the patient family bedside patient family are in agreement with current treatment plan/discharge plan. Patient will follow-up with PCP and the other providers in the coming days/weeks. Patient's symptomatology is improved upon discharge. Most likely viral syndrome, versus pleurisy, in the setting of the patient's recent viral infection. Patient will continue take all medication as prescribed. Strict return precautions given. I was consulted by the MARIA ELENA, and we discussed the complexity of the problems being addressed. I approved the treatment and management plan for this patient's care in the emergency department, thus performing a substantive portion of the medical decision making. Jyaesh Ngo MD
[2025-02-23 13:49] LABS: Hematocrit 42.0 % (37.0-47.0); Hemoglobin 13.5 g/dL (12.2-16.2); Immature Granulocytes % 0.2 %; Mean Corpuscular HGB Conc 32.1 g/dL (31.8-35.4); Mean Corpuscular Hemoglobin 24.9 pg (27.0-31.2); Mean Corpuscular Volume 77.5 fl (81-99); Nucleated Red Blood Cells % 0 %; Platelet Count 330 K/mm3 (142-424); Red Blood Count 5.42 M/mm3 (4.20-5.40); Red Cell Distribution Width-SD 39.6 fL; White Blood Count 10.8 K/mm3 (4.8-10.8)
--- NOTE | 2025-02-23 13:49 | XR_ITS ---
FINAL REPORT CLINICAL HISTORY: Left shoulder pain COMPARISON: None FINDINGS: LEFT SHOULDER Three views of the left shoulder were obtained. There is no acute fracture or dislocation. Visualized joint spaces are normally aligned. Soft tissues are unremarkable. IMPRESSION: No acute bony abnormality. Reviewed, Interpreted and Dictated by Arden Sood MD Transcribed by Qing Richter Authenticated and [facility]
[2025-02-23 13:50] LABS: HCG Qualitative, Serum Negative (Negative)
[2025-02-23] MEDS: ASPIRIN 81MG CHEWABLE TABLET 324 MG PO (14:02)
[2025-02-23] MEDS: ONDANSETRON 4MG/2ML VIAL 4 MG IV (14:02)
[2025-02-23 14:08] LABS: Lipase 171 U/L (23-300); Magnesium 1.9 mg/dl (1.6-2.3)
[2025-02-23] MEDS: MORPHINE 2MG/ML SYRINGE 2 MG IV (14:08)
[2025-02-23 14:09] LABS: Alanine Aminotransferase 27 U/L (12-78); Albumin Level 4.0 g/dl (3.5-5.0); Albumin/Globulin Ratio 1.3 (1.1-1.8); Alkaline Phosphatase 130 U/L (38-126); Anion Gap 11.0 mEq/L (5-15); Aspartate Amino Transferase 29 U/L (14-36); Bilirubin,Total 0.6 mg/dl (0.2-1.3); Blood Urea Nitrogen 15 mg/dl (7-17); Calcium 9.0 mg/dl (8.4-10.2); Carbon Dioxide 30 mmol/L (22.0-30.0); Chloride 100 mmol/L (98-107); Creatinine Clearance Estimated 134 mL/min (50-200); Creatinine,Serum 0.80 mg/dl (0.52-1.04); Estimated Glomerular Filt Rate 82 ml/min (>60); GFR (African American) 99 ML/MIN (>60); Globulin 3.1 g/dL (1.3-3.2); Glucose 96 mg/dl (74-100); Potassium 4.0 mmoL/L (3.5-5.1); Sodium 137 mmol/L (136-145); Total Protein,Serum 7.1 g/dl (6.3-8.2)
[2025-02-23 14:12] LABS: INR 0.98 (0.9-1.1); Prothrombin Time 10.9 seconds (10.1-12.5)
[2025-02-23 14:17] LABS: NT Pro Brain Natriuretic Pep. < 20.0 pg/mL (0-125)
[2025-02-23 14:22] LABS: Troponin I < 0.01 ng/ml (0.00-0.034)
[2025-02-23 15:13] LABS: D-Dimer 0.55 ug/mL (0.0-0.5)
[2025-02-23 15:14] VITALS: BP 119/68; PULSE 60; O2SAT 95
[2025-02-23 15:30] VITALS: BP 111/71; PULSE 62; O2SAT 96
[2025-02-23 17:34] LABS: Troponin I < 0.01 ng/ml (0.00-0.034)
[2025-02-23 17:43] VITALS: BP 118/79; PULSE 78; RESP 18; TEMP 36.8; O2SAT 97
== END 2025-02-23 17:47 | disposition home or self-care (01) ==
PROVIDERS: Physician Assistant; Emergency Provider Student in an Organized Health Care Education/Training Program; PCP Nurse Practitioner Family
DX: R07.9 Chest pain, unspecified (principal); B34.9 Viral infection, unspecified
CPT/HCPCS: 71045; 73030; 80053; 83690; 83735; 83880; 84484; 84703; 85025; 85378; 85610; 93005; 96374; 96375; 99285; J2270; J2405

== ENCOUNTER 2025-03-09 17:34 | Emergency (ER) | payer MEDICAID, SELFPAY ==
[2025-03-09 17:39] VITALS: BP 147/99; PULSE 87; RESP 18; TEMP 37.3; O2SAT 98; BMI 38.3
--- OUTSIDE RECORDS SUMMARY | 2025-03-09 17:49 | XMS_ITS | Encounter Summary ---
Author Organization [facility] Address [address] [id number] Care Team Providers Care Senior Analytical Chemist Name Role Phone Unavailable Primary Care Provider Unavailabl e Reason for Referral * Consultation (Routine) - Authorized Specialty Diagnoses / Procedures Referred By Justus t Referred To Contact Dermatology Diagnoses Rash and other nonspecific skin eruption Order, Transcribe [facility] Medical Specialties Dermatology [address] [place] [address] Phone: tel: fax: Referral ID Status Reason Start Date Expiration Date Visits Requested Visits Authorized [id number] Authorized Specialty Services Required 02/25/2025 02/25/2026 1 1 Encounter Details Date Type Department Care Team (Late st Contact Info) Description 02/25/2025 Transcribe Orders Patient Access Center [address] [place] [address] Order, Transcribe Rash and other nonspecific skin eruption (Primary Dx) Social History Tobacco Use Types Packs/Day Years Used Date Smoking Tobacco: Never Assessed Comments Unknown Sex and Gender Information Value Date Recorded Sex Assigned at Not on file Legal Sex Female 10:55 AM EDT Gender Identity Not on file Sexual Orientation Not on file documented as of this encounter Plan of Treatment Scheduled Referrals Name Type Priority Associated Diagnoses Orde r Schedule Ambulatory referral to Dermatology Outpatient Referral Routine Rash and other nonspecific skin eruption Ordered: 02/25/2025 documented as of this encounter Visit Diagnoses Diagnosis Rash and other nonspecific skin eruption- Primary documented in this encounter
--- OUTSIDE RECORDS SUMMARY | 2025-03-09 17:49 | XMS_ITS | Clinical Summary ---
Author Organization [facility] Address [address] [place] [address] Care Team Providers Care Plastics Worker Name Role Phone Unavailable Primary Care Provider Unavailabl e Encounters Date Type Department Care Team Description 02/25/2025 Transcribe Orders Patient Access Center [address] [place] [address] Order, Transcribe Rash and other nonspecific skin eruption (Primary Dx) from Last 3 Months Social History Tobacco Use Types Packs/Day Years Used Date Smoking Tobacco: Never Assessed Comments Unknown Sex and Gender Information Value Date Recorded Sex Assigned at Not on file Legal Sex Female 10:55 AM EDT Gender Identity Not on file Sexual Orientation Not on file Plan of Treatment Health Maintenance Due Date Last Done Comments HEP C SCREENING 1990 PAP SMEAR EVERY 3 YR (Cervic al Cancer Screen) 1990 ANNUAL WELLNESS EXAM 1993 DTAP/TDAP/TD VACCINE (1 - Tdap) 2009 INFLUENZA VACCINE (#1) 2025 HEP A VACCINE Aged Out No longer elig ible based on patient's age to complete this topic HIB VACCINE Aged Out No longer eligi ble based on patient's age to complete this topic ROTOVIRUS VACCINE Aged Out No longer eligible based on patient's age to complete this topic Insurance [employer]
--- OUTSIDE RECORDS SUMMARY | 2025-03-09 17:49 | XMS_ITS | Clinical Summary ---
Author Organization [facility] Address [address] [place] [id number] Care Team Providers Care Fruit Grader Operator Name Role Phone Ronna Rainey APRN Primary Care Provider + [phone] Encounters Date Type Department Care Team Description [...] Date Last Done Comments [facility]-Depression Screening 1990 [facility]-Infant/Child/Adol SDOH Screenings 1990 [facility]-Varicella Vaccines (1 of 2 - 13+ 2-dose series) 11/14/2003 [facility]- SDOH Screenings 2008 [facility]-Adult SDOH Screenings 2008 [facility]-Hepatitis B Vaccines (1 of 3 - 19+ 3-dose series) 2009 [facility]-Pap Smear 11/14/2011 HPV Vaccines (1 - 3-dose SCDM series) 2017 [facility]-Cervical Cancer Screening 2020 [facility]-HPV/Cotest 2020 [facility]-DTaP,Tdap,and Td Vaccines (2 - Td or Tdap) 02/10/2023 02/10/2013 [id number] Vaccine (3 - 2024- season) 2025 01/20/2021, [...] this topic Insurance [employer] Care Teams Fruit Grader Operator Relationship Specialty Start Date End Date Ronna Rainey APRN [address] [place] [address] PCP - General 04/16/24
--- OUTSIDE RECORDS SUMMARY | 2025-03-09 17:49 | XMS_ITS | Encounter Summary ---
Author Organization Address [address] [place] [address] Care Team Providers Care Intranet Support Name Role Phone Ronna Rainey APRN Primary Care Provider [phone] Reason for Referral * Consultation (Routine) - Authorized Specialty Diagnoses / Procedures Referred By Contac t Referred To Contact Neurology Diagnoses Intractable chronic migraine without aura and without status migrainosus Irina Troncoso MD [address] [facility] [address] [place] [address] Phone: tel: fax: Referral ID Status Reason Start Date Expiration Date Visits Requested Visits Authorized [id number] Authorized Specialty Services Required 10/15/2025 1 1 Encounter Details Date Type Department Care Team (Late st Contact Info) Description 04/15/2024 Community [facility] [address] [place] [address] Irina Troncoso MD [address] [place] [address] Intractable chronic migraine without aura and [...] Primary documented in this encounter Care Teams Intranet Support Relationship Specialty Start Date End Date Ronna Rainey, WILFRIDO [address] [place] [address] PCP - General 04/16/24 documented as of this encounter
[2025-03-09 18:00] VITALS: BP 135/90; PULSE 68; O2SAT 98
[2025-03-09] MEDS: 0.9 % SODIUM CHLORIDE 1000ML 1,000 ML 999 ML IV (18:02)
[2025-03-09] MEDS: ACETAMINOPHEN 500MG TAB 1000 MG PO (18:02)
[2025-03-09] MEDS: MAGNESIUM SULFATE IN WATER 2 GM/50 ML PIGGYBACK IV (18:03)
--- NOTE | 2025-03-09 18:09 | ED_ITS ---
<Statement entered by Cristobal Herron DO - 03/10/25 01:31> I was consulted by the MARIA ELENA, and we discussed the complexity of problems being addressed. I approved the treatment and management plan for this patient's care in the emergency department, thus performing a substantive portion of the medical decision making. Cristobal Herron DO Discharge Plan Disposition Patient Disposition: Home, Self-Care Prescriptions Prescriptions: No Action omeprazole 20 mg capsule,delayed release(DR/EC) 20 mg PO DAILY Patient Comments: TAKE ONE CAPSULE BY MOUTH DAILY FOR 60 DAYS levocetirizine [Xyzal] 5 mg tablet 5 mg PO DAILY Ubrelvy 100 mg tablet 100 mg PO ONCE PRN Patient Comments: take 1 tablet by mouth once As Needed for migraine headache ropinirole 0.5 mg tablet 1 mg PO HS Patient Comments: Take 1 to 2 tablets every day at bedtime as needed for restless legs metformin 500 mg tablet extended release 24 hr 500 mg PO ONCE Patient Comments: TAKE ONE TABLET BY MOUTH EVERY DAY fluoxetine [Prozac] 40 mg capsule 40 mg PO DAILY Qty: 30 2RF mupirocin 2 % ointment 1 applic topical BID 7 Days Qty: 15 0RF Referrals Follow up/Referrals: Mini Jacobo APRN [Primary Care Provider, Medical] - See instructions Activity Restrictions/Add. Instructions Additional Instructions/Restrictions: Today you were evaluated in the emergency department for a migraine. You are given multiple medications for your pain. Please follow-up with your PCP for further evaluation. You may take acetaminophen or ibuprofen [id number] as directed for continued pain relief. Please return to the ED for any worsening of your condition. Clinical Impressions Clinical Impression: Migraine without aura or status migrainosus Qualifiers: Intractability: intractable Qualified Code(s): G43.019 - Migraine without aura, intractable, without status migrainosus Instructions Patient Instructions: DI for Migraine Print Language Print Language: Burmese Discharge ED Provider: Cristobal Herron General Adult HPI General Chief complaint: Headache Stated complaint: Migraine, nauseated, sick, neck hurting Time Seen by Provider: 03/09/25 17:42 Mode of Arrival: Ambulatory Source of Information: Patient Description of Symptoms (Recalled from ER Triage Doc. by RN): patient presents for a migraine and neck pain. paientet stated she has a history of migraines and takes prescribed medication for it but hasnt taken any today. patient has dental work done today as well. patient has light sensitivity and is sensitive to sounds. History of Present Illness HPI narrative: patient is a 34-year-old female PMHx migraines, TMJ, who presents to the ED for complaints of a migraine that started this morning. Patient states she was at the dentist having a small procedure performed when her migraine started after she had to hold her mouth open for prolonged period of time. Related Data Home Medications ?Medication ?Instructions ?Recorded ?Confirmed levocetirizine 5 mg tablet (Xyzal) 5 mg PO DAILY 04/1412/30/24 omeprazole 20 mg capsule,delayed 20 mg PO DAILY 12/30/24 release ubrogepant 100 mg tablet (Ubrelvy) 100 mg PO ONCE PRN 04/14/24 12/30/24 metformin 500 mg tablet,extended 500 mg PO ONCE 12/30/24 release 24 hr ropinirole 0.5 mg tablet 1 mg PO HS 09/14/24 12/30/24 Previous Rx's ?Medication ?Instructions ?Recorded fluoxetine 40 mg capsule (Prozac) 40 mg PO DAILY #30 c aps 04/08/23 mupirocin 2 % topical ointment 1 applic topical BID 7 days #15 12/30/24 grams Allergies Allergy/AdvReac Type Severity Reaction Status Date / Time azithromycin (AZITHROMYCIN) Allergy Mild Unknown Verified 12/30/24 18:32 allergy reaction latex (LATEX) Allergy Mild Unknown Verified 12/30/24 18:32 allergy reaction cefdinir Allergy Unknown Verified 12/30/24 18:32 allergy reaction PFSH PFSH Disclaimer: The information contained in this section may have been updated after the patient was seen, as this information can be updated by other users. 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: No Do you have a sore throat?: No Do you have a cough?: No Do you have any weakness?: No Do you have any diarrhea?: No Are you experiencing any unusual bleeding?: No Do you have any muscle aches/pain?: No Do you have any abdominal pain?: No Are you experiencing loss of taste or smell?: No Other 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 Have you received the Flu Vaccine for this season: No Have you received the Pneumonia Vaccine: No ROS Obtained: Yes Systems reviewed as appropriate & no additional complaints except as documented Physical Exam General General appearance: alert and in no apparent distress Head Head exam: atraumatic Eye Eye exam: Present PERRL and EOMI; Absent nystagmus Neck Neck exam: Present full ROM Respiratory Respiratory exam: Present normal lung sounds bilaterally Cardiovascular Cardiovascular exam: Present regular rate Abdominal Exam Abdominal exam: Present soft Extremities Exam Extremities exam: Present full ROM Back Exam Back exam: Present full ROM Neurological Exam Neurological exam: Present alert, oriented X3 and normal gait; Absent motor sensory deficit Skin Skin exam: Present warm and dry Medical Decision Making Medical Records Screening: Per USPSTF and CDC recommendations, given the prevalence of disease in our region, it is our hospital?s policy to screen for HIV and viral Hepatitis for all patients aged 18 and over and those with ongoing risk factors. [place] Inquiry Pt receiving controlled substance: No Vital Signs: 03/09/25 17:39 03/09/25 18:00 03/09/25 18:30 Temperature 99.1 F Temperature Source Temporal Artery Scan Pulse Rate 68 71 Pulse Rate [Right Radial] 87 Respiratory Rate 18 Blood Pressure 135/90 122/77 Blood Pressure [Right Arm] 147/99 H Blood Pressure Mean [Right Arm] 115 Blood Pressure Source [Right Arm] Automatic Cuff Blood Pressure Position [Right Arm] Sitting 02 Sat by Pulse Oximetry 98 98 96 Oxygen Delivery Method Room Air Room Air Room Air 03/09/25 19:30 Temperature 97.9 F Temperature Source Pulse Rate 70 Pulse Rate [Right Radial] Respiratory Rate 20 Blood Pressure 122/76 Blood Pressure [Right Arm] Blood Pressure Mean [Right Arm] Blood Pressure Source [Right Arm] Blood Pressure Position [Right Arm] 02 Sat by Pulse Oximetry Oxygen Delivery Method Room Air Orders (Tests/Meds): ED MEDICATIONS Discontinued Medications Generic Name Dose Route Start Last Admin Trade Name Freq PRN Reason Stop Dose Admin Acetaminophen 1,000 mg 03/09/25 17:51 03/09/25 18:02 Acetaminophen 500mg Tab PO 03/09/25 17:52 1,000 mg ONCE ONE Administration Dexamethasone Sodium Phosphate 10 mg 03/09/25 18:06 03/09/25 18:16 Dexamethasone 4mg/Ml 1ml Vial IV 03/09/25 18:07 10 mg ONCE ONE Administration Diphenhydramine HCl 25 mg 03/09/25 17:51 03/09/25 18:02 Diphenhydramine 50mg/Ml Vial IV 03/09/25 17:52 25 mg ONCE ONE Administration Sodium Chloride 1,000 mls @ 999 mls/hr 03/09/25 17:51 03/09/25 19:28 Sod Chlor 0.9% 1000ml Bag IV 03/09/25 18:51 Infused .Q1H1M ONE Infusion Magnesium Sulfate 2 gm in 50 mls @ 50 mls/hr 03/09/25 17:51 03/09/25 18:44 Magnesium Sulfate 2gm/50ml Premix IV 03/09/25 18:50 Infused ONCE ONE Infusion Ketorolac Tromethamine 15 mg 03/09/25 18:56 03/09/25 19:12 Ketorolac 15mg/Ml Vial IV 03/09/25 18:57 15 mg ONCE ONE Administration Medical Decision Narrative: In summary, patient is a 34-year-old female PMHx migraines, TMJ, who presents to the ED for complaints of a migraine that started this morning. Patient states she was at the dentist having a small procedure performed when her migraine started after she had to hold her mouth open for prolonged period of time. Patient states this feels like her normal migraine, endorses photophobia and phonophobia. Patient has taken Ubrelvy without relief of pain. She has not had Tylenol or Motrin prior to arrival. Upon initial evaluation she is alert, oriented and cooperative. She is hemodynamically stable. Patient is wearing sunglasses, neuroexam is normal. No neck tenderness, full ROM of C-spine. Differential diagnosis include migraine, tension headache, infectious process, among others. Discussed with patient we will proceed with IV fluids, magnesium, Tylenol and Benadryl. I do not feel that patient needs any imaging of her head at this time. Records reviewed, brain MRI from 02/05/2023 was remarkable for a normal study without acute hemorrhagic or ischemic infarct. No evidence of mass. Upon reassessment, patient states her headache is down to a 6 out of 10, will administer Toradol and reassess. Upon second reassessment, patient is sitting up in bed, has her sunglasses off and states that she feels much better. We discussed follow-up with her PCP for further evaluation. We discussed return precautions to the ED. Patient was hemodynamically stable and ambulatory without difficulty from the ED. Critical Care Critical Care Time Critical Care Time: No
[2025-03-09] MEDS: DEXAMETHASONE 4MG/ML 1ML VIAL 10 MG IV (18:16)
[2025-03-09 18:30] VITALS: BP 122/77; PULSE 71; O2SAT 96
[2025-03-09] MEDS: KETOROLAC 15MG/ML VIAL 15 MG IV (19:12)
[2025-03-09 19:30] VITALS: BP 122/76; PULSE 70; RESP 20; TEMP 36.6; O2SAT 98
== END 2025-03-09 19:35 | disposition home or self-care (01) ==
PROVIDERS: Emergency Provider Student in an Organized Health Care Education/Training Program; PCP Nurse Practitioner Family
DX: G43.019 Migraine without aura, intractable, without status migrainosus (principal); M54.2 Cervicalgia; R11.0 Nausea; H53.71 Glare sensitivity; H93.239 Hyperacusis, unspecified ear
CPT/HCPCS: 96365; 96375; 99284; J1100; J1200; J1885; J3475; J7030

== ENCOUNTER 2025-04-03 07:40 | Outpatient (CLI) | payer MEDICAID, SELFPAY ==
--- OUTSIDE RECORDS SUMMARY | 2025-04-03 07:43 | XMS_ITS | Clinical Summary ---
Author Organization [facility] Center Address [address] [place] [address] Care Team Providers Care Animal Laboratory Helper Name Role Phone Unavailable Primary Care Provider Unavailabl e Encounters Date Type Department Care Team Description 02/25/2025 Transcribe Orders Patient [facility] [address] [place] [address] Order, Transcribe Rash and other nonspecific skin eruption (Primary Dx) from Last 3 Months Social History Tobacco Use Types Packs/Day Years Used Date Smoking Tobacco: Never Assessed Comments Unknown Sex and Gender Information Value Date Recorded Sex Assigned at Not on file Legal Sex Female 10:55 AM EDT Gender Identity Not on file Sexual Orientation Not on file Plan of Treatment Upcoming Encounters Date Type Department Care Team (Late st Contact Info) Description 07/29/2025 1:00 PM EST Office Visit [facility] [address] [place] [address] Radha Russell, WILFRIDO [address] [place] [address] Health Maintenance Due Date Last Done Comments [...]
--- OUTSIDE RECORDS SUMMARY | 2025-04-03 07:43 | XMS_ITS | Encounter Summary ---
Author Organization [facility] Address [address] [place] [address] Care Team Providers Care Remote Broadcast Technician Name Role Phone Ronna Rainey APRN Primary Care Provider [phone] Reason for Referral * Consultation (Routine) - Authorized Specialty Diagnoses / Procedures Referred By Contac t Referred To Contact Neurology Diagnoses Intractable chronic migraine without aura and without status migrainosus Irina Troncoso MD [address] [facility] [address] [place] [address] Phone: tel: fax: Referral ID Status Reason Start Date Expiration Date Visits Requested Visits Authorized [id number] Authorized Specialty Services Required 10/15/2025 1 1 Encounter Details Date Type Department Care Team (Late st Contact Info) Description 04/15/2024 Community [facility] [address] [place] [address] Irina Troncoso MD [address] [place] [address] Intractable chronic migraine without aura and [...] Primary documented in this encounter Care Teams Remote Broadcast Technician Relationship Specialty Start Date End Date Ronna Rainey, WILFRIDO [address] [place] [address] PCP - General 04/16/24 documented as of this encounter
--- OUTSIDE RECORDS SUMMARY | 2025-04-03 07:43 | XMS_ITS | Clinical Summary ---
Author Organization [facility] Address [address] [place] [address] Care Team Providers Care Cinder Dump Crane Operator Name Role Phone Ronna Rainey APRN Primary Care Provider [phone] Social History Tobacco Use Types Packs/Day Years [...] (2 - Td or Tdap) 02/10/2023 02/10/2013 [id number] Vaccine (3 - 2024- season) 2025 01/20/2021, [...] this topic Insurance [employer] Care Teams Cinder Dump Crane Operator Relationship Specialty Start Date End Date Ronna Rainey APRN [address] [place] [address] PCP - General 04/16/24
--- OUTSIDE RECORDS SUMMARY | 2025-04-03 07:43 | XMS_ITS | Encounter Summary ---
Author Organization [facility] Address [address] [id number] Care Team Providers Care Tubular Riveter Name Role Phone Unavailable Primary Care Provider Unavailabl e Reason for Referral * Consultation (Routine) - Authorized Specialty Diagnoses / Procedures Referred By Justus t Referred To Contact Dermatology Diagnoses Rash and other nonspecific skin eruption Order, Transcribe [facility] [address] [place] [address] Phone: tel: fax: Referral ID Status Reason Start Date Expiration Date Visits Requested Visits Authorized [id number] Authorized Specialty Services Required 02/25/2025 02/25/2026 1 1 Encounter Details Date Type Department Care Team (Late st Contact Info) Description 02/25/2025 Transcribe Orders Patient Access Center [address] [place] [address] Order, Transcribe Rash and other nonspecific skin eruption (Primary Dx) Social History Tobacco Use Types Packs/Day Years Used Date Smoking Tobacco: Never Assessed Comments Unknown Sex and Gender Information Value Date Recorded Sex Assigned at Not on file Legal Sex Female 10:55 AM EDT Gender Identity Not on file Sexual Orientation Not on file documented as of this encounter Plan of Treatment Upcoming Encounters Date Type Department Care Team (Late st Contact Info) Description 07/29/2025 1:00 PM EST Office Visit [facility] [address] [place] [address] Radha Russell APRN [address] [place] [address] Scheduled Referrals Name Type Priority Associated Diagnoses Orde r Schedule Ambulatory referral to Dermatology Outpatient Referral Routine Rash and other nonspecific skin eruption Ordered: 02/25/2025 documented as of this encounter Visit Diagnoses Diagnosis Rash and other nonspecific skin eruption- Primary documented in this encounter
[2025-04-03 11:25] LABS: Hemoglobin A1C 5.6 % (4.0-6.0)
[2025-04-03 11:59] LABS: Thyroid Stimulating Hormone 1.62 uIU/mL (0.465-4.68)
[2025-04-04 08:10] LABS: FSH 56.4 mIU/mL (.); LH 44.4 mIU/mL (.); Testosterone,Total 20 ng/dL (8-60)
[2025-04-04 11:10] LABS: Insulin Level Total 12.5 uIU/mL (2.6-24.9)
== END 2025-04-03 23:59 | disposition home or self-care (01) ==
PROVIDERS: PCP Nurse Practitioner Family; Visit Provider Obstetrics & Gynecology
DX: N91.1 Secondary amenorrhea (principal)
CPT/HCPCS: 36415; 82627; 82670; 83001; 83002; 83036; 83498; 83525; 84144; 84146; 84403; 84443

== ENCOUNTER 2025-05-07 12:06 | Outpatient (CLI) | payer MEDICAID, SELFPAY ==
[2025-05-09 07:13] LABS: FSH 52.4 mIU/mL (.); LH 38.5 mIU/mL (.)
== END 2025-05-07 23:59 | disposition home or self-care (01) ==
LOC: LAB 12:07
PROVIDERS: PCP Nurse Practitioner Family; Visit Provider Obstetrics & Gynecology
DX: E28.39 Other primary ovarian failure (principal)
CPT/HCPCS: 36415; 82670; 83001; 83002

== ENCOUNTER 2025-05-08 08:36 | Outpatient (CLI) | payer MEDICAID, SELFPAY ==
--- OUTSIDE RECORDS SUMMARY | 2025-05-05 08:06 | XMS_ITS | Encounter Summary ---
Author Organization [facility] Address [address] [place] [address] Care Team Providers Care Button Broacher Name Role Phone Mini Jacobo WILFRIDO Primary Care Provider [phone] Reason for Referral * Consultation (Routine) - Pending Review Specialty Diagnoses / Procedures Referred By Justus arango Referred To Contact Neurology Diagnoses Intractable chronic migraine with aura with status migrainosus Procedures SC OFFICE/OUTPATIENT NEW MODERATE MDM 45 MINUTES Amauri Willis MD [address] [place] [address] Phone: tel: fax: Referral ID Status Reason Start Date Expiration Date Visits Requested Visits Authorized [id number] Pending Review Specialty Services Required 08/04/2026 1 1 Reason for Visit * Reason Comments Migraine Encounter Details Date Type Department Care Team (Late Contact Info) Description 05/05/2025 8:06 AM EST - 05/05/2025 10:54 AM EST Emergency [facility] EMERGENCY DEPARTMENT [address] [phone] Amauri Willis MD [address] [place] [address] Intractable chronic migraine with aura with status migrainosus (Primary Dx) Discharge Disposition: Home or Self Care Social History Tobacco Use Types Packs/Day Years Used Date Smoking Tobacco: Never Smokeless Tobacco: Never Alcohol Use Standard Drinks/Week Comments Never 0 (1 standard drink = 0.6 oz pur e alcohol) AUDIT-C Answer Date Recorded Q1: How often do you have a drink containing alc ohol? Never 05/06/2020 Average Number of Drinks Not on file 020 Frequency of Binge Drinking Not on file 04/26 Abuse Screen Answer Date Recorded Feels Unsafe at Home or Work/School no 05/05/2025 Feels Threatened by Someone no 04/26 Does Anyone Try to Keep You From Having Contact with Others or Doing Things Outside Your Home? no 05/05/2025 Physical Signs of Abuse Present no 05/05/2025 Housing Stability Answer Date Recorded Current Living Arrangements Not on file 01/2023 Potentially Unsafe Housing Conditions Not on ivan e 03/04/2023 Family and Community Support Answer Brady e Recorded Help with Day-to-Day Activities Not on file 03/04/2023 Lonely or Isolated Not on file 03/04/2023 Employment Answer Date Recorded Do you want help finding or keeping work or a rashmi b? Not on file 03/04/2023 Disabilities Answer Date Recorded Concentrating, Remembering, or Making Decisions Difficulty Not on file 03/04/2023 Doing Errands Independently Difficulty Not on fi le 03/04/2023 Education Answer Date Recorded Help with school or training? Not on file Preferred Language Not on file 03/04/2023 Comments No Sex and Gender Information Value Date Recorded Sex Assigned at Not on file Legal Sex Female 1:25 PM EDT Gender Identity Not on file Sexual Orientation Not on file documented as of this encounter Last Filed Vital Signs Vital Sign Reading Time Taken Comments Blood Pressure 111/75 05/05/2025 9:00 AM EST Pulse 71 05/05/2025 9:00 AM EST Temperature 36.7 C (98.1 F) 05/05/2025 8:01 AM EST Respiratory Rate 16 05/05/2025 8:01 AM EST Oxygen Saturation 98% 05/05/2025 9:00 AM EST Inhaled Oxygen Concentration - - Weight 85.4 kg (188 lb 4.8 oz) 05/05/2025 8:01 A M EST Height 149.9 cm (4' 11 ) 05/05/2025 8:01 AM EST Body Mass Index 38.03 05/05/2025 8:01 AM EST documented in this encounter Functional Status * Calculated C-SSRS Risk Score (Lifetime/Recent) Answer Date of Assessment Author No Risk Indicated 05/05/2025 8:03 AM Vandana Hewitt RN * [place] Suicide Severity Rating Scale (Screener/Recent Self-Report) Question Answer Date of Assessment Author 1. Wish to be (Past 1 Month) No 025 8:03 AM Vandana Hewitt RN 2. Non-Specific Active Suici sigifredo Thoughts (Past 1 Month) No 05/05/2025 8:03 AM Carol Hewitt ea, RN 6. Suicidal Behavior (Lifetime) No 8:03 AM Vandana Hewitt RN documented as of this encounter Medications at Time of Discharge ferrous sulfate 325 (65 FE) MG tablet Take 1 tablet by mouth Daily. 12/25/2019 fluticasone (FLONASE) 50 MCG/ACT nasal spray 2 sprays into the nostril(s) as directed by provider Daily As Needed. levocetirizine (XYZAL) 5 MG tablet Take 5 mg by mouth Every Evening. 02/15/2020 levothyroxine (SYNTHROID, LEVOTHROID) 50 MCG tablet Take 50 mcg by mouth Every Morning Before Breakfast. 02/15/2020 ondansetron ODT (ZOFRAN-ODT) 4 MG disintegrating tablet DISSOLVE 1 TABLET BY MOUTH BY MOUTH EVERY SIX HOURS 12/16/2019 Pediatric Multivitamins-Iron (FLINTSTONES COMPLETE PO) Take 2 tablets by mouth Daily. documented as of this encounter Miscellaneous Notes * [facility] Provider Note - Amauri Willis MD - 05/05/2025 8:31 AM EST Subjective History of Present Illness: Presents with GARCIA. Has 15y history of migraines. Notes her sx have been worsening over the last 3 yrs. GARCIA developed yesterday in it's normal usual fashion. Pain is more intense than usually. Took ubrelvy without improvement. Sees Karyna for neuro. Looking for second opinion with another neurologist at recommendation from her primary care. Mother at bedside notes patient had MRI 1-2 years ago which as unrevealing. Records are through [facility]. I independently reviewed chart for prior documentation and results: [facility] notes reviewed. Migraines have been suspected to be related to second- hand marijuana, anxiety, stress and suspected bruxism. Workup has been unrevealing. Exam nonfocal. improved with topiramate though patient discontinued med due to brain fog. I do not have any prior MRI reports available in the [facility] Records however Patient disclosed that she has had 1 in the last year and was told it was normal. Nurses Notes reviewed and agree, including vitals, allergies, social history and prior medical history. REVIEW OF SYSTEMS: All systems reviewed and not pertinent unless noted. Past 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: Diagnosis Date Acid reflux Allergic Anxiety Colitis Depression Gestational diabetes mellitus (GDM) 2020 Hypothyroidism dx 2019 Migraines Otitis media Allergies: Latex and Azithromycin Past Surgical History: Procedure Laterality Date SECTION 2014 SECTION PRIMARY 2011 Social History Socioeconomic History Marital status: Legally Tobacco Use Smoking status: Never Smokeless tobacco: Never Substance and Sexual Activity Alcohol use: Never Drug use: Never Sexual activity: Defer Partners: Male Family History Problem Relation Name Age of Onset Obesity Mother Obesity Father Objective Physical Exam: BP 111/75 Pulse 71 Temp 98.1 ??F (36.7 ??C) (Oral) Resp 16 Ht 149.9 cm (59 ) Wt 85.4 kg (188 lb 4.8 oz) SpO2 98% BMI 38.03 kg/m?? Physical Exam Primary Survey Airway: Patent and protected Breathing: Symmetric bilaterally Circulation: Mentating well, responsive Constitutional: appears to be in pain. Psychological: No abnormalities of mood affect. Head: Atraumatic Eyes: Conjunctiva are non-injected. no scleral icterus. ENT: No obvious congestion or obstruction noted Neck: No obvious deformity. ROM appears preserved Chest: No deformity noted. No paradoxical breathing noted Respiratory: Respiratory effort was normal - no use of accessory respiratory muscles noted. There is no stridor. Cardiovascular: Perfusion appears preserved - mentating well RRR no murmurs Gastrointestinal: Abdomen nondistended. Genitourinary: Not examined Lymphatic: Not examined Back: Not examined Musculoskeletal: Musculoskeletal system is grossly intact. There is no obvious deformity. Neurological: Face: No Asymmetry. Gross motor movement is intact in all 4 extremities. Walks and ambulates without difficulty. Patient exhibits normal speech. Skin: No Pallor no obvious bruising. No obvious rash. ED Course: Lab Results (last 24 hours) No results found for the last 24 hours. No radiology results from the last 24 hrs Procedures MDM Initial impression of presenting illness : Vital signs reviewed -nonactionable. Patient has historyof chronic migraines. Development of the symptoms today are within what has been normal for her in the past. She has no trauma to the head. No fevers. No change in vision. No neurologic symptoms or findings outside of GARCIA pain. She has no indication for emergent neurologic imaging at this time. She d esires second opinion and I encouraged her to follow up with a neurologist to meet this goal. Second opinion from the emergency department would be improper as we lack expertise/training in the full spectrum of GARCIA pathology. From an emergent standpoint there is no findings to suggest a new or alternative pathology. No suspicion for CO poisoning. Treating with migraine cocktail. Will refer to neurology if needed. My initial pre-test probability for an emergent process is very low. any diagnostic and therapeutic plan was ordered and interpreted by Angie Willis MD with emphasis on identifying and treating emergent/urgent morbid conditions likely associated with the differential diagnosis with this type of presentation. ED Course as of 05/05/25 1034 SatMay 05, 2025 1033 GARCIA improved. Fundoscopic exam unrevealing on reassessment. Neuro intact. Will dc [MALLORY] ED Course User Index [MALLORY] Amauri Willis MD Medications ketorolac (TORADOL) injection 15 mg (15 mg Intravenous Given 05/05/25 0840) dexAMETHasone (DECADRON) injection 4 mg (4 mg Intravenous Given 05/05/25 0840) droperidol (INAPSINE) injection 2.5 mg (2.5 mg Intravenous Given 05/05/25 0840) HEART SCORE No data recorded ----- ED Disposition ED Disposition Discharge Condition Stable Comment -- Final diagnoses: Intractable chronic migraine with aura with status migrainosus Your Follow-Up Providers Follow-up information has not been specified. Contact information for after-discharge care Follow-up information has not been specified. Your medication list CONTINUE taking these medications Instructions Last Dose Given Next Dose Due ferrous sulfate 325 (65 FE) MG tablet Take 1 tablet by mouth Daily. FLINTSTONES COMPLETE PO Take 2 tablets by mouth Daily. fluticasone 50 MCG/ACT nasal spray Commonly known as: FLONASE 2 sprays into the nostril(s) as directed by provider Daily As Needed. levocetirizine 5 MG tablet Commonly known as: XYZAL Take 5 mg by mouth Every Evening. levothyroxine 50 MCG tablet Commonly known as: SYNTHROID, LEVOTHROID Take 50 mcg by mouth Every Morning Before Breakfast. ondansetron ODT 4 MG disintegrating tablet Commonly known as: ZOFRAN-ODT DISSOLVE 1 TABLET BY MOUTH BY MOUTH EVERY SIX HOURS documented in this encounter Plan of Treatment Scheduled Referrals Name Type Priority Associated Diagnoses Orde r Schedule Ambulatory Referral to Neurology Outpatient Referral Routine Intractable chronic migraine with aura with status migrainosus Ordered: 05/05/2025 documented as of this encounter Visit Diagnoses Diagnosis Intractable chronic migraine with aura with status migrainosus- Primary documented in this encounter Administered Medications Inactive Administered Medications - up to 3 most recent administrations Medication Order MAR Action Action Date Dose Rate Site dexAMETHasone (DECADRON) injection 4 mg 4 mg, Intravenous, Once, On Sat05/05/25 at 0845, For 1 dose, For IV administration. May be pushed over a minimum of 1 minute. Given 05/05/2025 8:40 AM EST 4 mg droperidol (INAPSINE) injection 2.5 mg 2.5 mg, Intravenous, Once, On Sat05/05/25 at 0845, For 1 dose Given 05/05/2025 8:40 AM EST 2.5 mg ketorolac (TORADOL) injection 15 mg 15 mg, Intravenous, Once, On Sat05/05/25 at 0845, For 1 dose, Based on patient request - if ordered for moderate or severe pain, provider allows for administration of a medication prescribed for a lower pain scale. (BKC) If given for pain, use the following pain scale: Mild Pain = Pain Score of 1-3, CPOT 1-2 Moderate Pain = Pain Score of 4-6, CPOT 3-4 Severe Pain = Pain Score of 7-10, CPOT 5-8 Given 05/05/2025 8:40 AM EST 15 mg documented in this encounter Active and Recently Administered Medications Times are shown in EST. Scheduled Medication Order 05/03/2025 05/04/2025 05/05/2025 dexAMETHasone (DECADRON) injection 4 mg (COMPLETED) 4 mg, Intravenous, Once, On Sat05/05/25 at 0845, For 1 dose, For IV administration. May be pushed over a minimum of 1 minute. 0840 (Given - Provid er: Alicia Rowland) droperidol (INAPSINE) injection 2.5 mg (COMPLETED) 2.5 mg, Intravenous, Once, On Sat05/05/25 at 0845, For 1 dose 0840 (Given - Provid er: lAicia Rowland) ketorolac (TORADOL) injection 15 mg (COMPLETED) 15 mg, Intravenous, Once, On Sat05/05/25 at 0845, For 1 dose, Based on patient request - if ordered for moderate or severe pain, provider allows for administration of a medication prescribed for a lower pain scale. (BKC) If given for pain, use the following pain scale: Mild Pain = Pain Score of 1-3, CPOT 1-2 Moderate Pain = Pain Score of 4-6, CPOT 3-4 Severe Pain = Pain Score of 7-10, CPOT 5-8 0840 (Given - Provid er: Alicia Rowland) documented in this encounter Care Teams Button Broacher Relationship Specialty Start Date End Date Mini Jacobo APRN [address] [place] [address] PCP - General Family Medicine 05/05/25 documented as of this encounter
--- OUTSIDE RECORDS SUMMARY | 2025-05-08 08:39 | XMS_ITS | Clinical Summary ---
Author Organization [facility] Address [address] [place] [address] Care Team Providers Care Physician Interventional Cardiologist Name Role Phone Mini Jacobo WILFRIDO Primary Care Provider Allergies Active Allergy Reactions Criticality Noted Date Comments Azithromycin Rash Low 04/17/2017 Latex Headache,Itching 03/10/2020 Medications fluticasone (FLONASE) 50 MCG/ACT nasal spray 2 sprays into the nostril(s) as directed by provider Daily As Needed. Active ferrous sulfate 325 (65 FE) MG tablet Take 1 tablet by mouth Daily. 0 Active levocetirizine (XYZAL) 5 MG tablet Take 5 mg by mouth Every Evening. 0 Active levothyroxine (SYNTHROID, LEVOTHROID) 50 MCG tablet Take 50 mcg by mouth Every Morning Before Breakfast. 0 Active ondansetron ODT (ZOFRAN-ODT) 4 MG disintegrating tablet DISSOLVE 1 TABLET BY MOUTH BY MOUTH EVERY SIX HOURS 0 Active Pediatric Multivitamins-Iron (FLINTSTONES COMPLETE PO) Take 2 tablets by mouth Daily. Active Active Problems Problem Noted Date Diagnosed Date Diet controlled gestational diabetes mellitus (GDM) in third trimester 04/07/2020 Previous delivery affecting 1 06/07/2019 04/07/2020 Encounters Date Type Department Care Team Description 05/05/2025 8:06 AM EST - 05/05/2025 10:54 AM EST Emergency [facility] EMERGENCY DEPARTMENT [address] [phone] Amauri Willis MD Intractable chronic migraine with aura with status migrainosus (Primary Dx) Discharge Disposition: Home or Self Care 05/05/2025 Travel from Last 3 Months Family History 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 Relation Name Comments Obesity Father Obesity Mother Relation Name Status Comments Father Mother Social History Tobacco Use Types Packs/Day Years Used Date Smoking Tobacco: Never Smokeless Tobacco: Never Tobacco Cessation:Counseling Given: No Alcohol Use Standard Drinks/Week Comments Never 0 (1 standard drink = 0.6 oz pur e alcohol) AUDIT-C Answer Date Recorded Q1: How often do you have a drink containing alc ohol? Never 05/06/2020 Average Number of Drinks Not on file Frequency of Binge Drinking Not on file [...] on file Sexual Orientation Not on file Last Filed Vital Signs Vital Sign Reading [...] Mass Index 38.03 05/05/2025 8:01 AM EST Plan of Treatment Health Maintenance Due Date Last Done Comments Annual Gynecologic Pelvic an d Breast Exam 1990 ANNUAL PHYSICAL 04/17/2017 HEPATITIS C SCREENING 04/17/2017 TDAP/TD VACCINES (2 - Td or Tdap) 02/10/2023 013 INFLUENZA VACCINE 12/25/2024 02/15/2020 Pneumococcal Vaccine 0-49 Aged Out No longer eligible based on patient's age to complete this topic Insurance [employer] [address] MEDICAID Care Teams Physician Interventional Cardiologist Relationship Specialty Start Date End Date Mini Jacobo APRN [address] [place] [address] PCP - General Family Medicine 05/05/25
--- OUTSIDE RECORDS SUMMARY | 2025-05-08 08:39 | XMS_ITS | Encounter Summary ---
Author Organization [facility] Address [address] [place] [address] Care Team Providers Care Coke Drawer Name Role Phone Ronna Rainey APRN Primary Care Provider [phone] Reason for Referral * Consultation (Routine) - Authorized Specialty Diagnoses / Procedures Referred By Contac t Referred To Contact Neurology Diagnoses Intractable chronic migraine without aura and without status migrainosus Irina Troncoso MD [address] [facility] [address] [place] [address] Phone: tel: fax: Referral ID Status Reason Start Date Expiration Date Visits Requested Visits Authorized [id number] Authorized Specialty Services Required 10/15/2025 1 1 Encounter Details Date Type Department Care Team (Late st Contact Info) Description 04/15/2024 Community [facility] [address] [place] [address] Irina Troncoso MD [address] [place] [address] [place] [address] Intractable chronic migraine without aura and [...] Primary documented in this encounter Care Teams Coke Drawer Relationship Specialty Start Date End Date Ronna Rainey, WILFRIDO [address] [place] [address] PCP - General 04/16/24 documented as of this encounter
--- OUTSIDE RECORDS SUMMARY | 2025-05-08 08:39 | XMS_ITS | Clinical Summary ---
Author Organization [facility] Address [address] [place] [address] Care Team Providers Care Toppiece Cutter Name Role Phone Unavailable Primary Care Provider Unavailabl e Encounters Date Type Department Care Team Description 02/25/2025 Transcribe Orders Patient [facility] [address] [place] [address] Order, Transcribe Rash and other nonspecific skin [...] Description 07/29/2025 1:00 PM EST Office Visit [facility] [place] [address] Radha Russell, WILFRIDO [address] [place] [address] Health Maintenance Due Date Last Done Comments [...]
--- OUTSIDE RECORDS SUMMARY | 2025-05-08 08:39 | XMS_ITS | Clinical Summary ---
Author Organization [facility] Address [address] [place] [address] Care Team Providers Care Audit Practice Intern Name Role Phone Ronna Rainey APRN Primary Care Provider [phone] Social History Tobacco Use Types Packs/Day Years [...] (2 - Td or Tdap) 02/10/2023 02/10/2013 [id number] Vaccine (3 - 2024- season) 2025 01/20/2021, [...] this topic Insurance [employer] Care Teams Audit Practice Intern Relationship Specialty Start Date End Date Ronna Rainey APRN [address] [place] [address] PCP - General 04/16/24
--- OUTSIDE RECORDS SUMMARY | 2025-05-08 08:39 | XMS_ITS | Encounter Summary ---
Author Organization [facility] Address [address] [place] [address] Care Team Providers Care Automatic Spooler Operator Name Role Phone Mini Jacobo WILFRIDO Primary Care Provider [phone] Encounter Details Date Type Department Care Team (Latest Contact Info) Description 05/05/2025 Travel Social History Tobacco Use Types Packs/Day [...] on file documented as of this encounter Functional Status * Calculated C-SSRS Risk Score (Lifetime/Recent) Answer Date of Assessment Author No Risk Indicated 05/05/2025 8:03 AM Vandana Hewitt RN * [place] Suicide Severity Rating Scale (Screener/Recent Self-Report) Question Answer Date of Assessment Author 1. Wish to be (Past 1 Month) No 025 8:03 AM Vandana Hewitt RN 2. Non-Specific Active Suici sigifredo Thoughts (Past 1 Month) No 05/05/2025 8:03 AM Carol Hewitt ea, RN 6. Suicidal Behavior (Lifetime) No 8:03 AM Vandana Hewitt RN documented as of this encounter Plan of Treatment Not on file documented as of this encounter Visit Diagnoses Not on filedocumented in this encounter Care Teams Automatic Spooler Operator Relationship Specialty Start Date End Date Mini Jacobo APRN [address] [place] [address] PCP - General Family Medicine 05/05/25 documented as of this encounter
[2025-05-08 09:43] LABS: Hematocrit 40.0 % (37.0-47.0); Hemoglobin 12.9 g/dL (12.2-16.2); Immature Granulocytes % 0.1 %; Mean Corpuscular HGB Conc 32.3 g/dL (31.8-35.4); Mean Corpuscular Hemoglobin 24.8 pg (27.0-31.2); Mean Corpuscular Volume 76.9 fl (81-99); Nucleated Red Blood Cells % 0 %; Platelet Count 351 K/mm3 (142-424); Red Blood Count 5.20 M/mm3 (4.20-5.40); Red Cell Distribution Width-SD 40.4 fL; White Blood Count 7.6 K/mm3 (4.8-10.8)
[2025-05-08 10:16] LABS: Albumin Level 4.2 g/dl (3.5-5.0); Chloride 105 mmol/L (98-107)
[2025-05-08 10:17] LABS: Potassium 4.1 mmoL/L (3.5-5.1); Sodium 143 mmol/L (136-145)
[2025-05-08 10:19] LABS: Alanine Aminotransferase 30 U/L (12-78); Albumin/Globulin Ratio 1.4 (1.1-1.8); Alkaline Phosphatase 104 U/L (38-126); Anion Gap 12.1 mEq/L (5-15); Aspartate Amino Transferase 30 U/L (14-36); Bilirubin,Total 0.5 mg/dl (0.2-1.3); Blood Urea Nitrogen 14 mg/dl (7-17); Carbon Dioxide 30 mmol/L (22.0-30.0); Creatinine,Serum 0.90 mg/dl (0.52-1.04); Estimated Glomerular Filt Rate 72 ml/min (>60); GFR (African American) 87 ML/MIN (>60); Globulin 3.0 g/dL (1.3-3.2); Total Protein,Serum 7.2 g/dl (6.3-8.2); Triglycerides 108 mg/dl (30-150)
[2025-05-08 10:20] LABS: Calcium 9.6 mg/dl (8.4-10.2); Cholesterol 215 mg/dl (140-200); Glucose 87 mg/dl (74-100); HDL Cholesterol 61 mg/dl (40-60); Magnesium 2.0 mg/dl (1.6-2.3)
[2025-05-08 10:37] LABS: Free T4 (Free Thyroxine) 0.88 ng/dl (0.78-2.19)
[2025-05-08 10:51] LABS: Thyroid Stimulating Hormone 1.67 uIU/mL (0.465-4.68)
[2025-05-08 11:10] LABS: Vitamin B12 476 pg/mL (239-931)
[2025-05-08 11:11] LABS: 25-OH Vitamin D, Total 28.5 ng/mL (30-100)
[2025-05-08 11:16] LABS: Hemoglobin A1C 5.5 % (4.0-6.0)
[2025-05-08 11:30] LABS: Folate 8.43 ng/mL
[2025-05-10 15:11] LABS: EBV Nuclear Antigen Ab, IgG 63.7 U/mL (0.0-17.9)
== END 2025-05-08 23:59 | disposition home or self-care (01) ==
PROVIDERS: PCP Nurse Practitioner Family; Visit Provider Nurse Practitioner Family
DX: R53.82 Chronic fatigue, unspecified (principal); R73.03 Prediabetes; Z13.220 Encounter for screening for lipoid disorders
CPT/HCPCS: 36415; 80053; 80061; 82306; 82607; 82746; 83036; 83735; 84439; 84443; 85025; 86664; 86665

== ENCOUNTER 2025-05-11 11:06 | Outpatient (CLI) | payer MEDICAID, SELFPAY ==
--- OUTSIDE RECORDS SUMMARY | 2025-05-05 08:06 | XMS_ITS | Encounter Summary ---
Author Organization [facility] Address [address] [place] [address] Care Team Providers Care Compliance Technician Name Role Phone Mini Jacobojose rafael ANNA Primary Care Provider [phone] Reason for Referral * Consultation (Routine) - Authorized Specialty Diagnoses / Procedures Referred By Justus arango Referred To Contact Neurology Diagnoses Intractable chronic migraine with aura with status migrainosus Procedures AL OFFICE/OUTPATIENT NEW MODERATE MDM 45 MINUTES Amauri Willis MD [address] [place] [address] Phone: tel: fax: [facility] NE[facility] [address] [facility] [address] [place] [address] Phone: tel: fax: Referral ID Status Reason Start Date Expiration Date Visits Requested Visits Authorized [id number] Authorized Specialty Services Required 08/04/2026 1 1 Reason for Visit * Reason Comments Migraine Encounter Details Date Type Department Care Team (Late st Contact Info) Description 05/05/2025 8:06 AM EST - 05/05/2025 10:54 AM EST Emergency [facility] EMERGENCY DEPARTMENT [place] [phone] Amauri Willis MD [address] [place] [address] Intractable chronic migraine with aura with status [...] 05/05/2025 8:03 AM Vandana Hewitt RN * [place] Suicide Severity Rating Scale (Screener/Recent Self-Report) Question [...] ago which as unrevealing. Records are through [facility]. I independently reviewed chart for prior documentation and results: [facility] notes reviewed. Migraines have been suspected to be related to second- hand marijuana, anxiety, stress and suspected bruxism. Workup has been unrevealing. Exam nonfocal. improved with topiramate though patient discontinued med due to brain fog. I do not have any prior MRI reports available in the [facility] Records however Patient disclosed that [...] Rowland) documented in this encounter Care Teams Compliance Technician Relationship Specialty Start Date End Date Mini Jacobo APRN [address] [place] [address] PCP - General Family Medicine 05/05/25 documented as of this encounter
--- OUTSIDE RECORDS SUMMARY | 2025-05-11 11:13 | XMS_ITS | Encounter Summary ---
Author Organization [facility] Address [address] [place] [address] Care Team Providers Care Soda Fountain Manager Name Role Phone Ronna Rainey APRN Primary Care Provider [phone] Reason for Referral * Consultation (Routine) - Authorized Specialty Diagnoses / Procedures Referred By Contac t Referred To Contact Neurology Diagnoses Intractable chronic migraine without aura and without status migrainosus Irina Troncoso MD [address] [facility] [address] [place] [address] Phone: tel: fax: Referral ID Status Reason Start Date Expiration Date Visits Requested Visits Authorized [id number] Authorized Specialty Services Required 10/15/2025 1 1 Encounter Details Date Type Department Care Team (Late st Contact Info) Description 04/15/2024 Community [facility] [address] [place] [address] Irina Troncoso MD [address] [place] [address] [place] [address] Intractable chronic migraine without aura and [...] Primary documented in this encounter Care Teams Soda Fountain Manager Relationship Specialty Start Date End Date Ronna Rainey, WILFRIDO [address] [place] [address] PCP - General 04/16/24 documented as of this encounter
--- OUTSIDE RECORDS SUMMARY | 2025-05-11 11:13 | XMS_ITS | Clinical Summary ---
Author Organization [facility] Address [address] [place] [address] Care Team Providers Care Bench Manager Name Role Phone Ronna Rainey APRN Primary Care Provider [phone] Social History Tobacco Use Types Packs/Day Years [...] (2 - Td or Tdap) 02/10/2023 02/10/2013 [id number] Vaccine (3 - 2024- season) 2025 01/20/2021, 12/19/2020 [facility]-Influenza Vaccine (#1) 2025 02/15/2020 [facility]-Zoster Vaccines (1 of 2) 2040 [facility]-Hepatitis A Vaccines Aged Out 10/08/2017 No longer eligible based on patient's age to complete this topic HPV Vaccines (No Doses Required) Completed [facility]-HIB Vaccines Aged Out No longer e [...] this topic Insurance [employer] Care Teams Bench Manager Relationship Specialty Start Date End Date Ronna Rainey APRN [address] [place] [address] PCP - General 04/16/24
--- OUTSIDE RECORDS SUMMARY | 2025-05-11 11:13 | XMS_ITS | Clinical Summary ---
Author Organization [facility] Address [address] [place] [address] Care Team Providers Care Pneumatic Tool Operator Name Role Phone Mini Jacobo WILFRIDO Primary Care Provider [phone] Allergies Active Allergy Reactions Criticality Noted Date [...] EST - 05/05/2025 10:54 AM EST Emergency [facility] [address] [address] Amauri Willis MD Intractable chronic [...] to complete this topic Insurance [employer] [address] MEDICAID Care Teams Pneumatic Tool Operator Relationship Specialty Start Date End Date Mini Jacobo APRN [address] [place] [address] PCP - General Family Medicine 05/05/25
--- OUTSIDE RECORDS SUMMARY | 2025-05-11 11:13 | XMS_ITS | Clinical Summary ---
Author Organization [facility] Address [address] [place] [address] Care Team Providers Care Bow Maker Name Role Phone Unavailable Primary Care Provider Unavailabl e Encounters Date Type Department Care Team Description 02/25/2025 Transcribe Orders Patient Access Center [address] [place] [address] Order, Transcribe Rash and other nonspecific skin [...] Description 07/29/2025 1:00 PM EST Office Visit [facility] [address] [place] [address] Radha Russell, WILFRIDO [address] [place] [address] Health Maintenance Due Date Last Done Comments [...]
--- OUTSIDE RECORDS SUMMARY | 2025-05-11 11:13 | XMS_ITS | Encounter Summary ---
Author Organization [facility] Address [address] [place] [address] Care Team Providers Care Station Examiner Name Role Phone Mini Jacobo WILFRIDO Primary Care Provider [phone] Encounter Details Date Type Department Care Team [...] 05/05/2025 8:03 AM Vandana Hewitt RN * [place] Suicide Severity Rating Scale (Screener/Recent Self-Report) Question [...] on filedocumented in this encounter Care Teams Station Examiner Relationship Specialty Start Date End Date Mini Jacobo APRN [address] [place] [address] PCP - General Family Medicine 05/05/25 documented as of this encounter
== END 2025-05-11 23:59 | disposition home or self-care (01) ==
LOC: LAB 11:07
PROVIDERS: PCP Nurse Practitioner Family; Visit Provider Obstetrics & Gynecology
DX: E28.39 Other primary ovarian failure (principal); R73.03 Prediabetes; R53.82 Chronic fatigue, unspecified; Z13.220 Encounter for screening for lipoid disorders
CPT/HCPCS: 36415

== ENCOUNTER 2025-05-17 11:53 | Outpatient (CLI) | payer MEDICAID, SELFPAY ==
--- OUTSIDE RECORDS SUMMARY | 2025-05-05 08:06 | XMS_ITS | Encounter Summary ---
Author Organization [facility] Address [address] [place] [address] Care Team Providers Care Nailer Hand Name Role Phone Mini Jacobojose rafael ANNA Primary Care Provider [phone] Reason for Referral * Consultation (Routine) - Authorized Specialty Diagnoses / Procedures Referred By Justus arango Referred To Contact Neurology Diagnoses Intractable chronic migraine with aura with status migrainosus Procedures LA OFFICE/OUTPATIENT NEW MODERATE MDM 45 MINUTES Amauri Willis MD [address] [place] [address] Phone: tel: fax: [facility] [address] [facility] [address] [place] [address] Phone: tel: fax: Referral ID Status Reason Start Date Expiration Date Visits Requested Visits Authorized [id number] Authorized Specialty Services Required 08/04/2026 1 1 Reason for Visit * Reason Comments Migraine Encounter Details Date Type Department Care Team (Late st Contact Info) Description 05/05/2025 8:06 AM EST - 05/05/2025 10:54 AM EST Emergency [facility] EMERGENCY DEPARTMENT [place] [phone] Amauri Willis MD [address] [place] [address] Intractable chronic migraine with aura with status [...] 05/05/2025 8:03 AM Vandana Hewitt RN * [place] Suicide Severity Rating Scale (Screener/Recent Self-Report) Question Answer Date of Assessment Author 1. Wish to be (Past 1 Month) No 025 8:03 AM Vandana Hewitt RN 2. Non-Specific Active Suici sigifredo Thoughts (Past 1 Month) No 05/05/2025 8:03 AM EST Carol Martinez ea, RN 6. Suicidal Behavior (Lifetime) No [...] ago which as unrevealing. Records are through [facility]. I independently reviewed chart for prior documentation and results: [facility] notes reviewed. Migraines have been suspected to be related to second- hand marijuana, anxiety, stress and suspected bruxism. Workup has been unrevealing. Exam nonfocal. improved with topiramate though patient discontinued med due to brain fog. I do not have any prior MRI reports available in the [facility] Records however Patient disclosed that she has had 1 in the last year and was told it was normal. Nurses Notes reviewed and agree, including vitals, allergies, social history and prior medical history. REVIEW OF SYSTEMS: All systems reviewed and not pertinent unless noted. Past 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: Diagnosis Date Acid reflux Allergic Anxiety Colitis Depression Gestational diabetes mellitus (GDM) 2019 Hypothyroidism dx 2019 Migraines Otitis media Allergies: [...] presentation. ED Course as of 05/05/25 1034 Wed May 05, 2025 1033 GARCIA improved. Fundoscopic exam [...] 1 dose 0840 (Given - Provid er: Alicia Rowland) ketorolac (TORADOL) injection 15 mg (COMPLETED) [...] Rowland) documented in this encounter Care Teams Nailer Hand Relationship Specialty Start Date End Date Mini Jacobo APRN [address] [place] [address] PCP - General Family Medicine 05/05/25 documented as of this encounter
--- NOTE | 2025-05-17 11:56 | XR_ITS ---
FINAL REPORT CLINICAL HISTORY: R pinky finger pain, no injury COMPARISON: None FINDINGS: Three views of the right hand 5th digit show no evidence of an acute, displaced fracture dislocation of the visualized bony architecture. The joint spaces appear normal. IMPRESSION: Unremarkable exam. Reviewed, Interpreted and Dictated by Maik Nava MD Transcribed by Shirlene Beavers Authenticated and [facility]
--- OUTSIDE RECORDS SUMMARY | 2025-05-17 11:56 | XMS_ITS | Encounter Summary ---
Author Organization [facility] Address [address] [place] [address] Care Team Providers Care Channel Marketing Manager Name Role Phone Ronna Rainey APRN Primary Care Provider [phone] Reason for Referral * Consultation (Routine) - Authorized Specialty Diagnoses / Procedures Referred By Contac t Referred To Contact Neurology Diagnoses Intractable chronic migraine without aura and without status migrainosus Irina Troncoso MD [address] [facility] [address] [place] [address] Phone: tel: fax: Referral ID Status Reason Start Date Expiration Date Visits Requested Visits Authorized [id number] Authorized Specialty Services Required 10/15/2025 1 1 Encounter Details Date Type Department Care Team (Late st Contact Info) Description 04/15/2024 Community [facility] Community Practice [address] [place] [address] Irina Troncoso MD [address] [place] [address] [place] [address] Intractable chronic migraine without aura and [...] Primary documented in this encounter Care Teams Channel Marketing Manager Relationship Specialty Start Date End Date Ronna Rainey, WILFRIDO [address] [place] [address] PCP - General 04/16/24 documented as of this encounter
--- OUTSIDE RECORDS SUMMARY | 2025-05-17 11:56 | XMS_ITS | Clinical Summary ---
Author Organization [facility] Address [address] [place] [address] Care Team Providers Care Literary Agent Name Role Phone Unavailable Primary Care Provider Unavailabl e Encounters Date Type Department Care Team Description 02/25/2025 Transcribe Orders Patient Access Center [address] [place] [address] Order, Transcribe Rash and other nonspecific skin [...] 1:00 PM EST Office Visit [facility] [address] [place] [address] Radha Russell, WILFRIDO [address] [place] [address] Health Maintenance Due Date Last Done Comments [...] to complete this topic [place] [address]
--- OUTSIDE RECORDS SUMMARY | 2025-05-17 11:56 | XMS_ITS | Clinical Summary ---
Author Organization [facility] Address [address] [place] [address] Care Team Providers Care Electronic Security Specialist Name Role Phone Ronna Rainey APRN Primary Care Provider [phone] Social History Tobacco Use Types Packs/Day Years [...] (2 - Td or Tdap) 02/10/2023 02/10/2013 [id number] Vaccine (3 - 2024- season) 2025 01/20/2021, [...] this topic Insurance [employer] Care Teams Electronic Security Specialist Relationship Specialty Start Date End Date Ronna Rainey APRN [address] [place] [address] PCP - General 04/16/24
--- OUTSIDE RECORDS SUMMARY | 2025-05-17 11:56 | XMS_ITS | Clinical Summary ---
Author Organization [facility] Address [address] [place] [address] Care Team Providers Care Bridge Crane Operator Name Role Phone Mini Jacobo WILFRIDO [...] EST - 05/05/2025 10:54 AM EST Emergency [facility] [address] [address] Amauri Willis MD Intractable chronic [...] to complete this topic Insurance [employer] [address] MEDICAID Care Teams Bridge Crane Operator Relationship Specialty Start Date End Date Mini Jacobo APRN [address] [place] [address] PCP - General Family Medicine 05/05/25
--- OUTSIDE RECORDS SUMMARY | 2025-05-17 11:56 | XMS_ITS | Encounter Summary ---
Author Organization [facility] Address [address] [place] [address] Care Team Providers Care Power Equipment Technology Instructor Name Role Phone Mini Jacobo WILFRIDO Primary Care Provider [phone] Encounter Details Date Type Department Care Team [...] on filedocumented in this encounter Care Teams Power Equipment Technology Instructor Relationship Specialty Start Date End Date Mini Jacobo APRN [address] [place] [address] PCP - General Family Medicine 05/05/25 documented as of this encounter
== END 2025-05-17 23:59 | disposition home or self-care (01) ==
LOC: RAD 11:54
PROVIDERS: PCP Nurse Practitioner Family; Visit Provider Student in an Organized Health Care Education/Training Program
DX: M79.644 Pain in right finger(s) (principal)
CPT/HCPCS: 73140